=== PATIENT | male | born 1975 | race Caucasian/White ===

== ENCOUNTER 2024-11-11 13:54 | Inpatient (IN) | payer OTHER, SELFPAY ==
[2024-11-10 19:43] VITALS: BP 108/79
--- NOTE | 2024-11-10 19:43 | ED.GENMED ---
ED Provider Triage
<Kesha Carrion PA-C - Last Filed: 11/10/24 19:52>
-
Patient seen by provider in Triage?: Seen in Triage
Attestation: A medical screening examination has been initiated by a qualified medical provider. Based on the assessment performed at this time, it has been determined that an emergent medical condition may exist and the patient has been informed
that further medical evaluation and possible additional diagnostic testing may be needed.
HPI: 49yoM here with bilateral leg swelling x 1 week. Improved temporarily with prednisone. Also c/o abd pain/bloating x 2 weeks. C/o SOB when leaning over and with stress.
GENERAL: Alert , in no apparent distress
EYE: No visual abnormalities.
NECK: Trachea midline
ENT: No visible abnormalities.
LUNGS: No acute respiratory distress
NEUROLOGICAL: Alert and oriented
SKIN: Skin intact. No visible changes.
MUSCULOSKELETAL: Moving extremities normally
PSYCH: Normal and appropriate interaction.
This is a medical evaluation conducted in person to initiate diagnostic evaluation and provide initial therapeutics. Please see further documentation by the treating clinician.
History of Present Illness
<Kesha Carrion PA-C - Last Filed: 11/10/24 19:52>
General
Chief Complaint: Abnormal Lab Value
Time Seen by Provider: 11/10/24 21:20
<India Denise DO - Last Filed: 11/12/24 08:12>
History of Present Illness
History of Present Illness:
49-year-old male with history of prior [place] spotted fever presenting to the emergency department for multiple complaints. Patient reports that he has been following up with his primary care doctor, who sent him in for evaluation. Patient
reports in the past few weeks he has been having abdominal bloating and discomfort to the lower aspect of the abdomen. In the past 2 weeks he started to develop swelling to his lower abdomen into his testicles, which is since has progressed to his
lower extremities. He also reports shortness of breath upon exertion and when leaning forward. Denies any history of cardiac disease. Denies any associated chest pain. Denies fever or cough. He was given prednisone by his primary care doctor
which temporarily helped his symptoms, however when he stopped the prednisone his symptoms resumed. His primary care doctor checked a BNP which was elevated, but also checked a D-dimer which was elevated. He denies any history of blood clots,
recent surgery, recent travel. Denies additional acute medical complaints
Past History
<Kesha Carrion PA-C - Last Filed: 11/10/24 19:52>
Past History
ED Past Medical History: Asthma (Uses a pro-air inhaler and Singulair as needed. He has not used them recently.)
ED Past Surgical History: Other (wisdom teeth)
Social History
Tobacco: Non-smoker
Personal:
Living: with family
Employment: Employed
Phy Exam
<India Denise DO - Last Filed: 11/12/24 08:12>
Physical Exam
Physical Exam:
General: Well-appearing, no clinical signs of dehydration, nontoxic and in no acute distress
HEENT: protecting airway
Neck: appears supple
CV: Normal heart rate, regular rhythm
Resp: No accessory muscle use, no increased work of breathing, diminished air movement to the right lung field
Abd: Mild distention without any focal tenderness
Extremities: +2 pitting edema to bilateral lower extremities, symmetrical. No erythema or warmth to the extremities. Mild swelling to bilateral upper extremities as well
Neuro: alert, no focal neurologic deficit
: deferred
Rectal: deferred
Psych: Normal affect
Skin: Intact
Course
<Kesha Carrion PA-C - Last Filed: 11/10/24 19:52>
Orders/Labs/Results
Orders:
Orders
11/10/24 19:50
Venous Doppler Lwr Ext Bilat [US Periph Venous LOWER Ext Lester] Urgent
Comment:
Reason For Exam: bilateral leg swelling
11/10/24 19:51
Electrocardiogram (*1) Urgent
Reason for Study: Shortness of Breath
EKG- Treatment ONCE
11/10/24 19:57
Complete Blood Count/With Diff Urgent
Comprehensive Metabolic Panel Urgent
Lipase Urgent
Troponin I Urgent
11/10/24 20:01
CT Pe/abd/pel W Urgent
Comment:
Reason For Exam: SOB, elevated D-dimer, abd pain
11/10/24 21:44
PTT Urgent
Prothrombin Time Urgent
11/10/24 22:42
Acetaminophen [Tylenol] 1,000 mg PO NOW STA
11/10/24 22:59
Add On- LAB Urgent
Tests Added?: BNP
11/10/24 23:00
Flush (0.9% Sodium Chloride) [Flush (Nss)] See Dose Instructions IV PER PROTOCOL
11/10/24 23:15
Furosemide [Lasix] 40 mg IV ONCE ONE
11/11/24 00:37
Admit/Transfer Patient As Directed
Co-Sign Provider:
Level of Care: Observation services
Assign to:: Telemetry
Physician / Group: Juan Manuel
Diagnosis: Ascites / Edema
Reason for Telemetry: Arrhythmia
Date to Stop Telemetry: 11/14/24
Time to Stop Telemetry: 11:00
Reason for Hospitalization: Ascites / Edema
Expected length of stay greater than two midnights?: Yes
ELOS- Estimated Length of Stay in days: 2
I certify the patient meets the requirements for IP care: Yes
11/11/24 00:38
Code Status As Directed
Resuscitation Status: Full Code
PRN Pain Medication Management As Directed
May give lesser potent ordered pain med per pt: Yes
preference::
Protocol:: Medication orders for pain may be administered in a
manner that supports deferring to patient preference
when the pt is:
- Requesting an ordered lesser potent pain medication.
Least to most potent pain medications are defined
as: acetaminophen < NSAID < tramadol < opioids
(morphine, oxycodone, hydromorphone).
- Requesting a lesser dose of the same medication IF
ORDERED.
- Requesting a less intrusive route of administration
if both routes are prescribed by the provider (PO <
IV).
11/11/24 01:44
0.9% Sodium Chloride [Nss (Preservative Free)] See Protocol IV PRN PRN
Acetaminophen [Tylenol] 650 mg PO Q4HPRN PRN
Albuterol Nebs [Ventolin Nebules] 2.5 mg INH R Q4HPRN PRN
FOLic ACID [Folvite] 1 mg 0.9% Sodium Chloride 50 ml [Nss] 50 ml IV DAILYPRN
Lorazepam [Ativan] 1 mg IV Q1HPRN PRN
Lorazepam [Ativan] 1 mg PO Q2HPRN PRN
Lorazepam [Ativan] 2 mg IV Q1HPRN PRN
Ondansetron Injectable [Zofran] 4 mg IV Q6HPRN PRN
Polyethylene Glycol Powder [Miralax] 17 grams PO DAILY PRN
11/11/24 01:44
Echo 2D MMode Doppler [Echo 2D MMode Color/Doppler] Routine
Reason for Study: Edema / Ascites
Case Management Consult Once
Case Management Consult: Other
Comment: Substance abuse counseling
Consult Notification Routine
Specialty to Notify: Hematology
Date consulting provider notified: 11/11/24
Time consulting provider notified: 10:09
Notified:: Provider
Consult Notification Routine
Specialty to Notify: Infectious Disease
Date consulting provider notified: 11/11/24
Time consulting provider notified: 10:08
Notified:: Provider
DIETARY CONSULT Routine
Reason for Consult: Nutrition support, possible refeeding guidelines
HEMATOLOGY CONSULT Routine
Consulting Provider: Rafael Espana
Was physician already notified: No
Reason for consult: Adenopathy / Ascites
INFECTIOUS DISEASE CONSULT Routine
Consulting Provider: Samy Higgins
Was physician already notified: No
Reason for consult: Edema / Adenopathy
Activity As Directed
Activity Level: Ambulate
Bladder Scan As Directed
Follow Bladder Retention/Intermittent Cath Algorithm?: Yes
PRN if no void in __ hours: 6
Frequency: Per Retention Algorithm
If Bladder Scan Result >: 400
then:: Straight cath
EKG with chest pain [ECG as needed] As Directed
ECG as needed for:: Chest Pain
I/O [Intake/ Output] As Directed
Frequency: Per unit guidelines
MSAS SCORE As Directed
MSAS Score 0-4: Repeat MSAS every 2 hours until 0-4 for three consecutive assessments, then every 4 hours x 48
hours.
MSAS Score 5-7: For MILD withdrawl symptoms. Repeat MSAS and RASS every 2 hours
MSAS Score 8-11: For MODERATE withdrawal symptoms. Repeat MSAS and RASS every 1 hour. Consider ICU or IMU
level of care.
MSAS Score > 11: For SEVERE withdrawal symptoms. Repeat MSAS and RASS every 1 hour. Notify provider, consider
ICU level of care.
MSAS Additional Instructions: If no improvement or no decrease in score from severe to moderate within 12
hours, consult psychiatry
MSAS Notify Provider: Notify provider if patient requires more than 10 mg of Lorazepam in eight hour period.
Straight Cath As Directed
Frequency: Per Retention Algorithm
Additional Instructions: straight cath as needed per acute urinary retention algorithm for 24 hrs
Additional Instructions: for bladder scan greater than 400 mL
Vital Signs As Directed
Frequency: Per unit guidelines
Weight As Directed
Frequency: Daily
Oxygen Therapy [O2 Therapy] [RESP] Routine
Titrate/Wean O2 to maintain O2 sat greater than (%): 94
DX Deep Vein Thrombosis Video Routine
11/11/24 02:27
CRP [C-Reactive Protein] Routine
Hepatitis C Antibody Routine
TSH Reflex To Free T4 Routine
11/11/24 02:28
ESR [Erythrocyte Sed Rate] Routine
Glycohemoglobin (HgbA1c) Routine
HIV 4th Generation [HIV Combo] Routine
Troponin I Q6H
11/11/24 Breakfast
Regular
At Your Request: Full Participation
11/11/24 08:00
FOLic ACID [Folvite] 1 mg PO DAILY
Pantoprazole [Protonix] 40 mg PO DAILY
Thiamine Injection 200 mg IV Q12
11/11/24 08:02
Basic Metabolic Panel IN AM
Complete Blood Count/No Diff IN AM
Troponin I Q6H
11/11/24 10:00
Furosemide [Lasix] 40 mg IV DAILY
11/11/24 13:46
Change in Level of Care [Level of Care Change] As Directed
Level of Care: Inpatient admission
Reason for Hospitalization: edema
Expected length of stay greater than two midnights?: Yes
ELOS- Estimated Length of Stay in days: 3
I certify the patient meets the requirements for IP care: Yes
11/11/24 18:00
Enoxaparin Sodium [Lovenox] 40 mg SC QPM
11/11/24 20:00
Fluticasone/Salmeterol 115/21 [Advair Hfa 115/21 Mcg Inhaler] 2 puff INH R QPM
11/12/24 07:04
CBC/No Diff [Complete Blood Count/No Diff] IN AM
CMP [Comprehensive Metabolic Panel] IN AM
11/14/24 08:00
Thiamine HCl [Vitamin B1] 100 mg PO BID
12/22/24 11:00
DC Protocol for Telemetry ONCE
Abnormal Lab Results
11/10/24 11/10/24 11/11/24
19:57 21:44 02:27
RBC
MCV 95.0 H fL
(80.0-94.0)
MCH
MCHC 32.5 L g/dL
(33.0-37.0)
PT 14.8 H Sec
(11.4-14.6)
Potassium 5.3 H mmol/L
(3.5-5.1)
BUN 25 H mg/dl
(9-20)
Glucose 116 H mg/dl
(70-99)
Hemoglobin A1c
C-Reactive Protein 10.90 H mg/L
(0.0-10.00)
Total Protein 6.0 L g/dl
(6.3-8.2)
11/11/24 11/11/24
02:28 08:02
RBC 4.62 L 10^6/uL
(4.70-6.10)
MCV 95.5 H fL
(80.0-94.0)
MCH 31.6 H pg
(27.0-31.0)
MCHC
PT
Potassium
BUN 21 H mg/dl
(9-20)
Glucose
Hemoglobin A1c 5.8 H %
(4.0-5.6)
C-Reactive Protein
Total Protein
11/11/24 08:02
11/11/24 08:02
Vital Signs
Initial and Last Documented VS:
Initial Vital Signs
Temp Pulse Resp BP Pulse Ox
98.2 F 113 22 108/79 100
11/10/24 19:43 11/10/24 19:43 11/10/24 19:43 11/10/24 19:43 11/10/24 19:43
Last Documented Vital Signs
Temp Pulse Resp BP Pulse Ox
98.3 F 102 18 99/72 98
11/12/24 08:01 11/12/24 08:01 11/12/24 08:01 11/12/24 08:01 11/12/24 08:01
<India Denise, - Last Filed: 11/12/24 08:12>
Orders/Labs/Results
Orders:
Orders
11/10/24 19:50
Venous Doppler Lwr Ext Bilat [US Periph Venous LOWER Ext Lester] Urgent
Comment:
Reason For Exam: bilateral leg swelling
11/10/24 19:51
Electrocardiogram (*1) Urgent
Reason for Study: Shortness of Breath
EKG- Treatment ONCE
11/10/24 19:57
Complete Blood Count/With Diff Urgent
Comprehensive Metabolic Panel Urgent
Lipase Urgent
Troponin I Urgent
11/10/24 20:01
CT Pe/abd/pel W Urgent
Comment:
Reason For Exam: SOB, elevated D-dimer, abd pain
11/10/24 21:44
PTT Urgent
Prothrombin Time Urgent
11/10/24 22:42
Acetaminophen [Tylenol] 1,000 mg PO NOW STA
11/10/24 22:59
Add On- LAB Urgent
Tests Added?: BNP
11/10/24 23:00
Flush (0.9% Sodium Chloride) [Flush (Nss)] See Dose Instructions IV PER PROTOCOL
11/10/24 23:15
Furosemide [Lasix] 40 mg IV ONCE ONE
11/11/24 00:37
Admit/Transfer Patient As Directed
Co-Sign Provider:
Level of Care: Observation services
Assign to:: Telemetry
Physician / Group: Juan Manuel
Diagnosis: Ascites / Edema
Reason for Telemetry: Arrhythmia
Date to Stop Telemetry: 11/14/24
Time to Stop Telemetry: 11:00
Reason for Hospitalization: Ascites / Edema
Expected length of stay greater than two midnights?: Yes
ELOS- Estimated Length of Stay in days: 2
I certify the patient meets the requirements for IP care: Yes
11/11/24 00:38
Code Status As Directed
Resuscitation Status: Full Code
PRN Pain Medication Management As Directed
May give lesser potent ordered pain med per pt: Yes
preference::
Protocol:: Medication orders for pain may be administered in a
manner that supports deferring to patient preference
when the pt is:
- Requesting an ordered lesser potent pain medication.
Least to most potent pain medications are defined
as: acetaminophen < NSAID < tramadol < opioids
(morphine, oxycodone, hydromorphone).
- Requesting a lesser dose of the same medication IF
ORDERED.
- Requesting a less intrusive route of administration
if both routes are prescribed by the provider (PO <
IV).
11/11/24 01:44
0.9% Sodium Chloride [Nss (Preservative Free)] See Protocol IV PRN PRN
Acetaminophen [Tylenol] 650 mg PO Q4HPRN PRN
Albuterol Nebs [Ventolin Nebules] 2.5 mg INH R Q4HPRN PRN
FOLic ACID [Folvite] 1 mg 0.9% Sodium Chloride 50 ml [Nss] 50 ml IV DAILYPRN
Lorazepam [Ativan] 1 mg IV Q1HPRN PRN
Lorazepam [Ativan] 1 mg PO Q2HPRN PRN
Lorazepam [Ativan] 2 mg IV Q1HPRN PRN
Ondansetron Injectable [Zofran] 4 mg IV Q6HPRN PRN
Polyethylene Glycol Powder [Miralax] 17 grams PO DAILY PRN
11/11/24 01:44
Echo 2D MMode Doppler [Echo 2D MMode Color/Doppler] Routine
Reason for Study: Edema / Ascites
Case Management Consult Once
Case Management Consult: Other
Comment: Substance abuse counseling
Consult Notification Routine
Specialty to Notify: Hematology
Date consulting provider notified: 11/11/24
Time consulting provider notified: 10:09
Notified:: Provider
Consult Notification Routine
Specialty to Notify: Infectious Disease
Date consulting provider notified: 11/11/24
Time consulting provider notified: 10:08
Notified:: Provider
DIETARY CONSULT Routine
Reason for Consult: Nutrition support, possible refeeding guidelines
HEMATOLOGY CONSULT Routine
Consulting Provider: Rafael Espana
Was physician already notified: No
Reason for consult: Adenopathy / Ascites
INFECTIOUS DISEASE CONSULT Routine
Consulting Provider: Samy Higgins
Was physician already notified: No
Reason for consult: Edema / Adenopathy
Activity As Directed
Activity Level: Ambulate
Bladder Scan As Directed
Follow Bladder Retention/Intermittent Cath Algorithm?: Yes
PRN if no void in __ hours: 6
Frequency: Per Retention Algorithm
If Bladder Scan Result >: 400
then:: Straight cath
EKG with chest pain [ECG as needed] As Directed
ECG as needed for:: Chest Pain
I/O [Intake/ Output] As Directed
Frequency: Per unit guidelines
MSAS SCORE As Directed
MSAS Score 0-4: Repeat MSAS every 2 hours until 0-4 for three consecutive assessments, then every 4 hours x 48
hours.
MSAS Score 5-7: For MILD withdrawl symptoms. Repeat MSAS and RASS every 2 hours
MSAS Score 8-11: For MODERATE withdrawal symptoms. Repeat MSAS and RASS every 1 hour. Consider ICU or IMU
level of care.
MSAS Score > 11: For SEVERE withdrawal symptoms. Repeat MSAS and RASS every 1 hour. Notify provider, consider
ICU level of care.
MSAS Additional Instructions: If no improvement or no decrease in score from severe to moderate within 12
hours, consult psychiatry
MSAS Notify Provider: Notify provider if patient requires more than 10 mg of Lorazepam in eight hour period.
Straight Cath As Directed
Frequency: Per Retention Algorithm
Additional Instructions: straight cath as needed per acute urinary retention algorithm for 24 hrs
Additional Instructions: for bladder scan greater than 400 mL
Vital Signs As Directed
Frequency: Per unit guidelines
Weight As Directed
Frequency: Daily
Oxygen Therapy [O2 Therapy] [RESP] Routine
Titrate/Wean O2 to maintain O2 sat greater than (%): 94
DX Deep Vein Thrombosis Video Routine
11/11/24 02:27
CRP [C-Reactive Protein] Routine
Hepatitis C Antibody Routine
TSH Reflex To Free T4 Routine
11/11/24 02:28
ESR [Erythrocyte Sed Rate] Routine
Glycohemoglobin (HgbA1c) Routine
HIV 4th Generation [HIV Combo] Routine
Troponin I Q6H
11/11/24 Breakfast
Regular
At Your Request: Full Participation
11/11/24 08:00
FOLic ACID [Folvite] 1 mg PO DAILY
Pantoprazole [Protonix] 40 mg PO DAILY
Thiamine Injection 200 mg IV Q12
11/11/24 08:02
Basic Metabolic Panel IN AM
Complete Blood Count/No Diff IN AM
Troponin I Q6H
11/11/24 10:00
Furosemide [Lasix] 40 mg IV DAILY
11/11/24 13:46
Change in Level of Care [Level of Care Change] As Directed
Level of Care: Inpatient admission
Reason for Hospitalization: edema
Expected length of stay greater than two midnights?: Yes
ELOS- Estimated Length of Stay in days: 3
I certify the patient meets the requirements for IP care: Yes
11/11/24 18:00
Enoxaparin Sodium [Lovenox] 40 mg SC QPM
11/11/24 20:00
Fluticasone/Salmeterol 115/21 [Advair Hfa 115/21 Mcg Inhaler] 2 puff INH R QPM
11/12/24 07:04
CBC/No Diff [Complete Blood Count/No Diff] IN AM
CMP [Comprehensive Metabolic Panel] IN AM
11/14/24 08:00
Thiamine HCl [Vitamin B1] 100 mg PO BID
11/14/24 11:00
DC Protocol for Telemetry ONCE
Abnormal Lab Results
11/10/24 11/10/24 11/11/24
19:57 21:44 02:27
RBC
MCV 95.0 H fL
(80.0-94.0)
MCH
MCHC 32.5 L g/dL
(33.0-37.0)
PT 14.8 H Sec
(11.4-14.6)
Potassium 5.3 H mmol/L
(3.5-5.1)
BUN 25 H mg/dl
(9-20)
Glucose 116 H mg/dl
(70-99)
Hemoglobin A1c
C-Reactive Protein 10.90 H mg/L
(0.0-10.00)
Total Protein 6.0 L g/dl
(6.3-8.2)
11/11/24 11/11/24
02:28 08:02
RBC 4.62 L 10^6/uL
(4.70-6.10)
MCV 95.5 H fL
(80.0-94.0)
MCH 31.6 H pg
(27.0-31.0)
MCHC
PT
Potassium
BUN 21 H mg/dl
(9-20)
Glucose
Hemoglobin A1c 5.8 H %
(4.0-5.6)
C-Reactive Protein
Total Protein
11/11/24 08:02
11/11/24 08:02
Vital Signs
Initial and Last Documented VS:
Initial Vital Signs
Temp Pulse Resp BP Pulse Ox
98.2 F 113 22 108/79 100
11/10/24 19:43 11/10/24 19:43 11/10/24 19:43 11/10/24 19:43 11/10/24 19:43
Last Documented Vital Signs
Temp Pulse Resp BP Pulse Ox
98.3 F 102 18 99/72 98
11/12/24 08:01 11/12/24 08:01 11/12/24 08:01 11/12/24 08:01 11/12/24 08:01
<India Denise, DO - Last Filed: 11/12/24 08:12>
MDM/Problems Addressed
MDM/Problems Addressed:
49-year-old male with prior history of [place] spotted fever presenting for abdominal bloating, lower extremity swelling, dyspnea. Vital signs on arrival significant for tachycardia.
On exam patient is resting comfortably, however is tachycardic at rest. Patient in no acute discomfort, however does have abdominal bloating, pitting edema to bilateral upper and lower extremities. Diminished air movement to the right lung field.
Differential considerations include acute onset of CHF versus PE. Lower suspicion for pneumonia or infection, no fever, no cough. Patient had medical screening exam completed prior to my assessment. Given known outpatient elevated D-dimer, plan
for CT of the chest imaging as well as CT of the abdomen imaging due to abdominal bloating and discomfort. Plan also for lower extremity ultrasound imaging to rule out DVT. EKG obtained, nonischemic, however is tachycardic. Plan for troponin, BNP.
23:00- Ultrasound is negative for DVT. CT is consistent with moderate right pleural effusion. Patient also has abdominal ascites and hepatomegaly, and cardiac enlargement. At this time suspecting diagnosis of CHF. CT also shows multiple areas of
adenopathy. Underlying malignancy is also consideration. Given persistent tachycardia and degree of swelling, feel warrants admission for IV diuresis and cardiac consultation, possible heme/onc.
<India Denise DO - Last Filed: 11/12/24 08:12>
*EKG
Interpreted by ED Provider?: Yes
EKG Intrepretation Date: 11/10/24
EKG Intrepretation Time: 23:06
Interpretation: abnormal
Comparison EKG: changes noted
Heart Rate: 111
Rate: tachycardiac
Rhythm: sinus
[place]: normal axis
Interval: normal interval
QRS Pattern: normal QRS
Ischemia: no ischemia
*Critical Care Note
Total Time (30-74mins, 75-104mins- exclusive of procedures): Not Applicable
ED Attending Note
<Kesha Carrion PA-C - Last Filed: 11/10/24 19:52>
-
Portions of this chart may have been created with voice recognition software.� Occasional wrong word or��sound alike� substitutions may have occurred due to the inherent limitations of voice recognition software.
Discharge Plan
Departure
Patient Disposition: Admit
Date of Disposition: 11/10/24
Time of Disposition: 23:22
Presentation/result/management discussed w/ accepting MD/DO: Hospitalist
Patient with high blood pressure during this ER visit?: No
Condition: Good
Discharge Problem:
Pleural effusion, Dyspnea on exertion
Interventions
Interventions:
*Risk Screen - Suicide Last Done: 11/11/24 01:54
*General Assessment Last Done: 11/10/24 22:10
*Neglect/Abuse Screening Last Done: 11/10/24 19:43
ED- Fall Risk Assessment Last Done: 11/10/24 22:10
*ED COVID-19 Vaccine History Last Done: 11/11/24 01:54
*Nursing Disposition Last Done: 11/11/24 01:35
Discharge Date and Time
Discharge Date/Time: 11/11/24 01:36
[2024-11-10 20:03] LABS: % Basophils 0.5 % (0-2); % Eosinophils 3.8 % (0-6); % Immature Granulocytes 0.4 % (0-0.5); % Lymphocytes 22.4 % (20.5-51.1); % Monocytes 6.5 % (1.7-9.3); % Neutrophils 66.4 % (42.2-75.2); Absolute Eosinophils 0.3 10^3/uL (0-0.7); Absolute Lymphocytes 1.8 10^3/uL (1.2-3.4); Absolute Monocytes 0.5 10^3/uL (0.1-0.6); Absolute Neutrophils 5.5 10^3/uL (1.4-6.5); Hematocrit 45.5 % (39.0-52.0); Hemoglobin 14.8 g/dL (13.0-18.0); Mean Corp Hgb Conc. 32.5 g/dL (33.0-37.0); Mean Corpuscular Hgb 30.9 pg (27.0-31.0); Mean Platelet Volume 10.1 fL (7.4-10.4); Nucleated Red Blood Cells % 0 % (-); Platelet Count 205 10^3/uL (130-400); Red Blood Cell Count 4.79 10^6/uL (4.70-6.10); Red Cell Dist. Width 14.4 % (11.5-14.5); White Blood Cell Count 8.2 10^3/uL (4.8-10.8)
[2024-11-10 20:22] LABS: ALT (SGPT) 39 U/L (0-50); AST (SGOT) 35 U/L (17-59); Albumin 3.5 g/dl (3.5-5.0); Alkaline Phosphatase 103 U/L (38-126); Blood Urea Nitrogen 25 mg/dl (9-20); Calcium 8.9 mg/dl (8.4-10.2); Carbon Dioxide 26 mmol/L (22-30); Chloride 106 mmol/L (98-107); Glucose 116 mg/dl (70-99); Lipase 162 U/L (23-300); Potassium 5.3 mmol/L (3.5-5.1); Sodium 137 mmol/L (135-145); Total Bilirubin 0.4 mg/dl (0.2-1.3); eGFR > 60.00
[2024-11-10 20:37] LABS: Troponin I 0.021 ng/ml
[2024-11-10 21:42] VITALS: BP 105/73
[2024-11-10 21:58] LABS: INR 1.11; PT 14.8 Sec (11.4-14.6)
[2024-11-10 21:59] LABS: APTT 27.5 Sec (23.4-35.0)
[2024-11-10 23:00] VITALS: BP 119/79
[2024-11-10 23:25] VITALS: BP 111/81
[2024-11-11] VITALS (7 sets, daily range): BP systolic 93–118; BP diastolic 62–82; BMI 31.1
[2024-11-11] MEDS: LASIX 40 MG IV ×2 (00:22→14:02)
--- NOTE | 2024-11-11 00:43 | HPS.HSE ---
Family Physician
-
Family Physician: Jessica Sanders
Chief Complaint
-
Abdominal Distention, LE Edema
History of Present Illness
Patient is a 49y M with PMH significant for asthma who presents to ED complaining of abdominal distention, LE swelling rashes and palpable adenopathy. Patient states that his symptoms initially started about 5 years ago when he was bitten by a
tick. he began to have increased skin symptoms, intermittent swelling and joint pains at that time. He reports that he was intermittently treated with prednisone with transient improvement in these symptoms. He was eventually diagnosed with RMSF
- but this was 2-3 years after his initial symptoms. He was treated with a 10 day course of doxycycline. He did not feel this was sufficient and admits that he has taken additional doxycycline 'whenever I can get it' since then.
He has continued to have intermittent symptoms and has continued to take occasional courses of prednisone.
Patient relates that he developed new abdominal distention about 2 1/2 weeks ago. He reports increased nausea and heartburn. No emesis or diarrhea. No fevers / chills.
He was seen by his PCP and again placed on prednisone. He states that his abdominal distention improved; however, he then developed swelling in the LEs up to and including his genitals.
He had lab tests done today which included elevated D-Dimer, BNP (735.5), negative Babesia screen. He had Alpha-gal testing which was positive for moderate sensitivity to beef and ramos.
Patient was prescribed Lasix by his PCP - which he only started today.
He presented to the ED for further evaluation given his worsening / ongoing symptoms.
He was also started on azithromycin about 3 days ago for complaints of sore throat.
Medical History
Past Medical History
Past Medical History: Reports Other
Additional Past Medical History:
[place] Spotted Fever
Asthma
Past Surgical History: Reports Other
Additional Past Surgical History:
Bilateral Shoulder Surgeries
R Hand Surgery
ORIF Right Ankle / Foot
Social History
Tobacco: Smoker (Current every day smoker. 11/25 ppd.)
Alcohol: Daily (3-4 glasses of wine daily.)
Drug: None
Family History
Family History: Other (Mother: Lymph Node Cancer Sister: Eczema / Alopecia)
Allergies / Home Medications
Allergies reflects when Allergies were last updated in [employer].
Home Medications with original date entered in [employer]
Allergy/Medication List:
Allergies
Allergy/AdvReac Type Severity Reaction Status Date / Time
coconut oil Allergy Rash Verified 11/10/24 19:43
grass Allergy Rash Uncoded 11/10/24 19:43
pollen Allergy Rash Uncoded 11/10/24 19:43
Home Medications
albuterol sulfate 90 mcg/actuation aerosol inhaler 2 puff inhalation R Q6HPRN PRN sob 11/10/24
azithromycin 500 mg tablet 500 mg PO QPM 11/10/24
fluticasone 250 mcg-salmeterol 50 mcg/dose blistr powdr for inhalation 1 inh inhalation R QPM 11/10/24
furosemide 20 mg tablet 20 mg PO BID 11/10/24
Review of Systems
-
History Source: Patient
A 12 point ROS was completed and negative except as noted: Yes
Constitutional: Reports Fatigue; Denies Fever or Chills
EENT: Reports Sore Throat; Denies Runny Nose
Respiratory: Reports Cough; Denies Trouble Breathing
Cardiac: Denies Chest Pain, Diaphoresis, Palpitations or Syncope
Abdomen/GI: Reports Nausea; Denies Abdominal Pain, Vomiting, Diarrhea, Bloody Stools or Black Stools
: Denies Dysuria, Frequency or Flank Pain
Musculoskeletal: Reports Joint Pain, Joint Swelling and Edema
Skin: Reports Itching and Rash
Neurological: Denies Dizzy or Headache
Hematologic/Lymphatic: Reports Swollen Glands
Psych: Denies Depression or Anxiety
Physical Exam
Vital Signs
Vital Signs
Temp Pulse Resp BP Pulse Ox
98.2 F 103 19 119/79 100
11/10/24 19:43 11/11/24 00:22 11/10/24 23:00 11/11/24 00:22 11/10/24 23:00
Physical Exam
General: Other (49y M in no acute distress.)
HEENT: Other (Dry MM. Neck supple without JVD. Mild cervical adenopathy.)
Respiratory: Clear; No Wheezes, Rales or Rhonchi
Cardiac: S1/S2 and Tachycardia; No Murmur
GI: Soft, Non Tender, Non Distended and Normal Bowel Sounds
Musculoskeletal: No Clubbing, No Cyanosis and Other (LE edema - mostly non-pitting - extending to the groin.)
Skin: Other (Generalized erythema diffusely with eczema skin changes / superficial excoriations.)
Neuro: AO x 3 and Nonfocal/grossly intact
Hematologic/Lymphatic: Other (Scattered areas of mild adenopathy (most evident in the groin).)
Laboratory Results
-
11/10/24 19:57
11/10/24 19:57
Laboratory Results
PT 14.8 Sec (11.4-14.6) H 11/10/24 21:44
INR 1.11 11/10/24 21:44
APTT 27.5 Sec (23.4-35.0) 11/10/24 21:44
Total Bilirubin 0.4 mg/dl (0.2-1.3) 11/10/24 19:57
AST 35 U/L (17-59) 11/10/24 19:57
ALT 39 U/L (0-50) 11/10/24 19:57
Alkaline Phosphatase 103 U/L (38-126) 11/10/24 19:57
Troponin I 0.021 ng/ml 11/10/24 19:57
Lipase 162 U/L (23-300) 11/10/24 19:57
Impression/Plan
-
A/P: Patient is a 49y M with PMH significant for asthma and prior RMSF infection who presents to ED complaining of abdominal distention, increased edema, etc.
Ascites / Edema
Mild, Diffuse Adenopathy
- Observe overnight for further evaluation and treatment.
- Symptoms seem to be progressive or intermittent x several years - though worse more recently.
- Labs in the ED essentially unremarkable without evidence for renal or hepatic failure.
- Check Echo.
- Would hold further Lasix for now pending these results.
- ID evaluation as symptoms reportedly started at the same time of prior tick-borne illness.
- Hematology evaluation given diffuse adenopathy and family history.
- If further hospital-based evaluation proves unremarkable - patient would likely benefit from further outpatient evaluation, Rheum consult, etc.
Alpha-gal
- Recent lab assay indicated intermediate sensitivity macy beef / ramos in particular.
- Would recommend patient avoid these proteins and follow for improvement in his skin / joint changes, edema, etc.
DVT Prophylaxis: Lovenox
Code Status: Full
[2024-11-11 03:00] LABS: Erythrocyte Sed Rate 4 mm/hour (0-20)
[2024-11-11 03:06] LABS: Troponin I 0.022 ng/ml
[2024-11-11 03:36] LABS: TSH Reflex To Free T4 2.27 uIU/ml (0.47-4.68)
[2024-11-11 08:19] LABS: Hematocrit 44.1 % (39.0-52.0); Hemoglobin 14.6 g/dL (13.0-18.0); Mean Corp Hgb Conc. 33.1 g/dL (33.0-37.0); Mean Corpuscular Hgb 31.6 pg (27.0-31.0); Mean Corpuscular Volume 95.5 fL (80.0-94.0); Platelet Count 173 10^3/uL (130-400); Red Blood Cell Count 4.62 10^6/uL (4.70-6.10); Red Cell Dist. Width 14.5 % (11.5-14.5); White Blood Cell Count 6.7 10^3/uL (4.8-10.8)
[2024-11-11 08:36] LABS: Troponin I 0.023 ng/ml
[2024-11-11 09:00] LABS: Blood Urea Nitrogen 21 mg/dl (9-20); Calcium 8.6 mg/dl (8.4-10.2); Carbon Dioxide 25 mmol/L (22-30); Chloride 106 mmol/L (98-107); Estimated Creatinine Clearance 92 ml/min; Glucose 89 mg/dl (70-99); Sodium 138 mmol/L (135-145); eGFR > 60.00
[2024-11-11] MEDS: PROTONIX 40 MG PO (09:29)
[2024-11-11] MEDS: THIAMINE INJECTION 200 MG IV ×2 (09:29→21:07)
[2024-11-11] MEDS: FOLVITE 1 MG PO (09:29)
[2024-11-11 09:39] LABS: Glycohemoglobin (HgbA1c) 5.8 % (4.0-5.6)
--- NOTE | 2024-11-11 11:23 | CON.ONC ---
Impression
Impression
Diffuse adenopathy may be reactive secondary to eczema
Waxing and waning anasarca responsive to steroids
Hepatomegaly
Plan
Plan
Clinical picture is somewhat confounding chronic inflammatory changes, waxing and waning anasarca, adenopathy
Concern for multicentric Castleman's disease as well as low-grade lymphoma
Sometimes associated with HHV8
Could attempt an IR biopsy of the left inguinal lymph node first if negative and symptoms persist then excisional biopsy would be warranted
Diagnosed removal require excisional biopsy left inguinal lymph node
Obtain C-reactive protein and serum protein electrophoresis
Outpatient PET CT scan
Will follow
Patient History
History of Present Illness
Patient is a 49y M with PMH significant for asthma who presents to ED complaining of abdominal distention, LE swelling rashes and palpable adenopathy. Patient states that his symptoms initially started about 5 years ago when he was bitten by a
tick. He has intermittently been treated with antibiotics and prednisone without complete resolution. He was seen by his PCP and again placed on prednisone. He states that his abdominal distention improved; however, he then developed swelling in
the LEs up to and including his genitals which is now resolved.
Past-Medical/Surgical History
Past Medical History
[place] Spotted Fever
Asthma
Diffuse eczema
Past Surgical History
Bilateral Shoulder Surgeries
R Hand Surgery
ORIF Right Ankle / Foot
Social History
Tobacco: Smoker (Current every day smoker. 1/2 ppd.)
Alcohol: Daily (3-4 glasses of wine daily.)
Drug: None
Family History
Family History: Other (Mother: Lymph Node Cancer Sister: Eczema / Alopecia)
Patient Medication
�Medication �Instructions �Recorded �Confirmed �Last Taken �Type
albuterol sulfate 90 mcg/actuation 2 puff inhalation R Q6HPRN PRN sob 11/10/24 11/10/24 Unknown History
aerosol inhaler
azithromycin 500 mg tablet 500 mg PO QPM 11/10/24 11/10/24 11/10/24 History
fluticasone 250 mcg-salmeterol 50 1 inh inhalation R QPM 11/10/24 11/10/24 11/10/24 History
mcg/dose blistr powdr for
inhalation
furosemide 20 mg tablet 20 mg PO BID 11/10/24 11/10/24 11/10/24 History
Active Medications
Generic Name Dose Route Start Last Admin
Trade Name Freq PRN Reason Stop Dose Admin
Acetaminophen 650 mg 11/11/24 01:44
Acetaminophen 325 Mg Tablet PO 12/09/24 01:43
Q4HPRN PRN
Mild Pain / Temp > 101
Albuterol Sulfate 2.5 mg 11/11/24 01:44
Albuterol Nebs 2.5 Mg/3 Ml Ampul INH
R Q4HPRN PRN
SOB
Protocol
Enoxaparin Sodium 40 mg 11/11/24 18:00
Enoxaparin Sodium 40 Mg/0.4 Ml Syringe SC 12/09/24 17:59
QPM ARMANI
Folic Acid 1 mg 11/11/24 08:00 11/11/24 09:29
Folic Acid 1 Mg Tablet PO 12/09/24 07:59 1 mg
DAILY ARMANI Administration
Furosemide 40 mg 11/11/24 10:00
Furosemide 40 Mg (10 Mg/Ml) 4 Ml Vial IV 12/09/24 09:59
DAILY ARMANI
Folic Acid 1 mg/ Sodium 50.2 mls @ 200.8 mls/hr 11/11/24 01:44
Chloride IV 12/09/24 01:43
DAILYPRN PRN
if NPO
Lorazepam 1 mg 11/11/24 01:44
Lorazepam 1 Mg Tablet PO 12/09/24 01:43
Q2HPRN PRN
MSAS 5-7
Lorazepam 1 mg 11/11/24 01:44
Lorazepam 2 Mg/Ml Vial IV 12/09/24 01:43
Q1HPRN PRN
MSAS 8-11
Lorazepam 2 mg 11/11/24 01:44
Lorazepam 2 Mg/Ml Vial IV 12/09/24 01:43
Q1HPRN PRN
MSAS > 11
Ondansetron HCl 4 mg 11/11/24 01:44
Ondansetron 4 Mg/2 Ml Vial IV 12/09/24 01:43
Q6HPRN PRN
nausea and vomiting
Pantoprazole Sodium 40 mg 11/11/24 08:00 11/11/24 09:29
Pantoprazole 40 Mg Delayed Release Tablet PO 12/09/24 07:59 40 mg
DAILY ARMANI Administration
Polyethylene Glycol 17 grams 11/11/24 01:44
Polyethylene Glycol Powder 17 Grams Packet PO 12/09/24 01:43
DAILY PRN
Constipation
Fluticasone/Salmeterol 2 puff 11/11/24 20:00
Advair Hfa 115/21 Inhaler INH 12/09/24 19:59
R QPM ARMANI
Sodium Chloride 0 flush 11/10/24 23:00
Sodium Chloride 0.9% (Flush) Syringe IV 12/08/24 22:59
PER PROTOCOL ARMANI
Sodium Chloride 0 ml 11/11/24 01:44
Sodium Chloride 0.9% (Preservative Free) 10 Ml Vial IV 12/09/24 01:43
PRN PRN
To dilute IV Ativan
Protocol
Thiamine HCl 200 mg 11/11/24 08:00 11/11/24 09:29
Thiamine (100 Mg/Ml) 2 Ml Vial IV 11/13/24 20:01 200 mg
Q12 ARMANI Administration
Thiamine HCl 100 mg 11/14/24 08:00
Thiamine 100 Mg Tablet PO 01/19/25 07:59
BID ARMANI
Review of Systems
-
12 point review of systems fails to elicit additional complaints other than those reviewed in the HPI.
Physical Exam
-
Physical Exam
General: Resting comfortably without new complaints
HEENT: Neck supple without JVD. Mild cervical adenopathy. No scleral icterus.
Respiratory: Clear; No Wheezes, Rales or Rhonchi
Cardiac: S1/S2 and Tachycardia; No Murmur
GI: Soft, Non Tender, Non Distended and Normal Bowel Sounds
Musculoskeletal: No Clubbing, No Cyanosis and Other (LE edema - mostly non-pitting - extending to the groin.)
Skin: Generalized erythema diffusely with eczema skin changes / superficial excoriations patient relates this is typical of his eczema
Neuro: AO x 3 and Nonfocal/grossly intact
Hematologic/Lymphatic: Prominent axillary and inguinal adenopathy
Labs
Lab Results
WBC 6.7 10^3/uL (4.8-10.8) 11/11/24 08:02
RBC 4.62 10^6/uL (4.70-6.10) L 11/11/24 08:02
Hgb 14.6 g/dL (13.0-18.0) 11/11/24 08:02
Hct 44.1 % (39.0-52.0) 11/11/24 08:02
MCV 95.5 fL (80.0-94.0) H 11/11/24 08:02
MCH 31.6 pg (27.0-31.0) H 11/11/24 08:02
MCHC 33.1 g/dL (33.0-37.0) 11/11/24 08:02
RDW 14.5 % (11.5-14.5) 11/11/24 08:02
Plt Count 173 10^3/uL (130-400) 11/11/24 08:02
MPV 10.0 fL (7.4-10.4) 11/11/24 08:02
Abs Immat Gran (auto) 0.0 10^3/uL (0-0.05) 11/10/24 19:57
Absolute Neuts (auto) 5.5 10^3/uL (1.4-6.5) 11/10/24 19:57
Absolute Lymphs (auto) 1.8 10^3/uL (1.2-3.4) 11/10/24 19:57
Absolute Monos (auto) 0.5 10^3/uL (0.1-0.6) 11/10/24 19:57
Absolute Eos (auto) 0.3 10^3/uL (0-0.7) 11/10/24 19:57
Absolute Basos (auto) 0.0 10^3/uL (0-0.2) 11/10/24 19:57
Immature Gran % 0.4 % (0-0.5) 11/10/24 19:57
Neutrophils % 66.4 % (42.2-75.2) 11/10/24 19:57
Lymphocytes % 22.4 % (20.5-51.1) 11/10/24 19:57
Monocytes % 6.5 % (1.7-9.3) 11/10/24 19:57
Eosinophils % 3.8 % (0-6) 11/10/24 19:57
Basophils % 0.5 % (0-2) 11/10/24 19:57
Creatinine 1.2 mg/dL (0.7-1.3) 11/11/24 08:02
Vital Signs
Vital Signs
Temp Pulse Resp BP Pulse Ox
97.9 F 101 18 93/64 97
11/11/24 07:54 11/11/24 07:54 11/11/24 07:54 11/11/24 07:54 11/11/24 07:54
[2024-11-11 13:06] LABS: HIV Combo Negative (Negative)
--- NOTE | 2024-11-11 13:44 | W.PN.UPDATE ---
Update Note
Progress Note Update
Concern for multicentric Castleman's disease as well as low-grade lymphoma
ECHO
Given dose of iv lasix again today, hold further doses until ECHO
--- NOTE | 2024-11-11 14:36 | CON.ID ---
Consultation
-
Date/Time Consultation Requested: 11/11/2024 0144
Date/Time Consultation Performed: 11/11/2024 1317
Requesting Provider: Dr. Zambrano
Performing Provider: Dr. Higgins
Reason for Consultation: Edema; Hx RMSF
Chief Complaint / Past History
History of Present Illness
Andrew Hawthorne is a 49-year-old man being evaluated at the request of Dr. Hogan in regards to generalized edema, and a history of RMSF. History is obtained from chart review, along with patient interview.
The patient reports that he is diagnosed with [place] spotted fever approximately 4 years ago following the development of edema and swelling. He reports that his dog also had the disease at the same time. At present, it is not clear how the
diagnosis was made (i.e. PCR or serology). Either way, the patient reports that he was treated with a 10-day course of doxycycline. He reports that he has had travel only to [place], and has never traveled to the [facility].
He presents to the hospital yesterday following worsening lower extremity edema, along with shortness of breath. He has been worked up by his PCP and recently was diagnosed with alpha gal syndrome.
He notes no recent fevers or chills, but notes intermittent generalized pruritus over his body. He does have a underlying history of eczema, and is not followed by a employee relations director for that.
He denies any specific macular or papular rashes on his body. He has noted lymphadenopathy.
Past History
Additional Past Medical History:
Asthma
Eczema
Alpha-gal syndrome
Additional Past Surgical History:
[place] teeth
Allergy History:
coconut oil Allergy (Verified 11/10/24 19:43)
Rash
grass Allergy (Uncoded 11/10/24 19:43)
Rash
pollen Allergy (Uncoded 11/10/24 19:43)
Rash
Medications Reviewed: Yes
Current Antibiotics:
None
Social History
Tobacco: Smoker (1/2 PPD)
Alcohol: Daily (2-3 glasses wine)
Drug: None
Personal:
Living: With Family
Employment: Employed
Family History
Family History: Not Pertinent
Review of Systems
Vital Signs
Temp Pulse Resp BP Pulse Ox
97.7 F 100 18 105/69 97
11/11/24 13:57 11/11/24 14:02 11/11/24 13:57 11/11/24 14:02 11/11/24 07:54
Physical Exam
Physical Exam
Constitutional: No Acute Distress, Comfortable and Non-toxic
Head: Normocephalic
Eyes: Pupils Equal, Pupils Round, No Conjunctival Hemorrhage and Sclera Anicteric
Oral: No Thrush and No Ulcers
Cardiovascular: Regular Rate and S1/S2; Negative S3/S4 or Murmur
Pulmonary: Clear; Negative Wheezes, Rales or Rhonchi
Gastrointestinal: Soft, Non Tender, Non Distended and Normal Bowel Sounds
Extremities: Edema and Other ('Leathery' skin texture); Negative Cyanosis or Erythema
Skin: Warm and Dry; Negative Jaundice
Neurological: Awake and Alert
Psychological: Calm
.
Lab / Diagnostic Study Results
11/11/24 08:02
11/11/24 08:02
Abs Immat Gran (auto) 0.0 10^3/uL (0-0.05) 11/10/24 19:57
Absolute Neuts (auto) 5.5 10^3/uL (1.4-6.5) 11/10/24 19:57
Absolute Lymphs (auto) 1.8 10^3/uL (1.2-3.4) 11/10/24 19:57
Absolute Monos (auto) 0.5 10^3/uL (0.1-0.6) 11/10/24 19:57
Absolute Basos (auto) 0.0 10^3/uL (0-0.2) 11/10/24 19:57
Immature Gran % 0.4 % (0-0.5) 11/10/24 19:57
Neutrophils % 66.4 % (42.2-75.2) 11/10/24 19:57
Lymphocytes % 22.4 % (20.5-51.1) 11/10/24 19:57
Monocytes % 6.5 % (1.7-9.3) 11/10/24 19:57
Eosinophils % 3.8 % (0-6) 11/10/24 19:57
Basophils % 0.5 % (0-2) 11/10/24 19:57
ESR 4 mm/hour (0-20) 11/11/24 02:28
PT 14.8 Sec (11.4-14.6) H 11/10/24 21:44
INR 1.11 11/10/24 21:44
C-Reactive Protein 10.90 mg/L (0.0-10.00) H 11/11/24 02:27
Microbiology Results
Imaging:
11/10/2024 CT chest/abdomen/pelvis: Mild to moderate cardiac enlargement. No pulmonary embolism noted. Moderate and mild left pleural effusion. Adjacent pulmonary parenchymal consolidation (right greater than left) which may be atelectasis versus
pneumonia. Mild hepatomegaly noted. Mild ascites. Mild hilar axillary external iliac and inguinal adenopathy.
Assessment / Plan
Generalized edema
Skin rash
Hx eczema
Lymphadenopathy
Suspected alpha gal syndrome
Hx RMSF
Recommendations:
At present, no immediately identifiable infectious process.
Would continue to monitor off antibiotics.
No role for additional serology at present.
Follow white count temperature curve.
Would agree that patient would benefit from diagnostic lymph node biopsy.
Avoid beef, pork, ramos, or venison for now.
--- NOTE | 2024-11-11 16:45 | CM ---
Alert awake oriented patient who lives with his Stephanie who lives in a 1 story home with 2 step to enter and bed and bathroom on first floor. He is independent in driving and in all activities of daily living.He has no insurance . [facility]
notified and saw pt.Observation letter given but no insurance .
No VN hx / No SNF history
Pharmacy [facility]
PCP DR Sanders
PLAN Home Declined VN
[2024-11-11 17:02] LABS: Hepatitis C Antibody Negative (Negative)
[2024-11-11] MEDS: LOVENOX 40 MG SC (17:26)
[2024-11-11] MEDS: ADVAIR HFA 115/21 MCG INHALER 2 PUFF INH (19:20)
[2024-11-12 03:45] VITALS: BP 108/63
[2024-11-12 08:01] VITALS: BP 99/72
[2024-11-12 08:42] LABS: Hematocrit 46.3 % (39.0-52.0); Mean Corp Hgb Conc. 32.4 g/dL (33.0-37.0); Mean Corpuscular Hgb 30.7 pg (27.0-31.0); Mean Corpuscular Volume 94.9 fL (80.0-94.0); Mean Platelet Volume 11.1 fL (7.4-10.4); Platelet Count 209 10^3/uL (130-400); Red Blood Cell Count 4.88 10^6/uL (4.70-6.10); Red Cell Dist. Width 14.4 % (11.5-14.5); White Blood Cell Count 6.2 10^3/uL (4.8-10.8)
[2024-11-12] MEDS: PROTONIX 40 MG PO (08:51)
[2024-11-12] MEDS: THIAMINE INJECTION 200 MG IV ×2 (08:51→20:30)
[2024-11-12] MEDS: FOLVITE 1 MG PO (08:51)
[2024-11-12 09:00] LABS: ALT (SGPT) 35 U/L (0-50); AST (SGOT) 32 U/L (17-59); Albumin 3.3 g/dl (3.5-5.0); Alkaline Phosphatase 66 U/L (38-126); Blood Urea Nitrogen 18 mg/dl (9-20); Calcium 8.4 mg/dl (8.4-10.2); Carbon Dioxide 27 mmol/L (22-30); Chloride 104 mmol/L (98-107); Estimated Creatinine Clearance 100 ml/min; Glucose 85 mg/dl (70-99); Potassium 3.9 mmol/L (3.5-5.1); Sodium 138 mmol/L (135-145); Total Bilirubin 0.8 mg/dl (0.2-1.3); Total Protein 5.7 g/dl (6.3-8.2); eGFR > 60.00
--- NOTE | 2024-11-12 11:23 | W.PN.ONC ---
Today's Communication / Plan
-
recommend IR guided node biopsy
Impression
Impression
Diffuse adenopathy may be reactive secondary to eczema
Waxing and waning anasarca responsive to steroids
Hepatomegaly
cardiomyopathy - LVWF - 10%
Plan
Plan
recommend IR biopsy of the left inguinal lymph node - discussed w/ hospitalist
Subjective/Objective
Subjective/Objective
Some SOB
Vital Signs:
Vital Signs
Temp Pulse Resp BP Pulse Ox
98.3 F 102 18 99/72 98
11/12/24 08:01 11/12/24 08:01 11/12/24 08:01 11/12/24 08:01 11/12/24 08:01
Lab Results:
Laboratory Data
WBC 6.2 10^3/uL (4.8-10.8) 11/12/24 07:04
Hgb 15.0 g/dL (13.0-18.0) 11/12/24 07:04
Plt Count 209 10^3/uL (130-400) D 11/12/24 07:04
PT 14.8 Sec (11.4-14.6) H 11/10/24 21:44
INR 1.11 11/10/24 21:44
APTT 27.5 Sec (23.4-35.0) 11/10/24 21:44
eGFR > 60.00 11/12/24 07:04
Exam: unchanged
[2024-11-12 11:32] VITALS: BP 111/70
--- NOTE | 2024-11-12 11:44 | CON.CAR ---
Addendum entered and electronically signed by Himanshu Erickson MD 11/12/24 17:10:
I saw and examined the patient.
The Chocolate Molder's note was reviewed and I agree with the note.
Comment:
GEN: No distress, awake, Ox3
HEENT: supple, anicteric, mmm
LUNGS: scatt rhonchi
CV: Reg, S1/S2, 1/6 syst LSB, no gallop
ABD: soft, BS+, NT/ND
EXT: +1 edema
NEURO: Gross non-focal
SKIN: No rash
Plan:
49-year-old male presents with complicated past medical history including asthma, [place] spotted fever, and lymphadenopathy presents with shortness of breath, edema, pleural effusions, and abdominal distention. He was found to have
hepatomegaly and ascites. Troponin was negative. Echocardiogram revealed a new cardiomyopathy with EF of 10%. He was placed on diuretics and cardiology was consulted.
Echocardiogram with LVEF 10% with severe global hypokinesis, RV hypokinesis, moderate MR, mild to moderate TR PA pressure 35.
The etiology of his new cardiomyopathy and acute heart failure with reduced ejection fraction is unclear. He does drink alcohol 4 drinks per night. He remains in sinus rhythm.
Continue Lasix 40 mg IV twice daily. Continue Toprol 25 mg daily. He has no significant health insurance. Would push beta-shelly first but then likely add lisinopril/spironolactone for cost reasons. Could consider Entresto as well. Will need
to review cost of Farxiga.
Tentative plan would be for right and left heart catheterization on Friday to look for coronary artery disease.
Other etiologies would include alcohol abuse, viral cardiomyopathy as well. Would consider cardiac MRI after cardiac cath.
Continue telemetry and follow creatinine on diuretics.
Continue treatments for lymphadenopathy. Will discuss with primary team whether there are any plans for biopsies. We would prefer to do his catheterization after any biopsies.
Original Note:
Consultation
Consultation Request
Date/Time Consultation Requested: 11/12/2024
Date/Time Consultation Performed: 11/12/2024
Requesting Provider: Dr. Ochoa
Performing Provider: Rachel Stephenson PA-C for Dr. Erickson
Reason for Consultation: Cardiomyopathy
Medical History
-
History of Present Illness:
Patient is a 49-year-old male with past medical history significant for asthma and Tomball spotted fever who presents to emergency department with complaints of abdominal distention x 2 to 3 weeks associated with nausea and heartburn as well
as new lower extremity edema into scrotum and dyspnea on exertion. Patient was seen by family doctor and recently placed on steroids with temporary improvement of symptoms. He was placed on antibiotics for sore throat 3 days prior to admission and
was given Lasix but he only took 1 dose. Patient's family doctor checked BNP and D-dimer which were both elevated prompting him to come to emergency department. Lower extremity venous Doppler showed no evidence of DVT bilaterally. There was
prominent bilateral inguinal lymph nodes noted. CT of chest abdomen pelvis was performed which was negative for PE, aortic dissection or aneurysm. There was evidence of cardiomegaly. No pericardial effusion. There was moderate right and small
left pleural effusion. There was mild hepatomegaly and ascites. There was mild hilar, axillary, external iliac inguinal adenopathy. Troponins were negative. EKG showed sinus tachycardia with nonspecific T wave abnormality in lateral leads.
Patient underwent echocardiogram which showed reduced ejection fraction of 10% prompting cardiology consult. Patient was started on IV Lasix first dose given 11/11/2024.
PMH:
Tomball Spotted Fever
Asthma
Past Medical History
Past Medical History: Other (See HPI)
Past Surgical History: Orthopedic (Bilateral shoulder surgeries, right hand surgery, ORIF Right Ankle / Foot) and Other ([place] teeth extraction)
Social History
Tobacco: Smoker (1/2-1 pack daily)
Alcohol: Daily (3-4 glasses of wine)
Drug: None
Personal:
Living: With Family
Employment: Employed (starting own business)
Family History
Family History: Other (Mother: Lymph Node Cancer; Aunt had heart transplant, father has PPM)
Allergies / Home Medications
Allergy/AdvReac Type Severity Reaction Status Date / Time
coconut oil Allergy Rash Verified 11/10/24 19:43
grass Allergy Rash Uncoded 11/10/24 19:43
pollen Allergy Rash Uncoded 11/10/24 19:43
�Medication �Instructions �Recorded �Confirmed �Type
albuterol sulfate 90 mcg/actuation 2 puff inhalation R Q6HPRN PRN sob 11/10/24 11/10/24 History
aerosol inhaler
azithromycin 500 mg tablet 500 mg PO QPM 11/10/24 11/10/24 History
fluticasone 250 mcg-salmeterol 50 1 inh inhalation R QPM 11/10/24 11/10/24 History
mcg/dose blistr powdr for
inhalation
furosemide 20 mg tablet 20 mg PO BID 11/10/24 11/10/24 History
Review of Systems
-
History Source: Patient
All other systems: Negative unless noted
Physical Exam
Vital Signs
Temp Pulse Resp BP Pulse Ox
97.7 F 108 18 111/70 100
11/12/24 11:32 11/12/24 11:32 11/12/24 11:32 11/12/24 11:32 11/12/24 11:32
GEN: No distress, awake, Ox3, sitting up in bed
HEENT: supple, anicteric, mmm
LUNGS: Mildly diminished at bases Rt>Lt, no wheezes/rales
CV: Reg, S1/S2, 1/6 syst LSB murmur
ABD: mildly distended and firm, BS+
EXT: +2 LE edema delfin LE, trace to +1 edema of UE
NEURO: Gross non-focal
SKIN: Generalized erythema diffusely with eczema skin changes, superficial excoriations
Lab Results
11/12/24 07:04
11/12/24 07:04
Troponin I 0.023 ng/ml 11/11/24 08:02
Impression / Plan
-
Family Physician: Jessica Sanders
Sample Distributor: None prior to admission, initial consultation Dr. Erickson
Impression:
Presented 11/10/2024 with bilateral lower extremity edema, abdominal distention and nausea/heartburn x 2 to 3 weeks
Acute heart failure with reduced ejection fraction, proBNP
Cardiomyopathy, unclear etiology
Moderate mitral regurgitation
Pulmonary hypertension
Hepatomegaly
Pleural effusion
Hyperkalemia, resolved
Elevated CRP
Concern for Castleman's disease
Tobacco abuse
Daily alcohol use
History of Tomball Spotted Fever
Asthma
Echo 11/11/2024: EF 10% with severe global hypokinesis. Moderately dilated left ventricle. Mild concentric LVH. Stage III DD. Moderate MR, mild to moderate TR, PAP 35 to 40 mmHg
Plan:
-Presented 11/10/2024 with bilateral lower extremity edema, SOB, abdominal distention and nausea/heartburn x 2 to 3 weeks
-New diagnosis of Cardiomyopathy with cardiomegaly of unclear etiology on echo 11/11/2024
-Acute heart failure with reduced ejection fraction, proBNP pending but was told elevated as outpatient
-Ongoing diuresis with IV Lasix 40 mg twice daily.
-Monitor weights and electrolytes with diuresis
-Will need GDMT: Started on Toprol 25 mg 11/12/2024. Blood pressure on lower side. Will continue to monitor with diuresis and if able add SHERIDAN/ARB.
-Will need eventual ischemic evaluation
-Echo showed moderate mitral regurgitation and pulmonary hypertension. Continue to follow with diuresis and medical therapy
-Pleural effusion on CT of chest noted. Hopefully will improve with IV diuresis
-Diffuse adenopathy may be reactive secondary to eczema however, patient being evaluated by heme-onc for concern of Castleman's disease with low-grade lymphoma. Patient for IR guided biopsy of left inguinal lymph node and eventual outpatient PET
scan
-Daily alcohol use: [facility] protocol. Discussed importance of abstinence from alcohol given newly diagnosed cardiomyopathy
-Tobacco abuse: Discussed importance of smoking cessation
-Discussed with nursing
[facility] 11/12/2024:
Patient is a 49-year-old male with past medical history significant for asthma and Tomball spotted fever who presents to emergency department with complaints of abdominal distention x 2 to 3 weeks associated with nausea and heartburn as well
as new lower extremity edema into scrotum and dyspnea on exertion. Patient was seen by family doctor and recently placed on steroids with temporary improvement of symptoms. He was placed on antibiotics for sore throat 3 days prior to admission. P
patient's family doctor checked BNP and D-dimer which were both elevated prompting him to come to emergency department. Lower extremity venous Doppler showed no evidence of DVT bilaterally. There was prominent bilateral inguinal lymph nodes noted.
CT of chest abdomen pelvis was performed which was negative for PE, aortic dissection or aneurysm. There was evidence of cardiomegaly. No pericardial effusion. There was moderate right and small left pleural effusion. There was mild
hepatomegaly and ascites. There was mild hilar, axillary, external iliac inguinal adenopathy. Troponins were negative. EKG showed sinus tachycardia with nonspecific T wave abnormality in lateral leads. Patient underwent echocardiogram which
showed reduced ejection fraction of 10% prompting cardiology consult. Patient was started on IV Lasix first dose given 11/11/2024.
Data Reviewed
-
EKG: Report Reviewed by me, Discussed with Physician and Discussed with Patient
CT Scan: Report Reviewed by me, Discussed with Physician and Discussed with Patient
Ultrasound: Report Reviewed by me, Discussed with Physician and Discussed with Patient
Medical Tests (Nuc Med, Echo etc): Report Reviewed by me, Discussed with Physician and Discussed with Patient
Labs: Labs Reviewed by me and Discussed with Patient
Old Records: Reviewed
[2024-11-12] MEDS: TOPROL XL 25 MG PO (12:08)
[2024-11-12] MEDS: LASIX 40 MG IV ×2 (12:09→16:42)
--- NOTE | 2024-11-12 13:53 | W.PN.HOSP.TC ---
Today's Communication/Plan
-
Continue IV diuresis
Initiate beta-shelly
Monitor blood pressures for initiation of SHERIDAN/ARB
Ischemic and ICD evaluation as per cardiology
IR consulted for inguinal lymph node biopsy
Assessment / Plan
Assessment / Plan
Physical Exam
General: Other (49y M in no acute distress.)
HEENT: Other (Dry MM. Neck supple without JVD. Mild cervical adenopathy.)
Respiratory: Clear; No Wheezes, Rales or Rhonchi
Cardiac: S1/S2 and Tachycardia; No Murmur
GI: Soft, Non Tender, Non Distended and Normal Bowel Sounds
Musculoskeletal: No Clubbing, No Cyanosis and Other (LE edema - mostly non-pitting - extending to the groin.)
Skin: Other (Generalized erythema diffusely with eczema skin changes / superficial excoriations.)
Neuro: AO x 3 and Nonfocal/grossly intact
Hematologic/Lymphatic: Other (Scattered areas of mild adenopathy (most evident in the groin).)
A/P: Patient is a 49y M with PMH significant for asthma and prior RMSF infection who presents to ED complaining of abdominal distention, increased edema, etc.
#Acute HFrEF
�Unclear etiology
�EF 10%, appears to have non ischemic pattern
�Cont furosemide 40 mg IV twice daily
� Started on beta-shelly, monitor blood pressures
� Does not have insurance, Entresto and Ecometrica costs are high
� Monitor blood pressure for initiation of SHERIDAN/ARB
� Will need eventual ischemic evaluation
�ICD placement as per cardiology
� Cardiac MRI as per cardiology
� Follow-up biopsy results
�Educated on alcohol and tobacco cessation
Ascites / Edema
Pleural effusion
-2/2 to CHF
-see plan above
Mild, Diffuse Adenopathy
� May be reactive secondary to eczema, hematology wants to rule out multicentric Castleman's disease as well as low-grade lymphoma
� IR consulted for biopsy of the left inguinal lymph node
� Hematology following
Alcohol use
� Drinks daily
� MSAS protocol
� Monitor for withdrawal symptoms
Tobacco abuse
� Smoking cessation advised
Alpha-gal
- Recent lab assay indicated intermediate sensitivity macy beef / ramos in particular.
- Would recommend patient avoid these proteins and follow for improvement in his skin / joint changes, edema, etc.
DVT Prophylaxis: Lovenox
Code Status: Full
Total time spent on today's encounter was 52 minutes which included time spent in counseling the patient/family regarding diagnosis and treatment plan as listed above, goals of care, and symptom management. Case was discussed with nursing staff,
specialists, and care coordinators/case management. All labs and imaging personally reviewed by me. Remainder the time spent in detailed review of previous records, lab data, imaging, and other medical provider documentation.
Anticipated Discharge: > 48 hours
Subjective/Interval History
-
Date of Service: November 12, 2024
slight improvement in sob, le edema; ef 10%
Objective Data
-
Labs:
Laboratory Results
11/12/24
07:04
WBC 6.2
Hgb 15.0
Hct 46.3
Plt Count 209 D
Sodium 138
Potassium 3.9
Chloride 104
Carbon Dioxide 27
BUN 18
Creatinine 1.1
Glucose 85
Calcium 8.4
Total Bilirubin 0.8
AST 32
ALT 35
Alkaline Phosphatase 66
Vital Signs:
Vital Signs
Temp Pulse Resp BP Pulse Ox
97.7 F 108 18 111/70 100
11/12/24 11:32 11/12/24 12:08 11/12/24 11:32 11/12/24 12:08 11/12/24 11:32
I&O
11/11/24 11/12/24 11/13/24
06:59 06:59 06:59
Intake Total 1920 / 1920
Output Total 2299
Balance -2299 / -2299
Review of Systems
-
History Source: Patient
All other systems: Not reviewed unless documented
Data Reviewed
-
CT Scan: Report Reviewed by me
Ultrasound: Report Reviewed by me
Labs: Labs Reviewed by me
--- NOTE | 2024-11-12 14:41 | W.PN.UPDATE ---
Update Note
Progress Note Update
IR consulted for left inguinal lymph node biopsy. Due to constraints of the schedule will attempt to perform this on Friday. If patient is stable for discharge this can be scheduled as an outpatient
[2024-11-12 15:15] LABS: NT-proBNP 5180 pg/ml
[2024-11-12 15:26] VITALS: BP 99/69
--- NOTE | 2024-11-12 16:12 | W.PN.ID1 ---
Date of Service
Date of Service: November 12, 2024
Today's Communication
Observe off antibiotics.
Assessment / Plan
Generalized edema
Skin rash
Hx eczema
Lymphadenopathy
Suspected alpha gal syndrome
Hx RMSF
Recommendations:
At present, no immediately identifiable infectious process.
Would continue to monitor off antibiotics.
No role for additional serology at present.
Follow white count temperature curve.
Would agree that patient would benefit from diagnostic lymph node biopsy.
Avoid beef, pork, ramos, or venison for now given positive alpha-gal serology
����������������������������������������������������������
Chief Complaint
-: Other (Edema)
Subjective / Review of Systems
Review of Systems: No Fever and No Chills
Vital Signs / Physical Exam
Vital Signs
Vital Signs
Temp Pulse Resp BP Pulse Ox
98.1 F 103 18 99/69 100
11/12/24 15:26 11/12/24 15:26 11/12/24 15:26 11/12/24 15:26 11/12/24 15:26
Physical Exam
Constitutional: No Acute Distress, Comfortable and Non-toxic
Eyes: Sclera Anicteric
Cardiovascular: S1/S2; Negative S3/S4
Pulmonary: Non Labored
Gastrointestinal: Soft, Non Tender and Non Distended
Extremities: Edema
Neurological: Awake and Alert
Psychological: Calm
Objective Data
Lab Data
Lab Results
11/12/24 07:04
11/12/24 07:04
ESR 4 mm/hour (0-20) 11/11/24 02:28
PT 14.8 Sec (11.4-14.6) H 11/10/24 21:44
INR 1.11 11/10/24 21:44
APTT 27.5 Sec (23.4-35.0) 11/10/24 21:44
Estimated Creat Clear 100 ml/min 11/12/24 07:04
Total Bilirubin 0.8 mg/dl (0.2-1.3) 11/12/24 07:04
AST 32 U/L (17-59) 11/12/24 07:04
ALT 35 U/L (0-50) 11/12/24 07:04
Alkaline Phosphatase 66 U/L (38-126) 11/12/24 07:04
C-Reactive Protein 10.90 mg/L (0.0-10.00) H 11/11/24 02:27
Most recent labs reviewed.
Imaging:
11/11/2024 ECHO (TTE): Moderately dilated LV. Severely reduced LV systolic function, with EF approximately 10%. Severe global left ventricular hypokinesis. Moderate mitral regurgitation. Dilated pulmonary artery. IVC is dilated and does not
collapse. No intracardiac mass or thrombus formation seen. Please see full dictation for additional detail.
11/10/2024 CT chest/abdomen/pelvis: Mild to moderate cardiac enlargement. No pulmonary embolism noted. Moderate and mild left pleural effusion. Adjacent pulmonary parenchymal consolidation (right greater than left) which may be atelectasis versus
pneumonia. Mild hepatomegaly noted. Mild ascites. Mild hilar axillary external iliac and inguinal adenopathy.
Care Review
Plan reviewed with: Physician (Cardiology)
[2024-11-12] MEDS: LOVENOX 40 MG SC (16:41)
[2024-11-12] MEDS: BENADRYL 25 MG PO (16:41)
--- NOTE | 2024-11-12 17:40 | CM ---
Farxiga $698.and Entresto $825were above $600 as per [facility] pharmacist Good RX over $300. Pt and MD informed .
Pt said he has a PCP he [place] with [place].
Pt said he will drive himself home.
[facility] said pt will need to submit papers to assist with hospital bill.
Pt for heart cath Friday.
PLAN Home no needs
[2024-11-12] MEDS: ADVAIR HFA 115/21 MCG INHALER 2 PUFF INH (19:14)
[2024-11-12 19:59] VITALS: BP 93/63
[2024-11-12] MEDS: MELATONIN 5 MG PO (23:26)
[2024-11-12 23:55] VITALS: BP 103/68
[2024-11-13 03:17] VITALS: BP 96/61
[2024-11-13 06:00] VITALS: BMI 29.9
[2024-11-13 06:48] LABS: Hematocrit 45.2 % (39.0-52.0); Hemoglobin 14.5 g/dL (13.0-18.0); Mean Corp Hgb Conc. 32.1 g/dL (33.0-37.0); Mean Corpuscular Hgb 30.8 pg (27.0-31.0); Mean Platelet Volume 10.5 fL (7.4-10.4); Platelet Count 199 10^3/uL (130-400); Red Blood Cell Count 4.71 10^6/uL (4.70-6.10); Red Cell Dist. Width 14.3 % (11.5-14.5); White Blood Cell Count 7.3 10^3/uL (4.8-10.8)
[2024-11-13 07:08] LABS: ALT (SGPT) 35 U/L (0-50); AST (SGOT) 29 U/L (17-59); Albumin 3.4 g/dl (3.5-5.0); Alkaline Phosphatase 65 U/L (38-126); Blood Urea Nitrogen 17 mg/dl (9-20); Calcium 8.3 mg/dl (8.4-10.2); Carbon Dioxide 27 mmol/L (22-30); Chloride 103 mmol/L (98-107); Estimated Creatinine Clearance 81 ml/min; Glucose 95 mg/dl (70-99); Potassium 3.6 mmol/L (3.5-5.1); Sodium 137 mmol/L (135-145); Total Bilirubin 0.7 mg/dl (0.2-1.3); Total Protein 5.8 g/dl (6.3-8.2); eGFR > 60.00
[2024-11-13 07:55] VITALS: BP 99/61
[2024-11-13] MEDS: FOLVITE 1 MG PO (09:24)
[2024-11-13] MEDS: LASIX 40 MG IV ×2 (09:25→16:43)
[2024-11-13] MEDS: TOPROL XL 25 MG PO ×2 (09:25→19:36)
[2024-11-13] MEDS: PROTONIX 40 MG PO (09:25)
[2024-11-13] MEDS: THIAMINE INJECTION 200 MG IV ×2 (09:26→19:35)
[2024-11-13 11:36] VITALS: BP 88/66
--- NOTE | 2024-11-13 11:54 | W.PN.CARDCBS ---
Today's Communication / Plan
-
Still somewhat tachycardic. Will increase Toprol to 25 mg p.o. twice daily.
Continue IV Lasix 40 mg IV twice daily. Likely switch to p.o. in a.m.
Hopefully add afterload reduction over next 24 to 48 hours if blood pressure tolerates.
Plan is for lymph node biopsy on Friday. We will proceed with right left heart catheterization on Friday. Creatinine stable at 1.2.
Add Farxiga.
Impression / Plan
-
Family Physician: Jessica Sanders
Dupligraph Operator: None prior to admission, initial consultation Dr. Erickson
Impression:
Presented 11/10/2024 with bilateral lower extremity edema, abdominal distention and nausea/heartburn x 2 to 3 weeks
Acute heart failure with reduced ejection fraction, proBNP
Cardiomyopathy, unclear etiology
Moderate mitral regurgitation
Pulmonary hypertension
Hepatomegaly
Pleural effusion
Hyperkalemia, resolved
Elevated CRP
Concern for Castleman's disease
Tobacco abuse
Daily alcohol use
History of [place] Spotted Fever
Asthma
Echo 11/11/2024: EF 10% with severe global hypokinesis. Moderately dilated left ventricle. Mild concentric LVH. Stage III DD. Moderate MR, mild to moderate TR, PAP 35 to 40 mmHg
Plan:
-Presented 11/10/2024 with bilateral lower extremity edema, SOB, abdominal distention and nausea/heartburn x 2 to 3 weeks
-New diagnosis of Cardiomyopathy with cardiomegaly of unclear etiology on echo 11/11/2024
-Acute heart failure with reduced ejection fraction, proBNP 5180
-Ongoing diuresis with IV Lasix 40 mg twice daily.
-Monitor weights and electrolytes with diuresis. Weight overall down 20 pounds.
-Will need GDMT: Started on Toprol 25 mg 11/12/2024. Blood pressure on lower side. Will continue to monitor with diuresis and if able add SHREIDAN/ARB. Increase Toprol to 25 mg p.o. twice daily.
-Plan will be for cardiac catheterization after lymph node biopsy early next week. Add Farxiga.
-Echo showed moderate mitral regurgitation and pulmonary hypertension. Continue to follow with diuresis and medical therapy
-Pleural effusion on CT of chest noted. Hopefully will improve with IV diuresis
-Diffuse adenopathy may be reactive secondary to eczema however, patient being evaluated by heme-onc for concern of Castleman's disease with low-grade lymphoma. Patient for IR guided biopsy of left inguinal lymph node and eventual outpatient PET
scan
-Daily alcohol use: MSAS protocol. Discussed importance of abstinence from alcohol given newly diagnosed cardiomyopathy
-Tobacco abuse: Discussed importance of smoking cessation
-Discussed with nursing
HPI 11/12/2024:
Patient is a 49-year-old male with past medical history significant for asthma and Mil[place] spotted fever who presents to emergency department with complaints of abdominal distention x 2 to 3 weeks associated with nausea and heartburn as well
as new lower extremity edema into scrotum and dyspnea on exertion. Patient was seen by family doctor and recently placed on steroids with temporary improvement of symptoms. He was placed on antibiotics for sore throat 3 days prior to admission. P
patient's family doctor checked BNP and D-dimer which were both elevated prompting him to come to emergency department. Lower extremity venous Doppler showed no evidence of DVT bilaterally. There was prominent bilateral inguinal lymph nodes noted.
CT of chest abdomen pelvis was performed which was negative for PE, aortic dissection or aneurysm. There was evidence of cardiomegaly. No pericardial effusion. There was moderate right and small left pleural effusion. There was mild
hepatomegaly and ascites. There was mild hilar, axillary, external iliac inguinal adenopathy. Troponins were negative. EKG showed sinus tachycardia with nonspecific T wave abnormality in lateral leads. Patient underwent echocardiogram which
showed reduced ejection fraction of 10% prompting cardiology consult. Patient was started on IV Lasix first dose given 11/11/2024.
Progress Note - Dupligraph Operator
Subjective
Date of Service: November 13, 2024
Overall improving. Breathing is improved. Tentative plan is for lymph node biopsy on Friday.
Objective
Labs:
11/13/24 06:04
11/13/24 06:04
Labs
Hgb 14.5 g/dL (13.0-18.0) 11/13/24 06:04
Hct 45.2 % (39.0-52.0) 11/13/24 06:04
Plt Count 199 10^3/uL (130-400) 11/13/24 06:04
PT 14.8 Sec (11.4-14.6) H 11/10/24 21:44
INR 1.11 11/10/24 21:44
APTT 27.5 Sec (23.4-35.0) 11/10/24 21:44
Sodium 137 mmol/L (135-145) 11/13/24 06:04
Potassium 3.6 mmol/L (3.5-5.1) 11/13/24 06:04
BUN 17 mg/dl (9-20) 11/13/24 06:04
Creatinine 1.2 mg/dL (0.7-1.3) 11/13/24 06:04
Glucose 95 mg/dl (70-99) 11/13/24 06:04
Troponins
11/10/24 11/11/24 11/11/24
19:57 02:28 08:02
Troponin I 0.021 0.022 0.023
Vital Signs and I&O:
Vital Signs
Temp Pulse Resp BP Pulse Ox
97.8 F 103 16 88/66 95
11/13/24 11:36 11/13/24 11:36 11/13/24 11:36 11/13/24 11:36 11/13/24 11:36
Vital Signs
Temp Pulse Resp BP Pulse Ox
97.8 F 103 16 88/66 95
11/13/24 11:36 11/13/24 11:36 11/13/24 11:36 11/13/24 11:36 11/13/24 11:36
Intake & Output
11/11/24 11/12/24 11/13/24 11/14/24
06:59 06:59 06:59 06:59
Intake Total 1919 / 1919 480 / 480
Output Total 2299 / 2299
Balance -2299 / -2299 1919 / 1919 480 / 480
Physical Exam
Physical Exam
GEN: No distress, awake, Ox3
HEENT: supple, anicteric, mmm
LUNGS: CTA, no wheezes/rales
CV: Reg, S1/S2, 1/6 syst LSB, S3+
ABD: soft, BS+, NT/ND
EXT: No edema
NEURO: Gross non-focal
SKIN: No rash
--- NOTE | 2024-11-13 14:45 | W.PN.HOSP.TC ---
Today's Communication/Plan
-
iv lasix
increase BB
bx on friday
rhc/lhc on friday
Assessment / Plan
Assessment / Plan
Physical Exam
General: Other (49y M in no acute distress.)
HEENT: Other (Dry MM. Neck supple without JVD. Mild cervical adenopathy.)
Respiratory: Clear; No Wheezes, Rales or Rhonchi
Cardiac: S1/S2 and Tachycardia; No Murmur
GI: Soft, Non Tender, Non Distended and Normal Bowel Sounds
Musculoskeletal: No Clubbing, No Cyanosis and Other (LE edema - mostly non-pitting - extending to the groin.)
Skin: Other (Generalized erythema diffusely with eczema skin changes / superficial excoriations.)
Neuro: AO x 3 and Nonfocal/grossly intact
Hematologic/Lymphatic: Other (Scattered areas of mild adenopathy (most evident in the groin).)
A/P: Patient is a 49y M with PMH significant for asthma and prior RMSF infection who presents to ED complaining of abdominal distention, increased edema, etc.
#Acute HFrEF
�Unclear etiology
�EF 10%, appears to have non ischemic pattern
�Cont furosemide 40 mg IV twice daily
� Started on beta-shelly, increase to 25 mg twice daily, monitor blood pressures
� Does not have insurance, Entrest[employer] and [email or web address] costs are high
� Monitor blood pressure for initiation of SHERIDAN/ARB
� Will need eventual ischemic evaluation
�ICD placement as per cardiology
� Right and left heart cath tentatively on Friday
�Educated on alcohol and tobacco cessation
Ascites / Edema
Pleural effusion
-2/2 to CHF
-see plan above
Mild, Diffuse Adenopathy
� May be reactive secondary to eczema, hematology wants to rule out multicentric Castleman's disease as well as low-grade lymphoma
� IR consulted for biopsy of the left inguinal lymph node�tentatively Friday
� Hematology following
Alcohol use
� Drinks daily
� MSAS protocol
� Monitor for withdrawal symptoms
�Cessation advised
Tobacco abuse
� Smoking cessation advised
Alpha-gal
- Recent lab assay indicated intermediate sensitivity macy beef / ramos in particular.
- Would recommend patient avoid these proteins and follow for improvement in his skin / joint changes, edema, etc.
DVT Prophylaxis: Lovenox
Code Status: Full
Total time spent on today's encounter was 51 minutes which included time spent in counseling the patient/family regarding diagnosis and treatment plan as listed above, goals of care, and symptom management. Case was discussed with nursing staff,
specialists, and care coordinators/case management. All labs and imaging personally reviewed by me. Remainder the time spent in detailed review of previous records, lab data, imaging, and other medical provider documentation.
Anticipated Discharge: Within 24 hours
Subjective/Interval History
-
Date of Service: November 13, 2024
No acute events overnight
Objective Data
-
Labs:
Laboratory Results
11/13/24
06:04
WBC 7.3
Hgb 14.5
Hct 45.2
Plt Count 199
Sodium 137
Potassium 3.6
Chloride 103
Carbon Dioxide 27
BUN 17
Creatinine 1.2
Glucose 95
Calcium 8.3 L
Total Bilirubin 0.7
AST 29
ALT 35
Alkaline Phosphatase 65
Vital Signs:
Vital Signs
Temp Pulse Resp BP Pulse Ox
97.8 F 103 16 88/66 95
11/13/24 11:36 11/13/24 11:36 11/13/24 11:36 11/13/24 11:36 11/13/24 11:36
I&O
11/12/24 11/13/24 11/14/24
06:59 06:59 06:59
Intake Total 1920 / 1920 480 / 480
Balance 1919 480 / 480
Review of Systems
-
History Source: Patient
All other systems: Not reviewed unless documented
Data Reviewed
-
CT Scan: Report Reviewed by me
Ultrasound: Report Reviewed by me
Labs: Labs Reviewed by me
[2024-11-13 15:30] VITALS: BP 100/69
[2024-11-13] MEDS: LOVENOX 40 MG SC (16:43)
[2024-11-13] MEDS: ZOFRAN 4 MG IV (18:39)
[2024-11-13] MEDS: ADVAIR HFA 115/21 MCG INHALER 2 PUFF INH (19:19)
[2024-11-13 19:27] VITALS: BP 99/59
[2024-11-13] MEDS: ATIVAN 1 MG IV (19:51)
[2024-11-13] MEDS: NSS (PRESERVATIVE FREE) 10 ML IV (19:52)
[2024-11-13 23:56] VITALS: BP 98/69
[2024-11-14] MEDS: MELATONIN 5 MG PO ×2 (02:54→20:15)
[2024-11-14 03:45] VITALS: BP 92/59
[2024-11-14] MEDS: ZOFRAN 4 MG IV ×2 (05:20→15:20)
[2024-11-14 07:31] LABS: ALT (SGPT) 35 U/L (0-50); AST (SGOT) 30 U/L (17-59); Albumin 3.7 g/dl (3.5-5.0); Alkaline Phosphatase 77 U/L (38-126); Blood Urea Nitrogen 22 mg/dl (9-20); Calcium 8.2 mg/dl (8.4-10.2); Carbon Dioxide 25 mmol/L (22-30); Chloride 100 mmol/L (98-107); Estimated Creatinine Clearance 61 ml/min; Glucose 98 mg/dl (70-99); Potassium 4.1 mmol/L (3.5-5.1); Sodium 135 mmol/L (135-145); Total Bilirubin 0.7 mg/dl (0.2-1.3); Total Protein 6.1 g/dl (6.3-8.2); eGFR 52.17
[2024-11-14] MEDS: FOLVITE 1 MG PO (07:37)
[2024-11-14] MEDS: LASIX 40 MG IV (07:37)
[2024-11-14] MEDS: TOPROL XL 25 MG PO ×2 (07:37→19:15)
[2024-11-14] MEDS: VITAMIN B1 100 MG PO ×2 (07:37→19:14)
[2024-11-14] MEDS: PROTONIX 40 MG PO (07:37)
[2024-11-14 07:43] LABS: Hematocrit 46.7 % (39.0-52.0); Hemoglobin 15.5 g/dL (13.0-18.0); Mean Corp Hgb Conc. 33.2 g/dL (33.0-37.0); Mean Corpuscular Hgb 30.9 pg (27.0-31.0); Mean Corpuscular Volume 93.2 fL (80.0-94.0); Mean Platelet Volume 11.9 fL (7.4-10.4); Platelet Count 175 10^3/uL (130-400); Red Blood Cell Count 5.01 10^6/uL (4.70-6.10); Red Cell Dist. Width 14.1 % (11.5-14.5); White Blood Cell Count 7.1 10^3/uL (4.8-10.8)
[2024-11-14 07:55] VITALS: BP 92/64
--- NOTE | 2024-11-14 09:38 | W.PN.CARDCBS ---
Today's Communication / Plan
-
-New diagnosis of Cardiomyopathy with cardiomegaly of unclear etiology on echo 11/11/2024
-Acute heart failure with reduced ejection fraction, proBNP 5180
-Hold lasix with worsening cr
-Cont to monitor wts and lytes. Wt down 20 lbs
-Cont GDMT: Toprol 25 mg started 11/12/2024 and increased.
-Acute renal failure currently precludes ACEI/ARB.
-Pt can not likely afford Farxiga
-Plan for right and left cardiac cath likely fridayNov [address] biopsy Nov 15.
-Echo showed moderate mitral regurgitation and pulmonary hypertension. Continue to follow with diuresis and medical therapy
-Pleural effusion on CT of chest noted. Hopefully will improves with IV diuresis
-Check Chest xray
-Diffuse adenopathy may be reactive secondary to eczema however, patient being evaluated by heme-onc for concern of Castleman's disease with low-grade lymphoma.
-Patient for IR guided biopsy of left inguinal lymph node and eventual outpatient PET scan
-Daily alcohol use: [facility] protocol.
-Discussed importance of abstinence from alcohol given newly diagnosed cardiomyopathy
-Tobacco abuse
-Discussed importance of smoking cessation
Impression / Plan
-
.
Family Physician: Jessica Sanders
Elevator Repairer Helper: None prior to admission, initial consultation Dr. Erickson
Impression:
Presented 11/10/2024 with bilateral lower extremity edema, abdominal distention and nausea/heartburn x 2 to 3 weeks
Acute heart failure with reduced ejection fraction, proBNP
Cardiomyopathy, EF 10%, unclear etiology
Moderate mitral regurgitation
Pulmonary hypertension
Acute renal insufficiency
Hepatomegaly
Pleural effusion
Hyperkalemia, resolved
Elevated CRP
Concern for Castleman's disease
Tobacco abuse
Daily alcohol use
History of [place] Spotted Fever
Asthma
Echo 11/11/2024: EF 10% with severe global hypokinesis. Moderately dilated left ventricle. Mild concentric LVH. Stage III DD. Moderate MR, mild to moderate TR, PAP 35 to 40 mmHg
Plan:
-Presented 11/10/2024 with bilateral lower extremity edema, SOB, abdominal distention and nausea/heartburn x 2 to 3 weeks
-New diagnosis of Cardiomyopathy with cardiomegaly of unclear etiology on echo 11/11/2024
-Acute heart failure with reduced ejection fraction, proBNP 5180
-Hold lasix with worsening cr
-Cont to monitor wts and lytes. Wt down 20 lbs
-Cont GDMT: Toprol 25 mg started 11/12/2024 and increased.
-Acute renal failure currently precludes ACEI/ARB.
-Pt can not likely afford Farxiga
-Plan for right and left cardiac cath likely fridayNov [address] biopsy Nov 15.
-Echo showed moderate mitral regurgitation and pulmonary hypertension. Continue to follow with diuresis and medical therapy
-Pleural effusion on CT of chest noted. Hopefully will improves with IV diuresis
-Check Chest xray
-Diffuse adenopathy may be reactive secondary to eczema however, patient being evaluated by heme-onc for concern of Castleman's disease with low-grade lymphoma.
-Patient for IR guided biopsy of left inguinal lymph node and eventual outpatient PET scan
-Daily alcohol use: MSAS protocol.
-Discussed importance of abstinence from alcohol given newly diagnosed cardiomyopathy
-Tobacco abuse
-Discussed importance of smoking cessation
HPI 11/12/2024:
Patient is a 49-year-old male with past medical history significant for asthma and [place] spotted fever who presents to emergency department with complaints of abdominal distention x 2 to 3 weeks associated with nausea and heartburn as well
as new lower extremity edema into scrotum and dyspnea on exertion. Patient was seen by family doctor and recently placed on steroids with temporary improvement of symptoms. He was placed on antibiotics for sore throat 3 days prior to admission. P
patient's family doctor checked BNP and D-dimer which were both elevated prompting him to come to emergency department. Lower extremity venous Doppler showed no evidence of DVT bilaterally. There was prominent bilateral inguinal lymph nodes noted.
CT of chest abdomen pelvis was performed which was negative for PE, aortic dissection or aneurysm. There was evidence of cardiomegaly. No pericardial effusion. There was moderate right and small left pleural effusion. There was mild
hepatomegaly and ascites. There was mild hilar, axillary, external iliac inguinal adenopathy. Troponins were negative. EKG showed sinus tachycardia with nonspecific T wave abnormality in lateral leads. Patient underwent echocardiogram which
showed reduced ejection fraction of 10% prompting cardiology consult. Patient was started on IV Lasix first dose given 11/11/2024.
Progress Note - Elevator Repairer Helper
Subjective
Date of Service: November 14, 2024
Pt seen and examined. Complaints of persistent dry cough. No chest pain or shortness of breath.
Objective
Labs:
11/14/24 05:31
11/14/24 05:31
Labs
Hgb 15.5 g/dL (13.0-18.0) 11/14/24 05:31
Hct 46.7 % (39.0-52.0) 11/14/24 05:31
Plt Count 175 10^3/uL (130-400) 11/14/24 05:31
PT 14.8 Sec (11.4-14.6) H 11/10/24 21:44
INR 1.11 11/10/24 21:44
APTT 27.5 Sec (23.4-35.0) 11/10/24 21:44
Sodium 135 mmol/L (135-145) 11/14/24 05:31
Potassium 4.1 mmol/L (3.5-5.1) 11/14/24 05:31
BUN 22 mg/dl (9-20) H 11/14/24 05:31
Creatinine 1.6 mg/dL (0.7-1.3) H 11/14/24 05:31
Glucose 98 mg/dl (70-99) 11/14/24 05:31
Vital Signs and I&O:
Vital Signs
Temp Pulse Resp BP Pulse Ox
97.4 F 83 14 92/64 96
11/14/24 07:55 11/14/24 07:55 11/14/24 07:55 11/14/24 07:55 11/14/24 07:55
Vital Signs
Temp Pulse Resp BP Pulse Ox
97.4 F 83 14 92/64 96
11/14/24 07:55 11/14/24 07:55 11/14/24 07:55 11/14/24 07:55 11/14/24 07:55
Intake & Output
11/12/24 11/13/24 11/14/24 11/15/24
06:59 06:59 06:59 06:59
Intake Total 1919 480 / 480
Balance 1919 480 / 480
Physical Exam
Physical Exam
General: No acute distress, AAOX3
Neck: Negative JVD
Heart: Regular, Negative S3 positive S1/S2, Negative S4, No murmur
Lungs: CTA b/l, negative wheezes/rales/rhonchi
Abd: Positive BS, NT/ND, neg rebound/rigidity/guarding
Ext: Negative cyanosis/clubbing/edema
Neuro: nonfocal
[2024-11-14 11:30] VITALS: BP 91/63
[2024-11-14] MEDS: BENADRYL 25 MG PO (12:10)
--- NOTE | 2024-11-14 13:27 | W.PN.HOSP.TC ---
Today's Communication/Plan
-
Hold diuretics due to rising creatinine, continue to monitor
Left lung biopsy tentatively tomorrow 11/15
Right and left heart cath tentatively on Friday 11/16
Assessment / Plan
Assessment / Plan
Physical Exam
General: Other (49y M in no acute distress.)
HEENT: Other (Dry MM. Neck supple without JVD. Mild cervical adenopathy.)
Respiratory: Clear; No Wheezes, Rales or Rhonchi
Cardiac: S1/S2 and Tachycardia; No Murmur
GI: Soft, Non Tender, Non Distended and Normal Bowel Sounds
Musculoskeletal: No Clubbing, No Cyanosis and Other (LE edema - mostly non-pitting - extending to the groin.)
Skin: Other (Generalized erythema diffusely with eczema skin changes / superficial excoriations.)
Neuro: AO x 3 and Nonfocal/grossly intact
Hematologic/Lymphatic: Other (Scattered areas of mild adenopathy (most evident in the groin).)
A/P: Patient is a 49y M with PMH significant for asthma and prior RMSF infection who presents to ED complaining of abdominal distention, increased edema, etc.
#Acute HFrEF
�Unclear etiology
�EF 10%, appears to have non ischemic pattern
�Hold furosemide 40 mg IV twice daily due to rising Scr
� Started on beta-shelly, increase to 25 mg twice daily, monitor blood pressures
� Does not have insurance, Entresto and Farxiga costs are high
� Monitor blood pressure for initiation of SHERIDAN/ARB - hold now for SHANELL
�ICD placement as per cardiology
� Right and left heart cath tentatively on Friday
�Educated on alcohol and tobacco cessation
Ascites / Edema
Pleural effusion
-2/2 to CHF
-see plan above
-improved
#SHANELL
-holding diuretics today
-avoid nephrotoxic agents
Mild, Diffuse Adenopathy
� May be reactive secondary to eczema, hematology wants to rule out multicentric Castleman's disease as well as low-grade lymphoma
� IR consulted for biopsy of the left inguinal lymph node�tentatively Friday
� Hematology following
Alcohol use
� Drinks daily
� MSAS protocol
� Monitor for withdrawal symptoms
�Cessation advised
Tobacco abuse
� Smoking cessation advised
Alpha-gal
- Recent lab assay indicated intermediate sensitivity macy beef / ramos in particular.
- Would recommend patient avoid these proteins and follow for improvement in his skin / joint changes, edema, etc.
DVT Prophylaxis: HSQ
Code Status: Full
Anticipated Discharge: > 48 hours
Subjective/Interval History
-
Date of Service: November 14, 2024
No acute events overnight, rising creatinine, stop Lasix
Objective Data
-
Labs:
Laboratory Results
11/14/24
05:31
WBC 7.1
Hgb 15.5
Hct 46.7
Plt Count 175
Sodium 135
Potassium 4.1
Chloride 100
Carbon Dioxide 25
BUN 22 H
Creatinine 1.6 H
Glucose 98
Calcium 8.2 L
Total Bilirubin 0.7
AST 30
ALT 35
Alkaline Phosphatase 77
Vital Signs:
Vital Signs
Temp Pulse Resp BP Pulse Ox
97.4 F 84 16 91/63 96
11/14/24 11:30 11/14/24 11:30 11/14/24 11:30 11/14/24 11:30 11/14/24 11:30
I&O
11/13/24 11/14/24 11/15/24
06:59 06:59 06:59
Intake Total 480 / 480
Balance 480 / 480
Review of Systems
-
History Source: Patient
All other systems: Not reviewed unless documented
Data Reviewed
-
CT Scan: Report Reviewed by me
Ultrasound: Report Reviewed by me
Labs: Labs Reviewed by me
[2024-11-14] MEDS: HEPARIN 5000 UNITS SC ×2 (15:20→23:09)
[2024-11-14] MEDS: TYLENOL 650 MG PO (15:21)
[2024-11-14 15:30] VITALS: BP 91/64
[2024-11-14] MEDS: ADVAIR HFA 115/21 MCG INHALER 2 PUFF INH (19:11)
[2024-11-14 19:50] VITALS: BP 91/73
[2024-11-14 23:50] VITALS: BP 102/68
[2024-11-15] VITALS (9 sets, daily range): BP systolic 86–104; BP diastolic 67–76; BMI 29.9
[2024-11-15 07:48] LABS: Hematocrit 46.4 % (39.0-52.0); Hemoglobin 15.4 g/dL (13.0-18.0); Mean Corp Hgb Conc. 33.2 g/dL (33.0-37.0); Mean Corpuscular Hgb 31.2 pg (27.0-31.0); Mean Corpuscular Volume 94.1 fL (80.0-94.0); Mean Platelet Volume 11.3 fL (7.4-10.4); Platelet Count 199 10^3/uL (130-400); Red Blood Cell Count 4.93 10^6/uL (4.70-6.10); Red Cell Dist. Width 14.2 % (11.5-14.5); White Blood Cell Count 9.3 10^3/uL (4.8-10.8)
[2024-11-15 08:13] LABS: ALT (SGPT) 32 U/L (0-50); AST (SGOT) 27 U/L (17-59); Albumin 3.7 g/dl (3.5-5.0); Alkaline Phosphatase 66 U/L (38-126); Blood Urea Nitrogen 26 mg/dl (9-20); Calcium 8.3 mg/dl (8.4-10.2); Carbon Dioxide 31 mmol/L (22-30); Chloride 98 mmol/L (98-107); Estimated Creatinine Clearance 57 ml/min; Glucose 90 mg/dl (70-99); Potassium 4.8 mmol/L (3.5-5.1); Sodium 136 mmol/L (135-145); Total Bilirubin 1.2 mg/dl (0.2-1.3); Total Protein 6.1 g/dl (6.3-8.2); eGFR 48.51
[2024-11-15] MEDS: PROTONIX 40 MG PO (09:04)
[2024-11-15] MEDS: VITAMIN B1 100 MG PO ×2 (09:04→21:49)
[2024-11-15] MEDS: FOLVITE 1 MG PO (09:04)
[2024-11-15] MEDS: HEPARIN 5000 UNITS SC ×3 (09:09→23:15)
[2024-11-15] MEDS: TOPROL XL PO (09:28)
--- NOTE | 2024-11-15 10:03 | W.PN.ONC ---
Today's Communication / Plan
-
IR biopsy of the left inguinal lymph node - to be done in IR today
For LHC/RHC 11/16
Heme/onc will f/u once path has been finalized. Please call w/ questions in the interim.
Impression
Impression
Diffuse adenopathy may be reactive secondary to eczema
Waxing and waning anasarca responsive to steroids
Hepatomegaly
cardiomyopathy - LVWF - 10%
Plan
Plan
IR biopsy of the left inguinal lymph node - to be done in IR today
For LHC/RHC 11/16
Heme/onc will f/u once path has been finalized. Please call w/ questions in the interim.
Subjective/Objective
Subjective/Objective
Notes some right arm swelling, just proximal to antecubital fossa, s/p removal of peripheral IV this am
Vital Signs:
Vital Signs
Temp Pulse Resp BP Pulse Ox
98.1 F 88 18 91/69 100
11/15/24 07:20 11/15/24 07:20 11/15/24 07:20 11/15/24 07:20 11/15/24 07:20
appears comfortable, no conversational dyspnea
right upper arm swelling, tenderness
diffuse skin erythema/dryness
Lab Results:
Laboratory Data
WBC 9.3 10^3/uL (4.8-10.8) 11/15/24 06:46
Hgb 15.4 g/dL (13.0-18.0) 11/15/24 06:46
Plt Count 199 10^3/uL (130-400) 11/15/24 06:46
PT 14.8 Sec (11.4-14.6) H 11/10/24 21:44
INR 1.11 11/10/24 21:44
APTT 27.5 Sec (23.4-35.0) 11/10/24 21:44
eGFR 48.51 11/15/24 06:46
--- NOTE | 2024-11-15 11:08 | CM ---
Addendum entered by Paulina Oquendo RN 11/15/24 12:57:
Admission changed [place] number in computer Correct number is [phone] .
Per she would like to speak with [facility] . Bj text number.
Original Note:
Pt for biopsy in IR today.
Pt for r and L heart cath tomorrow.
Spoke with [facility]
Pt said he has a PCP he will follow up with at nd.
Pt said he will drive himself home.
Spoke with [facility] she will see him to request paper to assist in hospital bill and follow up coverage.
PLAN Home no needs
--- NOTE | 2024-11-15 11:24 | W.PN.HOSP.TC ---
Today's Communication/Plan
-
Will do SHANELL work up including urine electrolytes, consult nephrology
Change to Toprol XL 12.5 so he can receive it
Assessment / Plan
Assessment / Plan
Physical Exam
General: Other (49y M in no acute distress.)
HEENT: Other (moist MM.
Respiratory: Clear; No Wheezes, Rales or Rhonchi
Cardiac: S1/S2
GI: Soft, Non Tender, Non Distended and Normal Bowel Sounds
Musculoskeletal: No Clubbing, No Cyanosis
Skin: Other (dry skin, Generalized erythema diffusely with eczema skin changes / superficial excoriations.)
Neuro: AO x 3 and Nonfocal/grossly intact
Psych: calm, pleasant
A/P: Patient is a 49y M with PMH significant for asthma and prior RMSF infection who presents to ED complaining of abdominal distention, increased edema, etc.
#Acute HFrEF
�Unclear etiology, recent viral infection RMSF, could be related
�EF 10%, appears to have non ischemic pattern
�Held furosemide 40 mg IV twice daily due to rising Scr
� Started on beta-shelly, reduce to 12.5 mg XL dose in favor of using SHERIDAN when renal function stabilizes.
� Does not have insurance, [employer] and [employer] costs are high
� Monitor blood pressure
�ICD placement as per cardiology
� Right and left heart cath tentatively on Friday
�Educated on alcohol and tobacco cessation
Ascites / Edema
Pleural effusion
-2/2 to CHF
-see plan above
-improved
#SHANELL
Will do SHANELL work up including urine electrolytes, consult nephrology
Recent contrast study done on 11/10
- avoid nephrotoxic including diuretics
-. Avoid hypotension
Mild, Diffuse Adenopathy
� May be reactive secondary to eczema, hematology wants to rule out multicentric Castleman's disease as well as low-grade lymphoma.
� IR consulted for biopsy of the left inguinal lymph node�tentatively Friday
� Hematology following
Alcohol use
� Drinks daily
� MSAS protocol
� Monitor for withdrawal symptoms
�Cessation advised
Tobacco abuse
� Smoking cessation advised
Alpha-gal
- Recent lab assay indicated intermediate sensitivity macy beef / ramos in particular.
- Would recommend patient avoid these proteins and follow for improvement in his skin / joint changes, edema, etc.
DVT Prophylaxis: HSQ
Code Status: Full
Total time spent to see the patient, examine the patient, review data and lab results, discuss the treatment plan with patient, nursing staff around 55 minutes
Anticipated Discharge: > 48 hours
Subjective/Interval History
-
Date of Service: November 15, 2024
No chest pain
No sob
Nurse, low BP this AM, pt is NPO
Objective Data
-
Labs:
Laboratory Results
11/15/24
06:46
WBC 9.3
Hgb 15.4
Hct 46.4
Plt Count 199
Sodium 136
Potassium 4.8
Chloride 98
Carbon Dioxide 31 H
BUN 26 H
Creatinine 1.7 H
Glucose 90
Calcium 8.3 L
Total Bilirubin 1.2
AST 27
ALT 32
Alkaline Phosphatase 66
Vital Signs:
Vital Signs
Temp Pulse Resp BP Pulse Ox
98.1 F 88 18 91/69 100
11/15/24 07:20 11/15/24 07:20 11/15/24 07:20 11/15/24 07:20 11/15/24 07:20
I&O
11/14/24 11/15/24 11/16/24
06:59 06:59 06:59
Intake Total 1200 / 1200
Balance 1200 / 1200
--- NOTE | 2024-11-15 15:32 | W.CON.NEPH ---
Consultation
-
Date/Time Consultation Requested: 11/15/24 1132
Date/Time Consultation Performed: 11/15/24 1615
Requesting Provider: Dhaval Ty
Performing Provider: Alis Salmon
Reason for Consultation: SHANELL
Medical History
-
Chief Complaint: Abd distension, edema
History of Present Illness:
49y M with PMH significant for asthma on inhalers, who presents to ED on 11/11 with complaining of abdominal distention, LE swelling rashes and palpable adenopathy. Patient had symptoms for last about 5 years ago when he was bitten by a tick, he
would have flare up of these symp and improve with prednisone. He was eventually diagnosed with RMSF - but this was 2-3 years after his initial symptoms. He eventually completed 10 day course of doxycycline,but he takes additional abx when he
thinks needed.
Patient relates that he developed new abdominal distention about 2 1/2 weeks ago. He was seen by his PCP and again placed on prednisone. He states that his abdominal distention improved; however, he then developed swelling in the LEs up to and
including his genitals. Was given lasix by PCP. He reports increased nausea and heartburn, No emesis or diarrhea. No fevers / chills. He had Alpha-gal testing which was positive for moderate sensitivity to beef and ramos. CT shows diffuse
adenopathy.
he diagnosed with new CHF , ef low 10%. He started on IV lasix and wt decreasing. His cr on admit was at 1.3, juan f 1.1. Today it is up at 1.7 hence nephrology consulted, lasix held since 11/14. He is planned to have [facility] tomorrow. He had LN biopsy
today. he reports no fever, chills, no cp. no abd pain or diarrhea. He has eczema for longtime and uses topical creams. Denies NSAIDs use.
Past Medical History
[place] Spotted Fever
Asthma
Past Surgical History: Other (Bilateral Shoulder Surgeries R Hand Surgery ORIF Right Ankle / Foot)
Social History
Tobacco: Smoker (1/PPD)
Alcohol: Daily (3-4 glasses wine)
Drug: None
Personal:
Living: With Family
Employment: Employed (medical professionals )
Family History
Mother: Lymph Node Cancer Sister: Eczema / Alopecia
no CKD
Allergies / Home Medications
Allergy/AdvReac Type Severity Reaction Status Date / Time
coconut oil Allergy Rash Verified 11/10/24 19:43
grass Allergy Rash Uncoded 11/10/24 19:43
pollen Allergy Rash Uncoded 11/10/24 19:43
�Medication �Instructions �Recorded �Confirmed �Type
albuterol sulfate 90 mcg/actuation 2 puff inhalation R [id number] PRN sob 11/10/24 11/10/24 History
aerosol inhaler
azithromycin 500 mg tablet 500 mg PO QPM Infection 11/10/24 11/10/24 History
fluticasone 250 mcg-salmeterol 50 1 inh inhalation R QPM 11/10/24 11/10/24 History
mcg/dose blistr powdr for Lung/Breathing Issues
inhalation
furosemide 20 mg tablet 20 mg PO BID Fluid 11/10/24 11/10/24 History
Retention/Swelling
Review of Systems
-
all complete 12 point ROS have been inquired and found negative other than stated in HPI
Physical Exam
Vital Signs
Vital Signs
Temp Pulse Resp BP Pulse Ox
97.8 F 86 16 97/73 95
11/15/24 14:05 11/15/24 15:20 11/15/24 15:20 11/15/24 15:20 11/15/24 15:12
Lab Results
WBC 9.3 10^3/uL (4.8-10.8) 11/15/24 06:46
RBC 4.93 10^6/uL (4.70-6.10) 11/15/24 06:46
Hgb 15.4 g/dL (13.0-18.0) 11/15/24 06:46
Hct 46.4 % (39.0-52.0) 11/15/24 06:46
Plt Count 199 10^3/uL (130-400) 11/15/24 06:46
Sodium 136 mmol/L (135-145) 11/15/24 06:46
Potassium 4.8 mmol/L (3.5-5.1) 11/15/24 06:46
Chloride 98 mmol/L (98-107) 11/15/24 06:46
Carbon Dioxide 31 mmol/L (22-30) H 11/15/24 06:46
BUN 26 mg/dl (9-20) H 11/15/24 06:46
Creatinine 1.7 mg/dL (0.7-1.3) H 11/15/24 06:46
eGFR 48.51 11/15/24 06:46
Glucose 90 mg/dl (70-99) 11/15/24 06:46
Calcium 8.3 mg/dl (8.4-10.2) L 11/15/24 06:46
Jlf-W-Wujxviaengx Pept 5180 pg/ml 11/12/24 07:04
Albumin 3.7 g/dl (3.5-5.0) 11/15/24 06:46
CT abd:with contrast
IMPRESSION:
No pulmonary embolism.
Mild to moderate cardiac enlargement.
Moderate and mild left pleural effusion. Adjacent pulmonary parenchymal consolidation, right greater than left, atelectasis versus pneumonia.
Mild hepatomegaly.
Mild ascites.
No obstructive uropathy.
No bowel obstruction. Minor colonic fecal burden.
Mild hilar, axillary, external iliac, and inguinal adenopathy.
No mass or extrinsic compression of the inferior vena cava or iliac vessels.
echo:
CONCLUSIONS
Left ventricle is moderately dilated.
Severely reduced left ventricular systolic function.
Left ventricular ejection fraction is 10% by visual assessment.
Severe global left ventricular hypokinesis.
Mild concentric left ventricular hypertrophy.
Reduced right ventricular systolic function.
Moderate mitral regurgitation.
Mild to moderate tricuspid regurgitation.
Estimated pulmonary artery pressure of 35-40 mmHg assuming a right atrial
pressure of 15 mmHg.
Trace pulmonic regurgitation.
Dilated pulmonary artery.
Normal pericardium without effusion.
Pleural effusion present.
The IVC is dilated and does not collapse.
Physical Exam
General: Awake, Alert, Oriented, AOx3, No Distress and Nontoxic
HEENT: EOMI and Anicteric
Respiratory: Clear
Cardiac: S1/S2 and Regular Rate/Rhythm
Breast: Deferred by me
Abdomen: Soft, Nontender and Nondistended
Musculoskeletal: No Cyanosis and Edema (trace)
Skin: No Rash
Neuro: Nonfocal/Grossly Intact
Psych: Mood/afflect pleasant, Insight/judgement good and Appropriate
Data Reviewed
-
Radiology: Report Reviewed by me and Discussed with Patient
Labs: Labs Reviewed by me and Discussed with Patient
Assessment/Plan
-
IMP:
SHANELL
Acute HFrEF- 10%,moderate mitral regurgitation and pulmonary hypertension
Ascites / Edema
Pleural effusion
Mild, Diffuse Adenopathy
Alcohol use
Tobacco abuse
Alpha-gal syndrome
eczema
Hepatomegaly
Plan:
A/w edema, new CHF EF 10%
SHANELL likely from contrast on 11/10+diuresis- cr on admit 1.3 now 1.7
lasix on Hold, check UA and Fena , U PCR
also follow bladder scan , CT on admit neg for hydro
s/p LN biopsy today
would wait for cr to improve prior having LHC
BP soft on low dose BB
monitor withdrawals
avoid nephrotoxins
labs in am
d/w pt and nursing
[2024-11-15 16:14] LABS: Urine Sodium 29 mmol/L (30-90)
--- NOTE | 2024-11-15 16:18 | W.PN.CARDCBS ---
Addendum entered and electronically signed by Johanna Stovall DO 11/15/24 17:33:
I saw and examined the patient.
The Supervisor Pumping's note was reviewed and I agree with the note.
Comment: Patient seen and examined with multiple family members at bedside prior to anticipated left inguinal lymph node biopsy today. Denies chest pain or pressure. Continues to have lower extremity swelling and abdominal distention. Shortness
of breath improved
GEN: No distress, awake, Ox3, sitting up in bed
HEENT:mmm
LUNGS: Coarse breath sounds improved with cough, absent breath sounds at right base, few scattered wheezes
CV: Reg, S1/S2, 1/6 syst murmur
ABD: soft, BS+, NT/ND
EXT: Trace bilateral lower extremity edema, no clubbing or cyanosis
NEURO: Gross non-focal
SKIN: Generalized erythema diffusely with eczema skin changes, superficial excoriations
Plan:
-Presented 11/10/2024 with bilateral lower extremity edema, SOB, abdominal distention and nausea/heartburn x 2 to 3 weeks
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
-proBNP 5180
-Continues to examine with volume overload however fattening is worsening. Will hold Lasix today and plan for a right/left heart cath tomorrow, Pending renal function
-Hold lasix with worsening cr 1.3 on admission, bumped to 1.7 (11/15)
-Cont to monitor wts and lytes. Wt down 20 lbs
-Cont GDMT: Toprol 25 mg started 11/12/2024. BP does not allow for further up titration
-Acute renal failure currently precludes ACEI/ARB/entresto or aldactone at this time.
-Additionally patient has no insurance which will likely limit his medical therapy.Will not be able to afford SGLT2 inhibitors
-Tobacco and alcohol cessation strongly advised
-Patient's mother reports a family history of cardiomyopathy with a cousin who required a heart transplant . They deny known familial cardiomyopathy syndrome however I have asked them to get further information.
SHANELL with creatinine bumped to 1.7; diuretics on hold
-Nephrology has been consulted and feels SHANELL likely secondary to contrast 11/10/2024 and diuresis.
-Continue to hold Lasix
-Checking Fena , U PCR UA
-Continue to avoid nephrotoxins
-Echo showed moderate mitral regurgitation and pulmonary hypertension. Continue to follow with diuresis and medical therapy
-Pleural effusion on CT of chest noted. Hopefully will improves with IV diuresis
-Diffuse adenopathy may be reactive secondary to eczema however, patient being evaluated by heme-onc for concern of Castleman's disease with low-grade lymphoma.
-Patient for IR guided biopsy of left inguinal lymph node 11/15 with results pending and eventual outpatient PET scan
-Oncology following
-Daily alcohol use: [facility] protocol.
-Discussed importance of abstinence from alcohol given newly diagnosed cardiomyopathy
-Tobacco abuse
-Discussed importance of smoking cessation
Plan discussed with patient, nursing, nephrology and hospitalist
Original Note:
Today's Communication / Plan
-
Left inguinal lymph node biopsy today
Diuretics on hold
Continue to avoid nephrotoxic agents
Needs cardiac catheterization once creatinine improved
Nephrology now following
Impression / Plan
-
.
Family Physician: Jessica Sanders
Refining Machine Operator: None prior to admission, initial consultation Dr. Erickson
Impression:
Presented 11/10/2024 with bilateral lower extremity edema, abdominal distention and nausea/heartburn x 2 to 3 weeks
Acute heart failure with reduced ejection fraction, proBNP
Diffuse adenopathy
status post IR biopsy of left inguinal lymph node
Cardiomyopathy, EF 10%, unclear etiology
Moderate mitral regurgitation
Pulmonary hypertension
Acute renal insufficiency
Hepatomegaly
Pleural effusion
Hyperkalemia, resolved
Elevated CRP
Concern for Castleman's disease
Tobacco abuse
Daily alcohol use
History of [place] Spotted Fever
Asthma
Echo 11/11/2024: EF 10% with severe global hypokinesis. Moderately dilated left ventricle. Mild concentric LVH. Stage III DD. Moderate MR, mild to moderate TR, PAP 35 to 40 mmHg
Plan:
-Presented 11/10/2024 with bilateral lower extremity edema, SOB, abdominal distention and nausea/heartburn x 2 to 3 weeks
-New diagnosis of Cardiomyopathy with cardiomegaly of unclear etiology on echo 11/11/2024
-Acute heart failure with reduced ejection fraction, proBNP 5180
-Hold lasix with worsening cr 1.3 on admission, bumped to 1.7 (11/15)
-Cont to monitor wts and lytes. Wt down 20 lbs
-Cont GDMT: Toprol 25 mg started 11/12/2024. BP does not allow for further up titration
-Acute renal failure currently precludes ACEI/ARB at this time
-Pt can not likely afford Farxiga as he has no insurance
-Plan for right and left cardiac cath likely FridayNov 16 if creatinine allows however if creatinine remains elevated will need to push catheterization off. Can give gentle fluid bolus 500 cc post catheterization to help with kidneys per
nephrology
SHANELL with creatinine bumped to 1.7; diuretics on hold
Nephrology has been consulted and feels SHANELL likely secondary to contrast 11/10/2024 and diuresis.
Continue to hold Lasix
Checking Fena , U PCR UA
Continue to avoid nephrotoxins
-Echo showed moderate mitral regurgitation and pulmonary hypertension. Continue to follow with diuresis and medical therapy
-Pleural effusion on CT of chest noted. Hopefully will improves with IV diuresis
-Diffuse adenopathy may be reactive secondary to eczema however, patient being evaluated by heme-onc for concern of Castleman's disease with low-grade lymphoma.
-Patient for IR guided biopsy of left inguinal lymph node 11/15 with results pending and eventual outpatient PET scan
-Oncology following
-Daily alcohol use: MSAS protocol.
-Discussed importance of abstinence from alcohol given newly diagnosed cardiomyopathy
-Tobacco abuse
-Discussed importance of smoking cessation
Plan discussed with patient, nursing, nephrology and hospitalist
[facility] 11/12/2024:
Patient is a 49-year-old male with past medical history significant for asthma and Shabbona spotted fever who presents to emergency department with complaints of abdominal distention x 2 to 3 weeks associated with nausea and heartburn as well
as new lower extremity edema into scrotum and dyspnea on exertion. Patient was seen by family doctor and recently placed on steroids with temporary improvement of symptoms. He was placed on antibiotics for sore throat 3 days prior to admission. P
patient's family doctor checked BNP and D-dimer which were both elevated prompting him to come to emergency department. Lower extremity venous Doppler showed no evidence of DVT bilaterally. There was prominent bilateral inguinal lymph nodes noted.
CT of chest abdomen pelvis was performed which was negative for PE, aortic dissection or aneurysm. There was evidence of cardiomegaly. No pericardial effusion. There was moderate right and small left pleural effusion. There was mild
hepatomegaly and ascites. There was mild hilar, axillary, external iliac inguinal adenopathy. Troponins were negative. EKG showed sinus tachycardia with nonspecific T wave abnormality in lateral leads. Patient underwent echocardiogram which
showed reduced ejection fraction of 10% prompting cardiology consult. Patient was started on IV Lasix first dose given 11/11/2024.
Progress Note - Refining Machine Operator
Subjective
Date of Service: November 15, 2024
Patient seen and examined. Patient resting comfortably in bed. Notes improved edema but still has cough that is somewhat dry but feels like he needs to bring stuff up.
Objective
Labs:
11/15/24 06:46
11/15/24 06:46
Labs
Hgb 15.4 g/dL (13.0-18.0) 11/15/24 06:46
Hct 46.4 % (39.0-52.0) 11/15/24 06:46
Plt Count 199 10^3/uL (130-400) 11/15/24 06:46
PT 14.8 Sec (11.4-14.6) H 11/10/24 21:44
INR 1.11 11/10/24 21:44
APTT 27.5 Sec (23.4-35.0) 11/10/24 21:44
Sodium 136 mmol/L (135-145) 11/15/24 06:46
Potassium 4.8 mmol/L (3.5-5.1) 11/15/24 06:46
BUN 26 mg/dl (9-20) H 11/15/24 06:46
Creatinine 1.7 mg/dL (0.7-1.3) H 11/15/24 06:46
Glucose 90 mg/dl (70-99) 11/15/24 06:46
Vital Signs and I&O:
Vital Signs
Temp Pulse Resp BP Pulse Ox
98.5 F 86 16 97/73 95
11/15/24 15:08 11/15/24 15:20 11/15/24 15:20 11/15/24 15:20 11/15/24 15:12
Vital Signs
Temp Pulse Resp BP Pulse Ox
98.5 F 86 16 97/73 95
11/15/24 15:08 11/15/24 15:20 11/15/24 15:20 11/15/24 15:20 11/15/24 15:12
Intake & Output
11/13/24 11/14/24 11/15/24 11/16/24
06:59 06:59 06:59 06:59
Intake Total 480 / 480 1200 / 1200
Balance 480 / 480 1200 / 1200
Physical Exam
Physical Exam
GEN: No distress, awake, Ox3, sitting up in bed
HEENT: supple, anicteric, mmm
LUNGS: Coarse breath sounds improved with cough, absent breath sounds at right base, few scattered wheezes
CV: Reg, S1/S2, 1/6 syst murmur, no rub or gallop
ABD: soft, BS+, NT/ND
EXT: Trace bilateral lower extremity edema, no clubbing or cyanosis
NEURO: Gross non-focal
SKIN: Generalized erythema diffusely with eczema skin changes, superficial excoriations
[2024-11-15 16:33] LABS: Urine Albumin Trace (Neg - Trace); Urine Bilirubin Negative (Negative); Urine Character Clear (Clear); Urine Color Amber; Urine Glucose Negative (Negative); Urine Ketone 1+ (Negative); Urine Leukocyte Trace (Negative); Urine Nitrite Negative (Negative); Urine Occult Blood Negative (Negative); Urine Specific Gravity 1.025 (<1.030); Urine Urobilinogen Negative (Neg - 1+)
[2024-11-15 16:59] LABS: Urine Bacteria Few (Negative); Urine Red Blood Cell 0-2 /HPF (0-2); Urine Squamous Cell 0-2 /LPF (Few)
[2024-11-15] MEDS: TOPROL XL 12.5 MG PO (17:22)
[2024-11-15] MEDS: ADVAIR HFA 115/21 MCG INHALER 2 PUFF INH (19:15)
[2024-11-15] MEDS: MELATONIN 5 MG PO (21:52)
[2024-11-16] VITALS (14 sets, daily range): BP systolic 91–106; BP diastolic 63–77; BMI 29.7
[2024-11-16] MEDS: TYLENOL 650 MG PO ×2 (00:44→17:23)
--- NOTE | 2024-11-16 08:13 | W.PN.ID1 ---
Date of Service
Date of Service: November 16, 2024
Today's Communication
Sign off
Assessment / Plan
Generalized edema
Skin rash
Hx eczema
Lymphadenopathy
Suspected alpha gal syndrome
Hx RMSF
Recommendations:
At present, no immediately identifiable infectious process.
Would continue to monitor off antibiotics.
Workup for profound cardiomyopathy ongoing.
Little more to offer from a Infectious Disease standpoint.
Will see again at your request.
����������������������������������������������������������
Chief Complaint
-: Other (Edema)
Subjective / Review of Systems
Review of Systems: No Fever and No Chills
Vital Signs / Physical Exam
Vital Signs
Vital Signs
Temp Pulse Resp BP Pulse Ox
99.1 F 85 20 95/68 98
11/16/24 07:09 11/16/24 07:09 11/16/24 07:09 11/16/24 07:09 11/16/24 07:09
Physical Exam
Constitutional: Comfortable and Non-toxic
Head: Normocephalic
Eyes: No Conjunctival Hemorrhage and Sclera Anicteric
Cardiovascular: Peripheral Edema
Pulmonary: Non Labored
Gastrointestinal: Non Distended
Neurological: Awake and Alert
Psychological: Calm
Objective Data
Lab Data
ESR 4 mm/hour (0-20) 11/11/24 02:28
PT 14.8 Sec (11.4-14.6) H 11/10/24 21:44
INR 1.11 11/10/24 21:44
APTT 27.5 Sec (23.4-35.0) 11/10/24 21:44
Estimated Creat Clear 57 ml/min 11/15/24 06:46
Total Bilirubin 1.2 mg/dl (0.2-1.3) 11/15/24 06:46
AST 27 U/L (17-59) 11/15/24 06:46
ALT 32 U/L (0-50) 11/15/24 06:46
Alkaline Phosphatase 66 U/L (38-126) 11/15/24 06:46
C-Reactive Protein 10.90 mg/L (0.0-10.00) H 11/11/24 02:27
Most recent labs reviewed.
Imaging:
11/11/2024 ECHO (TTE): Moderately dilated LV. Severely reduced LV systolic function, with EF approximately 10%. Severe global left ventricular hypokinesis. Moderate mitral regurgitation. Dilated pulmonary artery. IVC is dilated and does not
collapse. No intracardiac mass or thrombus formation seen. Please see full dictation for additional detail.
11/10/2024 CT chest/abdomen/pelvis: Mild to moderate cardiac enlargement. No pulmonary embolism noted. Moderate and mild left pleural effusion. Adjacent pulmonary parenchymal consolidation (right greater than left) which may be atelectasis versus
pneumonia. Mild hepatomegaly noted. Mild ascites. Mild hilar axillary external iliac and inguinal adenopathy.
[2024-11-16 08:28] LABS: Hematocrit 42.7 % (39.0-52.0); Hemoglobin 14.5 g/dL (13.0-18.0); Mean Corpuscular Hgb 31.5 pg (27.0-31.0); Mean Corpuscular Volume 92.6 fL (80.0-94.0); Mean Platelet Volume 11.5 fL (7.4-10.4); Platelet Count 159 10^3/uL (130-400); Red Blood Cell Count 4.61 10^6/uL (4.70-6.10); White Blood Cell Count 7.9 10^3/uL (4.8-10.8)
[2024-11-16 08:36] LABS: ALT (SGPT) 28 U/L (0-50); AST (SGOT) 22 U/L (17-59); Albumin 3.2 g/dl (3.5-5.0); Alkaline Phosphatase 85 U/L (38-126); Blood Urea Nitrogen 23 mg/dl (9-20); Calcium 8.2 mg/dl (8.4-10.2); Carbon Dioxide 30 mmol/L (22-30); Chloride 99 mmol/L (98-107); Estimated Creatinine Clearance 75 ml/min; Glucose 89 mg/dl (70-99); Potassium 3.9 mmol/L (3.5-5.1); Sodium 134 mmol/L (135-145); Total Bilirubin 1.1 mg/dl (0.2-1.3); Total Protein 5.5 g/dl (6.3-8.2); eGFR > 60.00
[2024-11-16] MEDS: HEPARIN SC ×2 (08:45→16:22)
--- NOTE | 2024-11-16 09:31 | W.PN.HOSP.TC ---
Today's Communication/Plan
-
Check Mg level
for Right & Left HC , he is NPO
Low Bp, received BB last night
NSVT, will d/w cardiology
dc ETOH protocol
Assessment / Plan
Assessment / Plan
Physical Exam
General: Other (49y M in no acute distress.)
HEENT: Other (moist MM.
Respiratory: Clear; No Wheezes, Rales or Rhonchi
Cardiac: S1/S2
GI: Soft, Non Tender, Non Distended and Normal Bowel Sounds
Musculoskeletal: No Clubbing, No Cyanosis
Skin: Other (dry skin, Generalized erythema diffusely with eczema skin changes / superficial excoriations.)
Neuro: AO x 3 and Nonfocal/grossly intact
Psych: calm, pleasant
A/P: Patient is a 49y M with PMH significant for asthma and prior RMSF infection who presents to ED complaining of abdominal distention, increased edema, etc.
#Acute HFrEF
�Unclear etiology, recent viral infection RMSF, could be related. Hx of ETOH intake
�EF 10%, appears to have non ischemic pattern
�Held furosemide 40 mg IV twice daily due to rising Scr and low BP
� Started on beta-shelly, reduced to 12.5 mg XL dose
� Does not have insurance, [employer]sto and [employer] costs are high
� Monitor blood pressure
�ICD placement as per cardiology
� Right and left heart cath tentatively on Friday
�Educated on alcohol and tobacco cessation
# NSVT
c/w BB
Check Mg level
will d/w cardiology
Ascites / Edema
Pleural effusion
-2/2 to CHF
-improved
#SHANELL
Improved, creatinine is lower to 1.3
Seems c/w contrast induced AIN with ongoing heart failure, pre-renal. Low urine sodium.
Recent contrast study done on 11/10
- avoid nephrotoxic including diuretics
-. Avoid hypotension
Appreciate nephrology help
Mild, Diffuse Adenopathy
� May be reactive secondary to eczema, hematology wants to rule out multicentric Castleman's disease as well as low-grade lymphoma.
� IR consulted for biopsy of the left inguinal lymph node�done on 11/15
� Hematology following
Alcohol use
No signs of alcohol withdrawal, dc MSAS protocol
�Cessation advised, he verbalized understanding.
Tobacco abuse
� Smoking cessation advised
Alpha-gal
- Recent lab assay indicated intermediate sensitivity macy beef / ramos in particular.
- Would recommend patient avoid these proteins and follow for improvement in his skin / joint changes, edema, etc.
DVT Prophylaxis: HSQ
Code Status: Full
Total time spent to see the patient, examine the patient, review data and lab results, discuss the treatment plan with patient, nursing staff around 55 minutes
Anticipated Discharge: 24 - 48 hours
Subjective/Interval History
-
Date of Service: November 16, 2024
No chest pain or sob, denies exertional sob but states he was not walking long distances
Low BP but not dizzy
Objective Data
-
Labs:
Laboratory Results
11/16/24
07:21
WBC 7.9
Hgb 14.5
Hct 42.7
Plt Count 159 D
Sodium 134 L
Potassium 3.9
Chloride 99
Carbon Dioxide 30
BUN 23 H
Creatinine 1.3
Glucose 89
Calcium 8.2 L
Total Bilirubin 1.1
AST 22
ALT 28
Alkaline Phosphatase 85
Vital Signs:
Vital Signs
Temp Pulse Resp BP Pulse Ox
99.1 F 85 20 95/68 98
11/16/24 07:09 11/16/24 07:09 11/16/24 07:09 11/16/24 07:09 11/16/24 07:09
I&O
11/15/24 11/16/24 11/17/24
06:59 06:59 06:59
Intake Total 1200 / 1200 600 / 600
Balance 1200 / 1200 600 / 600
--- NOTE | 2024-11-16 10:03 | ITS.CL.CATH ---
Flag Signalman - Catheterization
Cardiac Catheterization
Procedure Report:
RIGHT AND LEFT HEART STUDY
Date of Procedure: November 16, 2024
Referring: Dr. Dedrick Erickson
PROCEDURES:
1. Right heart catheterization
2. Left heart catheterization with coronary angiography
INDICATION: Dilated cardiomyopathy
ACCESS: Right radial artery, 6 Sammarinese sheath in right common femoral vein, 6 Sammarinese sheath
HEMODYNAMICS : mmHg
RA (m) : 18
RV (s/d) : 38/12, 21
PA (s/d, m) : 43/27, 32
PCWP (m) : 30
AO (s/d, m) : 87/71, 76
LV (s/d) : 82/18
LVEDP : 31
Estimated Cinthya Cardiac Output: 4.99 L / min and Cardiac Index: 2.25 L/ min / m-2
Systemic vascular resistance: 11.6 Wood units or 929 [id number](-5)
Pulmonary vascular resistance: 2.80 Wood units or 224 [id number](-5)
CORONARY FINDINGS :
Dominance: Right
LEFT MAIN: Normal
LEFT ANTERIOR DESCENDING: Normal
CIRCUMFLEX: Normal
RIGHT CORONARY ARTERY: Normal
VENTRICULOGRAPHY: Not done
RADIATION SUMMARY: Fluoro Time (min): 4.4, Dose (mGy): 371.6, DAP (Gy.cm2) : 31.7
CONCLUSIONS
1. Elevated right and left ventricular filling pressures
2. Normal coronary arteries
RECOMMENDATIONS
1. Cessation of all alcohol has been recommended
2. Continue IV diuresis with persistently elevated right and left ventricular filling pressures. Hemodynamics will be reviewed with nephrology
Copy to: Dr. Dedrick Erickson
--- NOTE | 2024-11-16 10:30 | PTCARENOTE ---
received from lab specialist post cardiac cath in bed. vitals noted, right wrist with R band intact- see post angiography flowsheet. Continuos POX placed on right hand, with POX 98%- right groin with gaze and tegaderm dressing dry and intact. patient
aware of post cath restrictions and voiced understanding. call tim in reach. plan of care on going.
[2024-11-16] MEDS: VITAMIN B1 100 MG PO ×2 (12:43→21:00)
[2024-11-16] MEDS: PROTONIX 40 MG PO (12:43)
[2024-11-16] MEDS: FOLVITE 1 MG PO (12:43)
--- NOTE | 2024-11-16 15:07 | W.PN.NEPH.PH ---
Today's Communication / Plan
-
lasix IV
Assessment/Plan
-
IMP:
SHANELL
Acute HFrEF- 10%,moderate mitral regurgitation and pulmonary hypertension
Ascites / Edema
Pleural effusion
Mild, Diffuse Adenopathy
Alcohol use
Tobacco abuse
Alpha-gal syndrome
eczema
Hepatomegaly
Plan:
A/w edema, new CHF EF 10%
SHANELL likely from contrast on 11/10+diuresis- cr on admit 1.3 peak 1.7, now down to 1.3
bland UA and low Fena , has underlying cardiorenal physiology
CT on admit neg for hydro
s/p LN biopsy 11/15
s/p LHC today showed no CAD but elevated filling pressures, PCWP 32
BP soft on low dose BB, low dose ACEI started per primary
would start diuretics from tomorrow since cath today
mild hyponatremia-hypervolemic, maintain FR 48 ounces/day
avoid nephrotoxins
labs in am
d/w pt and nursing
-
-
Date of Service: November 16, 2024
CC / HPI / ROS
-
Chief Complaint:
SHANELL
History of Present Illness:
cr is better today at 1.3
BP remain soft
wt decreasing slowly
sodium 134
Review of Systems:
no cp or sob
feels well
Labs
-
Labs:
WBC 7.9 10^3/uL (4.8-10.8) 11/16/24 07:21
RBC 4.61 10^6/uL (4.70-6.10) L 11/16/24 07:21
Hgb 14.5 g/dL (13.0-18.0) 11/16/24 07:21
Hct 42.7 % (39.0-52.0) 11/16/24 07:21
Plt Count 159 10^3/uL (130-400) D 11/16/24 07:21
Sodium 134 mmol/L (135-145) L 11/16/24 07:21
Potassium 3.9 mmol/L (3.5-5.1) 11/16/24 07:21
Chloride 99 mmol/L (98-107) 11/16/24 07:21
Carbon Dioxide 30 mmol/L (22-30) 11/16/24 07:21
BUN 23 mg/dl (9-20) H 11/16/24 07:21
Creatinine 1.3 mg/dL (0.7-1.3) 11/16/24 07:21
eGFR > 60.00 11/16/24 07:21
Glucose 89 mg/dl (70-99) 11/16/24 07:21
Calcium 8.2 mg/dl (8.4-10.2) L 11/16/24 07:21
Roi-N-Soacqotiuur Pept 5180 pg/ml 11/12/24 07:04
Albumin 3.2 g/dl (3.5-5.0) L 11/16/24 07:21
Physical Exam
-
Vital Signs:
Vital Signs
Temp Pulse Resp BP Pulse Ox
98.6 F 105 20 103/72 95
11/16/24 14:00 11/16/24 14:00 11/16/24 14:00 11/16/24 14:00 11/16/24 14:00
Cardiovascular:: Regular rate and rhythm
Respiratory:: Bilateral: CTA
Lung Excursion:: Normal
Abdomen:: Nontender and Soft
Extremity Edema:: +1: Bilateral: (trace)
Stanton Catheter: No
--- NOTE | 2024-11-16 16:39 | CM ---
Pt for R and L heart cath today.
As per he may need disability.
[facility] him to request paper to assist in hospital bill and follow up coverage.
Pt said he has a PCP he will follow up with at hi.
PLAN Home no needs
[2024-11-16] MEDS: ZOFRAN 4 MG IV (17:28)
[2024-11-16] MEDS: FLUSH (NSS) 2 FLUSH IV (17:28)
[2024-11-16] MEDS: TOPROL XL 12.5 MG PO (18:06)
[2024-11-16] MEDS: ADVAIR HFA 115/21 MCG INHALER 2 PUFF INH (19:16)
[2024-11-16] MEDS: MELATONIN 5 MG PO (21:06)
[2024-11-16] MEDS: ZESTRIL 2.5 MG PO (23:40)
[2024-11-16] MEDS: HEPARIN 5000 UNITS SC (23:40)
[2024-11-17] VITALS (7 sets, daily range): BP systolic 83–114; BP diastolic 51–69; BMI 29.9
[2024-11-17 06:46] LABS: Hematocrit 43.8 % (39.0-52.0); Hemoglobin 14.4 g/dL (13.0-18.0); Mean Corp Hgb Conc. 32.9 g/dL (33.0-37.0); Mean Corpuscular Volume 94.4 fL (80.0-94.0); Mean Platelet Volume 10.9 fL (7.4-10.4); Platelet Count 151 10^3/uL (130-400); Red Blood Cell Count 4.64 10^6/uL (4.70-6.10); Red Cell Dist. Width 14.1 % (11.5-14.5); White Blood Cell Count 7.2 10^3/uL (4.8-10.8)
[2024-11-17 06:59] LABS: ALT (SGPT) 27 U/L (0-50); AST (SGOT) 22 U/L (17-59); Albumin 3.2 g/dl (3.5-5.0); Alkaline Phosphatase 88 U/L (38-126); Blood Urea Nitrogen 21 mg/dl (9-20); Calcium 8.1 mg/dl (8.4-10.2); Carbon Dioxide 26 mmol/L (22-30); Chloride 100 mmol/L (98-107); Estimated Creatinine Clearance 97 ml/min; Glucose 108 mg/dl (70-99); Magnesium 2.1 mg/dl (1.6-2.3); Potassium 3.7 mmol/L (3.5-5.1); Sodium 133 mmol/L (135-145); Total Bilirubin 0.4 mg/dl (0.2-1.3); Total Protein 5.6 g/dl (6.3-8.2); eGFR > 60.00
--- NOTE | 2024-11-17 09:42 | W.PN.HOSP.TC ---
Today's Communication/Plan
-
Likely dc in am if no further cardiac procedure.
Assessment / Plan
Assessment / Plan
Physical Exam
General: not in distress.
HEENT: Other (moist MM.
Respiratory: No wheezes.
Cardiac: S1/S2
GI: Soft, Non Tender, Non Distended and Normal Bowel Sounds
Musculoskeletal: No Clubbing, No Cyanosis
Skin: Other (dry skin, Generalized erythema diffusely with eczema skin changes / superficial excoriations.)
Neuro: AO x 3 and Nonfocal/grossly intact
Psych: calm, pleasant
A/P: Patient is a 49y M with PMH significant for asthma and prior RMSF infection who presents to ED complaining of abdominal distention, increased edema, etc.
#Acute HFrEF
�Unclear etiology, recent viral infection RMSF, could be related. Hx of ETOH intake
Echo showed LVEF 10 %, severe global hypokinesia.
Right and left heart catheterization showed normal coronaries, Elevated R&L ventricular filling pressures.
� Started on beta-shelly, reduced to 12.5 mg XL dose, added low dose SHERIDAN as BP. Limitation to push GDMT due to low blood pressure & financial cost.
� Monitored blood pressure
�ICD placement as per cardiology
�Educated on alcohol and tobacco cessation, he verbalized understanding.
- Started on Lasix again
# NSVT
c/w BB
Normal magnesium level.
#SHANELL
Improved, creatinine is lower to 1.0
SHANELL Seems c/w contrast induced AIN with ongoing heart failure, pre-renal. Low urine sodium.
Recent contrast study done on 11/10
- avoid nephrotoxic agents. Ok to do Lasix with improvement.
Appreciate nephrology help
Mild, Diffuse Adenopathy
� May be reactive secondary to eczema, hematology wants to rule out multicentric Castleman's disease as well as low-grade lymphoma.
� IR consulted for biopsy of the left inguinal lymph node�done on 12/23
� Hematology following
Alcohol use
No signs of alcohol withdrawal, dc MSAS protocol
�Cessation advised, he verbalized understanding.
Tobacco abuse
� Smoking cessation advised
Alpha-gal
- Recent lab assay indicated intermediate sensitivity macy beef / ramos in particular.
- Would recommend patient avoid these proteins and follow for improvement in his skin / joint changes, edema, etc.
DVT Prophylaxis: HSQ
Code Status: Full
Total time spent to see the patient, examine the patient, review data and lab results, discuss the treatment plan with patient, his , nursing staff around 55 minutes
Anticipated Discharge: Within 24 hours
Subjective/Interval History
-
Date of Service: November 17, 2024
No chest pain
No sob
Objective Data
-
Labs:
Laboratory Results
11/17/24
06:09
WBC 7.2
Hgb 14.4
Hct 43.8
Plt Count 151
Sodium 133 L
Potassium 3.7
Chloride 100
Carbon Dioxide 26
BUN 21 H
Creatinine 1.0
Glucose 108 H
Calcium 8.1 L
Total Bilirubin 0.4
AST 22
ALT 27
Alkaline Phosphatase 88
Vital Signs:
Vital Signs
Temp Pulse Resp BP Pulse Ox
98.7 F 77 18 105/63 94
11/17/24 07:15 11/17/24 07:50 11/17/24 07:15 11/17/24 07:50 11/17/24 07:15
I&O
11/16/24 11/17/24 11/18/24
06:59 06:59 06:59
Intake Total 600 / 600 840 / 840
Balance 600 / 600 840 / 840
[2024-11-17] MEDS: PROTONIX 40 MG PO (09:53)
[2024-11-17] MEDS: FLUSH (NSS) 2 FLUSH IV (09:54)
[2024-11-17] MEDS: FOLVITE 1 MG PO (09:54)
[2024-11-17] MEDS: HEPARIN 5000 UNITS SC ×2 (09:54→16:36)
[2024-11-17] MEDS: LASIX 40 MG IV (09:54)
[2024-11-17] MEDS: VITAMIN B1 100 MG PO ×2 (09:54→21:10)
--- NOTE | 2024-11-17 15:00 | W.PN.CARDCBS ---
Today's Communication / Plan
-
IV diuresis
Intake output, daily weight, replete electrolytes
Uptitration goal-directed medical therapy as tolerated
Impression / Plan
-
.
Family Physician: Jessica Sanders
Knifeman: None prior to admission, initial consultation Dr. Erickson
Impression:
Presented 11/10/2024 with bilateral lower extremity edema, abdominal distention and nausea/heartburn x 2 to 3 weeks
Acute heart failure with reduced ejection fraction, proBNP
Diffuse adenopathy
status post IR biopsy of left inguinal lymph node
Cardiomyopathy, EF 10%, likely nonischemic; nonobstructive CAD on left heart catheterization 10/2024
Moderate mitral regurgitation
Pulmonary hypertension
Acute renal insufficiency
Hepatomegaly
Pleural effusion
Hyperkalemia, resolved
Elevated CRP
Concern for Castleman's disease
Tobacco abuse
Daily alcohol use
History of [place] Spotted Fever
Asthma
Echo 11/11/2024: EF 10% with severe global hypokinesis. Moderately dilated left ventricle. Mild concentric LVH. Stage III DD. Moderate MR, mild to moderate TR, PAP 35 to 40 mmHg
LHC/RHC 11/16/2024: Elevated right/left ventricular filling pressures, normal coronary arteries; recommendation cease all alcohol, IV diuresis for elevated pressures.
Plan:
- Following closely with nephrology, continue IV diuresis for elevated left/right filling pressures; still noting abdominal distention (improved breathing) may require further IV diuresis
- Strict intake and output, daily weight, monitor renal function
� Currently on beta-shelly, SHERIDAN inhibitor; consider up titration of goal-directed medical therapy as heart rate/blood pressure will allow. May benefit from Aldactone plus or minus SGLT2; would request assistance by case management for evaluation
and cost for these medications
� Replete electrolytes
�Monitor on telemetry
HPI 11/12/2024:
Patient is a 49-year-old male with past medical history significant for asthma and [place] spotted fever who presents to emergency department with complaints of abdominal distention x 2 to 3 weeks associated with nausea and heartburn as well
as new lower extremity edema into scrotum and dyspnea on exertion. Patient was seen by family doctor and recently placed on steroids with temporary improvement of symptoms. He was placed on antibiotics for sore throat 3 days prior to admission. P
patient's family doctor checked BNP and D-dimer which were both elevated prompting him to come to emergency department. Lower extremity venous Doppler showed no evidence of DVT bilaterally. There was prominent bilateral inguinal lymph nodes noted.
CT of chest abdomen pelvis was performed which was negative for PE, aortic dissection or aneurysm. There was evidence of cardiomegaly. No pericardial effusion. There was moderate right and small left pleural effusion. There was mild
hepatomegaly and ascites. There was mild hilar, axillary, external iliac inguinal adenopathy. Troponins were negative. EKG showed sinus tachycardia with nonspecific T wave abnormality in lateral leads. Patient underwent echocardiogram which
showed reduced ejection fraction of 10% prompting cardiology consult. Patient was started on IV Lasix first dose given 11/11/2024.
Progress Note - Knifeman
Subjective
Date of Service: November 17, 2024
Patient seen and examined. No acute events overnight. Patient walking around room without complaint. He notes significant improvement in breathing still no significant abdominal distention and bloating. Patient denies any chest pain,
palpitations, or weakness. Telemetry demonstrates sinus rhythm/sinus tach. Roughly 10 kg weight loss since admission
Objective
Labs:
11/17/24 06:09
11/17/24 06:09
Labs
Hgb 14.4 g/dL (13.0-18.0) 11/17/24 06:09
Hct 43.8 % (39.0-52.0) 11/17/24 06:09
Plt Count 151 10^3/uL (130-400) 11/17/24 06:09
PT 14.8 Sec (11.4-14.6) H 11/10/24 21:44
INR 1.11 11/10/24 21:44
APTT 27.5 Sec (23.4-35.0) 11/10/24 21:44
Sodium 133 mmol/L (135-145) L 11/17/24 06:09
Potassium 3.7 mmol/L (3.5-5.1) 11/17/24 06:09
BUN 21 mg/dl (9-20) H 11/17/24 06:09
Creatinine 1.0 mg/dL (0.7-1.3) 11/17/24 06:09
Glucose 108 mg/dl (70-99) H 11/17/24 06:09
Vital Signs and I&O:
Vital Signs
Temp Pulse Resp BP Pulse Ox
98.3 F 98 18 100/69 98
11/17/24 11:40 11/17/24 11:40 11/17/24 11:40 11/17/24 11:40 11/17/24 11:40
Vital Signs
Temp Pulse Resp BP Pulse Ox
98.3 F 98 18 100/69 98
11/17/24 11:40 11/17/24 11:40 11/17/24 11:40 11/17/24 11:40 11/17/24 11:40
Intake & Output
11/15/24 11/16/24 11/17/24 11/18/24
06:59 06:59 06:59 06:59
Intake Total 1200 / 1200 600 / 600 840 / 840
Balance 1200 / 1200 600 / 600 840 / 840
Physical Exam
Physical Exam
GEN: No distress, awake, Ox3, sitting up in bed
HEENT: supple, anicteric, mmm
LUNGS: Faint bibasilar crackles, no audible wheeze
CV: Reg, S1/S2, 1/6 syst murmur, no rub or gallop
ABD: soft, BS+, NT, mild distention
EXT: Trace bilateral lower extremity edema, no clubbing or cyanosis
NEURO: Gross non-focal
SKIN: Generalized erythema diffusely with eczema skin changes, superficial excoriations
--- NOTE | 2024-11-17 15:17 | W.PN.NEPH.PH ---
Today's Communication / Plan
-
cont lasix
Assessment/Plan
-
IMP:
SHANELL
Acute HFrEF- 10%,moderate mitral regurgitation and pulmonary hypertension
Ascites / Edema
Pleural effusion
Mild, Diffuse Adenopathy
Alcohol use
Tobacco abuse
Alpha-gal syndrome
eczema
Hepatomegaly
Plan:
A/w edema, new CHF EF 10%
SHANELL likely from contrast on 11/10+diuresis
monitor cr post contrast again 11/16, so far stable at 1
bland UA and low Fena , has underlying cardiorenal physiology
CT on admit neg for hydro
s/p LN biopsy 11/15
s/p LHC today showed no CAD but elevated filling pressures, PCWP 32
BP soft on low dose BB, low dose ACEI started 11/16 per primary
would cont diuretics
mild hyponatremia-hypervolemic, maintain FR 48 ounces/day
avoid nephrotoxins
labs in am
d/w pt
d/c plan
-
-
Date of Service: November 17, 2024
CC / HPI / ROS
-
Chief Complaint:
SHANELL
History of Present Illness:
cr is better today at 1
BP remain soft
wt decreasing slowly
sodium 133
Review of Systems:
no cp or sob
feels well
Labs
-
Labs:
WBC 7.2 10^3/uL (4.8-10.8) 11/17/24 06:09
RBC 4.64 10^6/uL (4.70-6.10) L 11/17/24 06:09
Hgb 14.4 g/dL (13.0-18.0) 11/17/24 06:09
Hct 43.8 % (39.0-52.0) 11/17/24 06:09
Plt Count 151 10^3/uL (130-400) 11/17/24 06:09
Sodium 133 mmol/L (135-145) L 11/17/24 06:09
Potassium 3.7 mmol/L (3.5-5.1) 11/17/24 06:09
Chloride 100 mmol/L (98-107) 11/17/24 06:09
Carbon Dioxide 26 mmol/L (22-30) 11/17/24 06:09
BUN 21 mg/dl (9-20) H 11/17/24 06:09
Creatinine 1.0 mg/dL (0.7-1.3) 11/17/24 06:09
eGFR > 60.00 11/17/24 06:09
Glucose 108 mg/dl (70-99) H 11/17/24 06:09
Calcium 8.1 mg/dl (8.4-10.2) L 11/17/24 06:09
Vph-H-Akneqmemrxh Pept 5180 pg/ml 11/12/24 07:04
Albumin 3.2 g/dl (3.5-5.0) L 11/17/24 06:09
Physical Exam
-
Vital Signs:
Vital Signs
Temp Pulse Resp BP Pulse Ox
98.3 F 98 18 100/69 98
11/17/24 11:40 11/17/24 11:40 11/17/24 11:40 11/17/24 11:40 11/17/24 11:40
Cardiovascular:: Regular rate and rhythm
Respiratory:: Bilateral: CTA
Lung Excursion:: Normal
Abdomen:: Nontender and Soft
Extremity Edema:: +1: Bilateral: (trace)
Stanton Catheter: No
[2024-11-17] MEDS: KLOR-CON 20 MEQ PO (16:36)
[2024-11-17] MEDS: ADVAIR HFA 115/21 MCG INHALER 2 PUFF INH (17:35)
[2024-11-17] MEDS: TOPROL XL 12.5 MG PO (18:13)
[2024-11-17] MEDS: ZESTRIL 2.5 MG PO (21:10)
[2024-11-17] MEDS: MELATONIN 5 MG PO (21:10)
[2024-11-17] MEDS: TYLENOL 650 MG PO (21:14)
--- NOTE | 2024-11-17 23:30 | PTCARENOTE ---
Pt ambulating in hallway, HR 100-115 ST on the monitor. Upon return to bed, vital signs obtained, BP 88/59. Pt denies any complaints, denies dizziness/ Lightheadedness. Will continue to monitor.
[2024-11-18] MEDS: HEPARIN 5000 UNITS SC ×4 (00:02→23:44)
[2024-11-18 03:15] VITALS: BP 81/55
[2024-11-18 06:00] VITALS: BMI 29.9
[2024-11-18 07:30] VITALS: BP 110/71
[2024-11-18 09:02] LABS: Blood Urea Nitrogen 23 mg/dl (9-20); Calcium 8.1 mg/dl (8.4-10.2); Carbon Dioxide 26 mmol/L (22-30); Chloride 100 mmol/L (98-107); Estimated Creatinine Clearance 97 ml/min; Glucose 96 mg/dl (70-99); Potassium 3.7 mmol/L (3.5-5.1); Sodium 134 mmol/L (135-145); eGFR > 60.00
--- NOTE | 2024-11-18 09:13 | W.PN.HOSP.TC ---
Today's Communication/Plan
-
possible dc, pending discussion with cardiology/ nephrology
Assessment / Plan
Assessment / Plan
Physical Exam
General: not in distress.
HEENT: Other (moist MM.
Respiratory: No wheezes.
Cardiac: S1/S2
GI: Soft, Non Tender, Non Distended and Normal Bowel Sounds
Musculoskeletal: No Clubbing, No Cyanosis
Skin: Other (dry skin, Generalized erythema diffusely with eczema skin changes / superficial excoriations.)
Neuro: AO x 3 and Nonfocal/grossly intact
Psych: calm, pleasant
A/P: Patient is a 49y M with PMH significant for asthma and prior RMSF infection who presents to ED complaining of abdominal distention, increased edema, etc.
#Acute HFrEF
�Unclear etiology, recent viral infection RMSF, could be related. Hx of ETOH intake
Echo showed LVEF 10 %, severe global hypokinesia.
Right and left heart catheterization showed normal coronaries, Elevated R&L ventricular filling pressures.
� Started on beta-shelly, reduced to 12.5 mg XL dose, added low dose SHERIDAN as BP. Limitation to push GDMT due to low blood pressure & financial cost.
� Monitored blood pressure
�ICD placement as per cardiology
�Educated on alcohol and tobacco cessation, he verbalized understanding.
- Started on Lasix again
# NSVT
c/w BB
Normal magnesium level.
#SHANELL
Improved, creatinine is lower to 1.0
SHANELL Seems c/w contrast induced AIN with ongoing heart failure, pre-renal. Low urine sodium.
Recent contrast study done on 11/10
- avoid nephrotoxic agents. Ok to do Lasix with improvement.
Appreciate nephrology help
Mild, Diffuse Adenopathy
� May be reactive secondary to eczema, hematology wants to rule out multicentric Castleman's disease as well as low-grade lymphoma.
� IR consulted for biopsy of the left inguinal lymph node�done on 11/15
� Hematology following
Alcohol use
No signs of alcohol withdrawal, dc MSAS protocol
�Cessation advised, he verbalized understanding.
Tobacco abuse
� Smoking cessation advised
Alpha-gal
- Recent lab assay indicated intermediate sensitivity macy beef / ramso in particular.
- Would recommend patient avoid these proteins and follow for improvement in his skin / joint changes, edema, etc.
DVT Prophylaxis: HSQ
Code Status: Full
Total time spent to see the patient, examine the patient, review data and lab results, discuss the treatment plan with patient, his , nursing staff around 55 minutes
Anticipated Discharge: Within 24 hours
Subjective/Interval History
-
Date of Service: November 18, 2024
No chest pain
No sob
No fevers
Objective Data
-
Labs:
Laboratory Results
11/18/24
07:31
Sodium 134 L
Potassium 3.7
Chloride 100
Carbon Dioxide 26
BUN 23 H
Creatinine 1.0
Glucose 96
Calcium 8.1 L
Vital Signs:
Vital Signs
Temp Pulse Resp BP Pulse Ox
98.3 F 89 18 110/71 97
11/18/24 07:30 11/18/24 07:30 11/18/24 07:30 11/18/24 07:30 11/18/24 07:30
I&O
11/17/24 11/18/24 11/19/24
06:59 06:59 06:59
Intake Total 840 / 840 960 / 960
Balance 840 / 840 960 / 960
[2024-11-18] MEDS: PROTONIX 40 MG PO (09:18)
[2024-11-18] MEDS: FOLVITE 1 MG PO (09:19)
[2024-11-18] MEDS: VITAMIN B1 100 MG PO ×2 (09:19→21:06)
--- NOTE | 2024-11-18 09:22 | W.PN.CARDCBS ---
Addendum entered and electronically signed by Johanna Stovall DO 11/18/24 17:28:
Per case management note 11/12/2024: Farxiga $698 and Entresto $825 as per [facility] pharmacist Good RX over $300.
Addendum entered and electronically signed by Johanna Stovall DO 11/18/24 11:46:
I saw and examined the patient.
The Wool Shearing Supervisor's note was reviewed and I agree with the note.
Comment: Patient seen and examined ambulating around unit on room air with his . Offers no new complaints. Reports improved shortness of breath/abdominal distention and edema. No chest pain or pressure. Continue complain of diffuse skin itch
GEN: No distress, awake, Ox3; RA
HEENT:mmm
LUNGS: Bronchovesicular breath sounds, clear
CV: Reg, S1/S2, no murmur
ABD: soft, BS+, NT/ND
EXT: Trivial ankle edema bilaterally with varicose veins. Right radial cath site intact
NEURO: Gross non-focal
SKIN: Generalized erythema diffusely with eczema skin changes, superficial excoriations
Plan:
-Presented 11/10/2024 with bilateral lower extremity edema, SOB, abdominal distention and nausea/heartburn x 2 to 3 weeks
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
-proBNP 5180; repeat proBNP following IV diuresis
-Left heart catheterization 11/16/2024 with right dominant, normal coronary anatomy without anomalies.
-Right heart catheterization with right atrial pressure 18, PA 43/27 with a mean of 32. Pulmonary capillary wedge pressure 30. LVEDP 31.
-Worsening renal function with diuresis, creatinine today 1.7
-He has diuresed approximately 20 pounds this admission
-Continue to optimize goal-directed medical therapy which is currently been limited by lower blood pressure and now renal insufficiency in addition to financial issues as patient does not have insurance: Will change Toprol to carvedilol 3.125 mg
twice daily. Continue lisinopril 2.5 mg nightly. Will hold adding Aldactone at this time but likely start at upcoming outpatient follow-up. Unable to afford SGLT2 inhibitors or Entresto
-Transition to oral Lasix 40 mg once daily
-Review of telemetry revealed 10 beats NSVT on 1224 at 8:25 AM and brief NSVT yesterday.
-Pertinent Labs:
-11/18/2024: Creatinine 1, sodium 134. Potassium 3.7. Hemoglobin 14.4. Platelets 151,000
-11/17/2024: LFTs within normal limits. Magnesium 2.1
-11/11/2024: TSH 2.27, cardiac troponin 0.021/0.022/0.023, proBNP 5180, lipase 162, C-reactive protein elevated 10.9, ESR 4, hemoglobin A1c 5.8%, hepatitis C and HIV negative
-Tobacco and alcohol cessation strongly advised. We discussed low-salt cardiac healthy diet and fluid restriction. We reviewed heart failure monitoring
-Patient's mother reports a family history of cardiomyopathy with a cousin who required a heart transplant . They deny known familial cardiomyopathy syndrome however I have asked them to get further information. As an outpatient, consider
further workup of nonischemic cardiomyopathy with cardiac MRI plus or minus genetic testing given family history which is unclear.
-Discussed LifeVest and patient is agreeable. Case management to be notified.
-Tobacco and alcohol cessation strongly advised
SHANELL with creatinine bumped to 1.7 on 11/15/2024 which is improved to 1
-Appreciate nephrology input; SHANELL likely secondary to contrast 11/10/2024 and diuresis.
-Echo showed moderate mitral regurgitation and pulmonary hypertension.
-Continue to follow with diuresis and medical therapy
-Plan for repeat 2D echocardiogram in 3 months on goal-directed medical therapy
-Diffuse adenopathy may be reactive secondary to eczema however, patient being evaluated by heme-onc for concern of Castleman's disease with low-grade lymphoma.
-Lower extremity Doppler 11/10/2024: Prominent bilateral inguinal lymph nodes. No evidence of DVT.
-CT abdomen pelvis 11/10/2024: Minimal ascites. Minor edema in the presacral region. Prominent bilateral obturator lymph nodes and iliac adenopathy. Mild inguinal adenopathy left greater than right. No compression of IVC or iliac vessels. No
pulmonary embolism. Mild to moderate cardiac enlargement. No pericardial effusion. No aortic aneurysm or dissection. Mild hepatomegaly. Adrenal glands without mass. Pancreas unremarkable. Moderate right pleural effusion. Mild axillary and
hilar adenopathy.
-S/P IR guided biopsy of left inguinal lymph node 11/15 with results pending and eventual outpatient PET scan
-Discussed discharge plan with oncology who will arrange outpatient follow-up
-Daily alcohol use: MSAS protocol.
-Discussed importance of abstinence from alcohol given newly diagnosed cardiomyopathy
-Tobacco abuse
-Discussed importance of smoking cessation
Stable for discharge following evaluation for LifeVest
-Discussed with hospitalist
-All patient and family questions answered
Original Note:
Today's Communication / Plan
-
Transitioned to PO lasix 11/18.
Creat stable.
Continue Toprol 12.5mg daily and lisinopril 2.5mg daily
Replete K
Consideration for LifeVest at d/c
Follow up has been arranged
Impression / Plan
-
PCP: Jessica Sanders
Gaming Floor Supervisor: None prior to admission, initial consultation Dr. Erickson
Impression:
Presented w/ LE edema, abdominal distention, and nausea/heartburn x 2 to 3 weeks
Acute HFrEF, proBNP 5180
Diffuse adenopathy
status post IR biopsy of left inguinal lymph node
Nonischemic cardiomyopathy, EF 10%
Nonobstructive CAD on [facility] 11/16/2024
NSVT on [facility] 11/16/2024
Moderate mitral regurgitation
Pulmonary hypertension
SHANELL, improved
Hepatomegaly
Pleural effusion
Hyperkalemia, resolved
Elevated CRP
Concern for Castleman's disease
Tobacco abuse
Daily alcohol use
History of [place] Spotted Fever
Asthma
Echo 11/11/2024: EF 10% with severe global hypokinesis. Moderately dilated left ventricle. Mild concentric LVH. Stage III DD. Moderate MR, mild to moderate TR, PAP 35 to 40 mmHg
LHC/RHC 11/16/2024: Elevated right/left ventricular filling pressures, normal coronary arteries; recommendation cease all alcohol, IV diuresis for elevated pressures.
Plan:
-Presented with LE edema, abdominal distension, and nausea/heartburn for 2-3 weeks prior to arrival.
-Admitted with acute HFrEF. Diuresed with IV lasix. Weight down to 220 lbs 11/18. Transitioned to PO lasix 40mg daily 11/18.
-SHANELL noted earlier in admission. Nephrology following. Creat stable at 1.0 11/18. Check BMP in 1 week.
-Echo 11/11 with EF 10% and moderate MR. Underwent R/LHC 11/16 with normal coronary arteries. Discussed importance of abstaining from all alcohol.
-Continue medical therapy with lisinopril and Toprol. Uptitration of medical therapy limited by hypotension.
-May consider addition of spironolactone as OP. Patient does note have insurance at this time. SGLT2 inhibitor cost prohibitive.
-10 beat run of NSVT noted on telemetry 11/16. Asymptomatic. Continues on Toprol.
-K 3.7 this AM, will replete. Mag 2.1 11/17.
-w/ CM, EF 10% with NSVT, discussed LifeVest with patient and he was agreeable to discuss cost w/ CM. TT sent to CM to discuss more w/ patient. Await final decision.
-Consider cardiac MRI as OP.
-There is reported family history of CM with a cousin who required heart transplant as well as other family members who required ICD implantation. Further details unknown.
-Follow up w/ repeat echo as OP to reassess EF w/ abstaining from alcohol and medical therapy. If EF remains reduced, would discuss ICD implant.
-Cardiology follow up visit arranged.
HPI 11/12/2024: Patient is a 49-year-old male with past medical history significant for asthma and [place] spotted fever who presents to emergency department with complaints of abdominal distention x 2 to 3 weeks associated with nausea and
heartburn as well as new lower extremity edema into scrotum and dyspnea on exertion. Patient was seen by family doctor and recently placed on steroids with temporary improvement of symptoms. He was placed on antibiotics for sore throat 3 days
prior to admission. P patient's family doctor checked BNP and D-dimer which were both elevated prompting him to come to emergency department. Lower extremity venous Doppler showed no evidence of DVT bilaterally. There was prominent bilateral
inguinal lymph nodes noted. CT of chest abdomen pelvis was performed which was negative for PE, aortic dissection or aneurysm. There was evidence of cardiomegaly. No pericardial effusion. There was moderate right and small left pleural effusion.
There was mild hepatomegaly and ascites. There was mild hilar, axillary, external iliac inguinal adenopathy. Troponins were negative. EKG showed sinus tachycardia with nonspecific T wave abnormality in lateral leads. Patient underwent
echocardiogram which showed reduced ejection fraction of 10% prompting cardiology consult. Patient was started on IV Lasix first dose given 11/11/2024.
Progress Note - Gaming Floor Supervisor
Subjective
Date of Service: November 18, 2024
No chest pain or SOB.
Objective
Labs:
11/17/24 06:09
11/18/24 07:31
Labs
Hgb 14.4 g/dL (13.0-18.0) 11/17/24 06:09
Hct 43.8 % (39.0-52.0) 11/17/24 06:09
Plt Count 151 10^3/uL (130-400) 11/17/24 06:09
PT 14.8 Sec (11.4-14.6) H 11/10/24 21:44
INR 1.11 11/10/24 21:44
APTT 27.5 Sec (23.4-35.0) 11/10/24 21:44
Sodium 134 mmol/L (135-145) L 11/18/24 07:31
Potassium 3.7 mmol/L (3.5-5.1) 11/18/24 07:31
BUN 23 mg/dl (9-20) H 11/18/24 07:31
Creatinine 1.0 mg/dL (0.7-1.3) 11/18/24 07:31
Glucose 96 mg/dl (70-99) 11/18/24 07:31
Vital Signs and I&O:
Vital Signs
Temp Pulse Resp BP Pulse Ox
98.3 F 89 18 110/71 97
11/18/24 07:30 11/18/24 07:30 11/18/24 07:30 11/18/24 07:30 11/18/24 07:30
Vital Signs
Temp Pulse Resp BP Pulse Ox
98.3 F 89 18 110/71 97
11/18/24 07:30 11/18/24 07:30 11/18/24 07:30 11/18/24 07:30 11/18/24 07:30
Intake & Output
11/16/24 11/17/24 11/18/24 11/19/24
06:59 06:59 06:59 06:59
Intake Total 600 / 600 840 / 840 960 / 960
Balance 600 / 600 840 / 840 960 / 960
Physical Exam
Physical Exam
GEN: No distress, awake, Ox3, sitting up in bed
HEENT: supple, anicteric, mmm
LUNGS: CTA b/l, no wheezes
CV: Reg, S1/S2, 1/6 syst murmur, no rub or gallop
EXT: no clubbing, edema, or cyanosis
NEURO: Gross non-focal
SKIN: warm, dry
[2024-11-18 11:11] VITALS: BP 103/67
[2024-11-18 12:22] LABS: NT-proBNP 4720 pg/ml
[2024-11-18] MEDS: LASIX 40 MG PO (12:23)
[2024-11-18] MEDS: KCL 40 MEQ PO (12:24)
--- NOTE | 2024-11-18 14:16 | W.PN.NEPH.PH ---
Today's Communication / Plan
-
Renal function stable will sign off please call if needed
Okay with SGLT2 inhibitor from renal standpoint will defer to cardiology
Assessment/Plan
-
IMP:
SHANELL
Acute HFrEF- 10%,moderate mitral regurgitation and pulmonary hypertension
Ascites / Edema
Pleural effusion
Mild, Diffuse Adenopathy
Alcohol use
Tobacco abuse
Alpha-gal syndrome
eczema
Hepatomegaly
Plan:
A/w edema, new CHF EF 10%
SHANELL likely from contrast on 11/10+diuresis
monitor cr post contrast again 11/16, creatinine remained stable
bland UA and low Fena , has underlying cardiorenal physiology
CT on admit neg for hydro
s/p LN biopsy 11/15
s/p LHC showed no CAD but elevated filling pressures, PCWP 32
BP soft on low dose BB, low dose ACEI started 11/16 per primary
would cont diuretics
mild hyponatremia-hypervolemic, maintain FR 48 ounces/day
avoid nephrotoxins
Awaiting LifeVest
Candidate for SGLT2 inhibitor= defer to cardiology
Will sign off please call if needed
-
-
Date of Service: November 18, 2024
CC / HPI / ROS
-
Chief Complaint:
SHANELL
History of Present Illness:
cr is better today at 1
BP remain soft
wt decreasing slowly
sodium 134
Review of Systems:
no cp or sob
feels well
Labs
-
Labs:
WBC 7.2 10^3/uL (4.8-10.8) 11/17/24 06:09
RBC 4.64 10^6/uL (4.70-6.10) L 11/17/24 06:09
Hgb 14.4 g/dL (13.0-18.0) 11/17/24 06:09
Hct 43.8 % (39.0-52.0) 11/17/24 06:09
Plt Count 151 10^3/uL (130-400) 11/17/24 06:09
Sodium 134 mmol/L (135-145) L 11/18/24 07:31
Potassium 3.7 mmol/L (3.5-5.1) 11/18/24 07:31
Chloride 100 mmol/L (98-107) 11/18/24 07:31
Carbon Dioxide 26 mmol/L (22-30) 11/18/24 07:31
BUN 23 mg/dl (9-20) H 11/18/24 07:31
Creatinine 1.0 mg/dL (0.7-1.3) 11/18/24 07:31
eGFR > 60.00 11/18/24 07:31
Glucose 96 mg/dl (70-99) 11/18/24 07:31
Calcium 8.1 mg/dl (8.4-10.2) L 11/18/24 07:31
Uct-A-Scoattzsprc Pept 4720 pg/ml 11/18/24 07:30
Albumin 3.2 g/dl (3.5-5.0) L 11/17/24 06:09
Physical Exam
-
Vital Signs:
Vital Signs
Temp Pulse Resp BP Pulse Ox
97.5 F 99 18 103/67 96
11/18/24 11:11 11/18/24 11:11 11/18/24 11:11 11/18/24 11:11 11/18/24 11:11
Cardiovascular:: Regular rate and rhythm
Respiratory:: Bilateral: CTA
Lung Excursion:: Normal
Abdomen:: Nontender and Soft
Extremity Edema:: +1: Bilateral: (trace)
Stanton Catheter: No
[2024-11-18 15:36] VITALS: BP 116/72
--- NOTE | 2024-11-18 15:45 | CM ---
Addendum entered by Kalie Crump 11/18/24 16:02:
CM updated Lele of script. will fax [phone] script and medical documentation. Lele to call floor and to patient to review costs. CM will continue to follow for discharge planning needs.
Original Note:
Patient with script for Life Vest. Script is on chart. CM left for contact [phone] Lele Choudhary. Awaiting call back to clarify cost. Physician and nursing aware.
Plan; home with no needs; pending Life Vest cost
[2024-11-18] MEDS: TYLENOL 650 MG PO (17:06)
[2024-11-18 19:13] VITALS: BP 98/57
[2024-11-18] MEDS: ADVAIR HFA 115/21 MCG INHALER 2 PUFF INH (20:15)
[2024-11-18] MEDS: MELATONIN 5 MG PO (21:06)
[2024-11-18] MEDS: COREG PO (22:18)
[2024-11-18] MEDS: ZESTRIL PO (22:18)
[2024-11-18 23:28] VITALS: BP 90/64
[2024-11-19] MEDS: FLUSH (NSS) 1 FLUSH IV (00:23)
[2024-11-19] MEDS: ZOFRAN 4 MG IV (00:23)
--- NOTE | 2024-11-19 01:10 | VATNOTE ---
IV IN LFA D/C'D DOCUMENTED. PT WITH 4CM PALPABLE CORD. AREA IS REDDENED AND PT REPORTS MODERATE DISCOMFORT. PCN MADE AWARE AND TO APPLY WARM COMPRESSES THRU THE NIGHT. VAT TO MONITOR.
[2024-11-19] MEDS: TYLENOL 650 MG PO ×3 (03:45→14:12)
[2024-11-19 03:59] VITALS: BP 131/70
[2024-11-19 06:00] VITALS: BMI 30.2
[2024-11-19 07:24] VITALS: BP 92/65
--- NOTE | 2024-11-19 07:34 | PTCARENOTE ---
Pt aaox3 able to make his needs known,anxious at times.Pt left arm IV infiltrated site continued to be monitored,arm elevated on a pillow,warm compress was given to pt as needed.Pt refused for a warm compress again this morning.Pt complained of
right leg pain this morning,prn tylenol given, leg elevated on pillow.Pt thinks he might have slept in a different way. Pt denies of hitting his leg anywhere,pt has old scabs on leg,as per pt they are not new, pt able to moove his toes,good
circulation.Plan of care continued.Report provided to next RN.
[2024-11-19] MEDS: VITAMIN B1 100 MG PO (08:52)
[2024-11-19] MEDS: HEPARIN 5000 UNITS SC ×2 (08:53→15:25)
[2024-11-19] MEDS: FOLVITE 1 MG PO (08:53)
[2024-11-19] MEDS: PROTONIX 40 MG PO (08:53)
[2024-11-19] MEDS: COREG 3.125 MG PO (08:53)
[2024-11-19] MEDS: MIRALAX 17 GRAMS PO (09:09)
--- NOTE | 2024-11-19 09:45 | CM ---
Addendum entered by Paulina Oquendo RN 11/19/24 11:43:
As per [employer] rep [employer] Life vest covered pt to pay a deposit and rep will fit him with vest today.
PLAN; Home with Life vest
Original Note:
Spoke with Mikey contact [phone] Lele Choudhary he said pt may make too much to qualify for pt financial assistance.Lele to call back with determination.
Dr Stovall cardiology and Dr Garcia aware of above.
Spoke with Jada PINTO she said she will submit Medicaid application. Pt and have submitted paper work for disability also.
Pt does nt have insurance.
Pt or will transport home.
PLAN Discharge to home
[2024-11-19 11:55] VITALS: BP 93/63
[2024-11-19] MEDS: LASIX 40 MG PO (12:27)
--- NOTE | 2024-11-19 14:06 | W.PN.UPDATE ---
Update Note
Progress Note Update
Patient stable for discharge from a cardiac standpoint. Continue current cardiac medications. Plan is for discharge with Lifevest given NSVT w/ dilated cardiomyopathy and EF 10%. Follow up arranged.
--- NOTE | 2024-11-19 14:53 | W.PN.HOSP.TC ---
Today's Communication/Plan
-
Discharge planning
Assessment / Plan
Assessment / Plan
Physical Exam
General: not in distress.
HEENT: Other (moist MM.
Respiratory: No wheezes.
Cardiac: S1/S2
GI: Soft, Non Tender, Non Distended and Normal Bowel Sounds
Musculoskeletal: No Clubbing, No Cyanosis
Skin: Other (dry skin, Generalized erythema diffusely with eczema skin changes / superficial excoriations.)
Neuro: AO x 3 and Nonfocal/grossly intact
Psych: calm, pleasant
A/P: Patient is a 49y M with PMH significant for asthma and prior RMSF infection who presents to ED complaining of abdominal distention, increased edema, etc.
#Acute HFrEF
�Unclear etiology, recent viral infection RMSF, could be related. Hx of ETOH intake
Echo showed LVEF 10 %, severe global hypokinesia.
Right and left heart catheterization showed normal coronaries, Elevated R&L ventricular filling pressures.
� Started on beta-shelly, Coreg BID. Added low dose SHERIDAN as BP. Limitation to push GDMT due to low blood pressure & financial cost.
� Monitored blood pressure
�ICD placement as per cardiology. Life vest evaluation pending case management arrangement.
�Educated on alcohol and tobacco cessation, he verbalized understanding.
- Started on Lasix at noon, spreading doses of his medication to avoid hypotension as possible
# NSVT
Infrequent, with no symptoms normal coronaries
c/w BB
Normal magnesium level.
#SHANELL
Improved, creatinine is lower to 1.0
SHANELL Seems c/w contrast induced AIN with ongoing heart failure, pre-renal. Low urine sodium.
Recent contrast study done on 11/10
- avoid nephrotoxic agents. Ok to do Lasix with improvement.
Appreciate nephrology help
Mild, Diffuse Adenopathy
� May be reactive secondary to eczema, hematology wants to rule out multicentric Castleman's disease as well as low-grade lymphoma.
� IR consulted for biopsy of the left inguinal lymph node�done on 11/15
� Hematology following
Alcohol use
No signs of alcohol withdrawal, dc MSAS protocol
�Cessation advised, he verbalized understanding.
Tobacco abuse
� Smoking cessation advised
Alpha-gal
- Recent lab assay indicated intermediate sensitivity macy beef / ramos in particular.
- Would recommend patient avoid these proteins and follow for improvement in his skin / joint changes, edema, etc.
DVT Prophylaxis: HSQ
Code Status: Full
Total discharge time spent to see the patient, examine the patient, review data and lab results, discuss the discharge plan with patient, his , cardiology, srikanth davis, nursing staff around 55 minutes
Anticipated Discharge: Today
Subjective/Interval History
-
Date of Service: November 19, 2024
Doing well
No chest pain
No sob
Objective Data
-
Vital Signs:
Vital Signs
Temp Pulse Resp BP Pulse Ox
97.7 F 98 16 93/63 98
11/19/24 11:55 11/19/24 11:55 11/19/24 11:55 11/19/24 12:27 11/19/24 11:55
I&O
11/18/24 11/19/24 11/20/24
06:59 06:59 06:59
Intake Total 960 / 960 1300 / 1300
Balance 960 / 960 1300 / 1300
[2024-11-19 15:16] VITALS: BP 95/66
--- NOTE | 2024-11-20 14:24 | W.DCSUMMARY ---
Discharge Summary
Discharge Data
Date of Admission: 11/11/24
Date of Discharge: 11/19/24
-
Pending Results: No
Hospital Course
49 years old male presented the emergency room complaining of abdominal distention, lower extremities swelling , eczema and palpable adenopathy. Patient was found to have ascites and peripheral edema. Patient reported he was recently diagnosed with
Alpha-gal syndrome. Also history of treatment for [place] Spotted Fever 5 years ago. Patient was seen by infectious disease consulted and did not recommend further antibiotic therapy. Clinical examination was consistent with congestive
heart failure. Echocardiogram showed left ventricular ejection fraction 10% with severe global hypokinesis, right ventricular hypokinesis, moderate MR, mild to moderate tricuspid regurgitation. Patient was started on Lasix therapy. He underwent
left and right heart catheterization that did not show coronary disease and showed elevated left and right filling pressures. Patient was maintained on diuretic treatment but there was limitation to add goal-directed medical therapy to his regimen
due to low blood pressure. Patient also reported that he did not have health insurance and was unable to afford high cost medications. Medications were introduced slowly. His renal function was monitored and it was followed by enrichment teacher.
Regarding diffuse adenopathy, he had lymph node biopsy of the left inguinal node. He was followed by oncology was advised to follow as outpatient to discuss the result of the lymph node biopsy. Patient was noted to have nonsustained ventricular
tachycardia with dilated cardiomyopathy and reduced ejection fraction around 10%. Blister Pack Operator recommended LifeVest as a temporary measure until further follow-up and monitoring of his cardiac function. manager corporate communications was consulted and arrangements
were made. Patient remained hemodynamically stable and was discharged home in a stable condition.
Discharge Plan
-
Patient Disposition: Home (Routine Discharge)
Discharge Diagnosis/Procedures: Newly diagnosed acute systolic heart failure, you were followed by washing machine striper, you had Cardiac cath
Diet: Low Cholesterol and 2 Gram Sodium
Driving Restrictions: No driving for 24 hours
Stand Alone Forms: DC Instructions- Cath/EP Lab
Referrals:
Jessica Sanders MD [Family Provider] -
Genoveva Cesar CRNP [Specified Professional Personl] - 11/25/24 3:40 pm (You have a follow up visit with cardiology at the [place] office. Please call with questions. )
Prescriptions:
New
furosemide 40 mg Tablet
40 mg PO NOON Qty: 30 0RF
carvedilol 3.125 mg Tablet
3.125 mg PO BID Qty: 60 0RF
lisinopril 2.5 mg Tablet
2.5 mg PO HS Qty: 30 0RF
Continued
fluticasone propion-salmeterol 250-50 mcg/dose Blister With Device
1 inh INHALATION R QPM
albuterol sulfate 90 mcg/actuation Hfa Aerosol Inhaler
2 puff INHALATION R Q6HPRN PRN (Reason: sob)
Discontinued
furosemide 20 mg Tablet
20 mg PO BID
azithromycin 500 mg Tablet
500 mg PO QPM
Patient Comments:
11/10/24: to take for 10 days
Discharge Orders:
Discharge Patient (As Directed); Ordered 11/19/24
Ordered By: Dhaval Garcia
Discharge Date and Time
Discharge Date/Time: 11/19/24 19:05
Print Language: ESTONIAN
== END 2024-11-19 19:05 | disposition home or self-care (01) | DRG 823 ==
LOC: 4 EAST ACU 13:54
PROVIDERS: Internal Medicine; Internal Medicine Cardiovascular Disease; Internal Medicine Interventional Cardiology; Physician Assistant; Radiology Diagnostic Radiology; ADMITTING PHYSICIAN Hospitalist; ATTENDING PHYSICIAN Internal Medicine; CONSULT PHYSICIAN Internal Medicine; CONSULT PHYSICIAN Internal Medicine Cardiovascular Disease; CONSULT PHYSICIAN Internal Medicine Infectious Disease; EMERGENCY PHYSICIAN Student in an Organized Health Care Education/Training Program; FAMILY PHYSICIAN Family Medicine; OTHER PHYSICIAN Internal Medicine Hematology & Oncology
PROC: 07BJ3ZX Excision of Left Inguinal Lymphatic, Percutaneous Approach, Diagnostic (ICD-10-PCS; 2024-11-15)
PROC: 4A023N8 Measurement of Cardiac Sampling and Pressure, Bilateral, Percutaneous Approach (ICD-10-PCS; 2024-11-16)
PROC: B2111ZZ Fluoroscopy of Multiple Coronary Arteries using Low Osmolar Contrast (ICD-10-PCS; 2024-11-16)
DX: D47.Z2 Castleman disease (principal); I50.21 Acute systolic (congestive) heart failure; R18.8 Other ascites; I42.0 Dilated cardiomyopathy; N17.9 Acute kidney failure, unspecified; I47.20 Ventricular tachycardia, unspecified; E87.1 Hypo-osmolality and hyponatremia; M79.89 Other specified soft tissue disorders; R14.0 Abdominal distension (gaseous); J45.909 Unspecified asthma, uncomplicated; I08.1 Rheumatic disorders of both mitral and tricuspid valves; I27.20 Pulmonary hypertension, unspecified; E87.5 Hyperkalemia; R79.82 Elevated C-reactive protein (CRP); L29.9 Pruritus, unspecified; F10.10 Alcohol abuse, uncomplicated; R16.0 Hepatomegaly, not elsewhere classified; L30.9 Dermatitis, unspecified; R59.0 Localized enlarged lymph nodes; F17.210 Nicotine dependence, cigarettes, uncomplicated; Z91.014 Allergy to mammalian meats; Z80.9 Family history of malignant neoplasm, unspecified; Z79.51 Long term (current) use of inhaled steroids; Z86.19 Personal history of other infectious and parasitic diseases; Z59.71 Insufficient health insurance coverage
CPT/HCPCS: 88305; 38505; 71046; 71275; 74177; 76942; 80048; 80053; 81003; 81015; 82570; 83036; 83690; 83735; 83880; 84300; 84443; 84484; 85025; 85027; 85610; 85652; 85730; 86140; 86803; 87389; 88333; 88341; 88342; 93005; 93306; 93460; 93970; 94640; 96374; 99285; 99406; C1894; Q9967

== ENCOUNTER 2024-11-21 14:18 | Emergency (ER) | payer OTHER, SELFPAY ==
[2024-11-21] VITALS (9 sets, daily range): BP systolic 87–101; BP diastolic 61–83
[2024-11-21 18:03] LABS: % Basophils 0.8 % (0-2); % Eosinophils 1.8 % (0-6); % Immature Granulocytes 0.4 % (0-0.5); % Lymphocytes 24.1 % (20.5-51.1); % Neutrophils 62.9 % (42.2-75.2); Absolute Basophils 0.1 10^3/uL (0-0.2); Absolute Eosinophils 0.1 10^3/uL (0-0.7); Absolute Lymphocytes 1.9 10^3/uL (1.2-3.4); Absolute Monocytes 0.8 10^3/uL (0.1-0.6); Hematocrit 43.3 % (39.0-52.0); Hemoglobin 14.2 g/dL (13.0-18.0); Mean Corp Hgb Conc. 32.8 g/dL (33.0-37.0); Mean Corpuscular Hgb 30.5 pg (27.0-31.0); Mean Corpuscular Volume 92.9 fL (80.0-94.0); Mean Platelet Volume 10.8 fL (7.4-10.4); Nucleated Red Blood Cells % 0 % (-); Platelet Count 226 10^3/uL (130-400); Red Blood Cell Count 4.66 10^6/uL (4.70-6.10); Red Cell Dist. Width 13.8 % (11.5-14.5); White Blood Cell Count 7.9 10^3/uL (4.8-10.8)
[2024-11-21 18:18] LABS: ALT (SGPT) 27 U/L (0-50); AST (SGOT) 22 U/L (17-59); Albumin 3.5 g/dl (3.5-5.0); Alkaline Phosphatase 105 U/L (38-126); Blood Urea Nitrogen 18 mg/dl (9-20); Calcium 8.5 mg/dl (8.4-10.2); Carbon Dioxide 27 mmol/L (22-30); Chloride 98 mmol/L (98-107); Glucose 96 mg/dl (70-99); Potassium 4.6 mmol/L (3.5-5.1); Sodium 133 mmol/L (135-145); Total Bilirubin 0.6 mg/dl (0.2-1.3); eGFR > 60.00
[2024-11-21 18:26] LABS: NT-proBNP 5040 pg/ml
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
[2024-11-21] MEDS: KEFLEX 500 MG PO (19:51)
== END 2024-11-21 20:10 | disposition home or self-care (01) ==
LOC: EMR 14:18
PROVIDERS: Emergency Medicine; EMERGENCY PHYSICIAN Emergency Medicine; FAMILY PHYSICIAN Family Medicine
DX: L03.115 Cellulitis of right lower limb (principal); I50.9 Heart failure, unspecified
CPT/HCPCS: 99285; 71046; 73630; 80053; 83880; 85025; 93005; 93970

== ENCOUNTER 2024-12-04 14:52 | Inpatient (IN) | payer OTHER, SELFPAY ==
[2024-12-04] VITALS (11 sets, daily range): BP systolic 90–153; BP diastolic 65–139
[2024-12-04 09:54] LABS: % Basophils 0.4 % (0-2); % Immature Granulocytes 0.1 % (0-0.5); % Lymphocytes 18.9 % (20.5-51.1); % Monocytes 9.1 % (1.7-9.3); % Neutrophils 70.5 % (42.2-75.2); Absolute Eosinophils 0.1 10^3/uL (0-0.7); Absolute Lymphocytes 1.4 10^3/uL (1.2-3.4); Absolute Monocytes 0.7 10^3/uL (0.1-0.6); Absolute Neutrophils 5.1 10^3/uL (1.4-6.5); Hematocrit 41.2 % (39.0-52.0); Hemoglobin 13.8 g/dL (13.0-18.0); Mean Corp Hgb Conc. 33.5 g/dL (33.0-37.0); Mean Corpuscular Hgb 30.5 pg (27.0-31.0); Mean Corpuscular Volume 91.2 fL (80.0-94.0); Nucleated Red Blood Cells % 0 % (-); Platelet Count 191 10^3/uL (130-400); Red Blood Cell Count 4.52 10^6/uL (4.70-6.10); Red Cell Dist. Width 13.9 % (11.5-14.5); White Blood Cell Count 7.3 10^3/uL (4.8-10.8)
[2024-12-04 10:10] LABS: ALT (SGPT) 30 U/L (0-50); AST (SGOT) 23 U/L (17-59); Albumin 3.6 g/dl (3.5-5.0); Alkaline Phosphatase 99 U/L (38-126); Blood Urea Nitrogen 21 mg/dl (9-20); Calcium 8.7 mg/dl (8.4-10.2); Carbon Dioxide 21 mmol/L (22-30); Chloride 104 mmol/L (98-107); Glucose 103 mg/dl (70-99); Potassium 4.4 mmol/L (3.5-5.1); Sodium 137 mmol/L (135-145); Total Bilirubin 1.2 mg/dl (0.2-1.3); Total Protein 6.4 g/dl (6.3-8.2); eGFR > 60.00
[2024-12-04 10:24] LABS: Troponin I < 0.012 ng/ml
--- NOTE | 2024-12-04 10:56 | ED.GENMED ---
History of Present Illness
General
Chief Complaint: Chest Pain
Source: patient and spouse
Exam Limitations: none
Time Seen by Provider: 12/04/24 10:56
History of Present Illness
History of Present Illness:
49-year-old male progressive anterior chest pain x 3 days. Worse with deep breathing. No radiation to the back. Some shortness of breath. Cannot lie flat secondary to pain. No fever. History of recent complicated admission for severe
cardiomyopathy however did not have the symptoms at that time.
Past History
Past History
ED Past Medical History: Asthma (Uses a pro-air inhaler and Singulair as needed. He has not used them recently.) and Other (Severe cardiomyopathy)
ED Past Surgical History: Other (wisdom teeth)
Social History
Tobacco: Non-smoker
Personal:
Living: with family
Employment: Employed
Review of Systems
Review of Systems
All Other Systems: Not applicable
Constitutional: Denies fever or chills
Phy Exam
Physical Exam
Physical Exam:
GENERAL: Alert and oriented. Nontoxic but appears very uncomfortable. Increased pain with attempting to lie flat
EYE: Orbits normal.
NECK: Supple
CARDIAC: Regular rate and rhythm without any obvious murmurs.
LUNGS: Clear breath sounds,normal
ABDOMEN: Soft, without focal tenderness or distention
NEUROLOGICAL: Alert and oriented , grossly non-focal
SKIN: Warm and dry, no rash or lesion, no discoloration, skin intact.
MUSCULOSKELETAL: No edema,no deformity.Good color
PSYCH: Normal and appropriate interaction.
Scores
Heart Score for Chest Pain Patients
STEMI patient?: No
History: Slightly or Non-Suspicious
ECG: Normal
Age: >45 - <65 years
Risk Factors: 1 or 2 Risk Factors
Troponin: </= Normal Limit
Heart Score for Chest Pain Patients: 2
Heart Score Risk: 2.5% MACE over next 6 weeks
Course
Orders/Labs/Results
Orders:
Orders
12/04/24 09:29
EKG [Electrocardiogram (*1)] Urgent
Reason for Study: Chest Pain
EKG- Treatment ONCE
12/04/24 09:48
Complete Blood Count/With Diff Urgent
Comprehensive Metabolic Panel Urgent
NT-proBNP Urgent
Comment: ADD ON
Troponin I Urgent
12/04/24 11:12
Add On- LAB Urgent
Tests Added?: d-dimer
12/04/24 11:18
D-Dimer Urgent
Comment: ADD ON
PTT Urgent
Prothrombin Time Urgent
12/04/24 11:22
HYDROmorphone [Dilaudid] 0.25 mg IV NOW STA
CXR Port [CR Chest Portable - 1 View] Urgent
Comment:
Reason For Exam: Severe chest pain
Reason Study Needs to be Portable: Unable to Transport
12/04/24 11:45
Acetaminophen 1000MG/100Ml [Ofirmev] 1,000 mg in 100 ml IV ONCE
Acetaminophen IV Indication:: ED Narcotic Naive Pt-ONCE
HYDROmorphone [Dilaudid] 0.5 mg IV NOW STA
12/04/24 11:58
Colchicine 0.6 mg PO NOW STA
12/04/24 12:30
CT Chest PE Study Urgent
Comment:
Reason For Exam: Pleuritic chest pain. Positive dimer
12/04/24 12:31
HYDROmorphone [Dilaudid] 0.5 mg IV NOW STA
12/04/24 13:13
Echo Follow up Study W Dop Urgent
Reason for Study: CP, R/O EFFUSION
Cardiology Consult: Ramu Dougherty
12/04/24 13:41
Add On- LAB Urgent
Tests Added?: pro-BNP
12/04/24 14:26
Admit/Transfer Patient As Directed
Co-Sign Provider:
Level of Care: Inpatient admission
Assign to:: IVU
Physician / Group: katherine
Diagnosis: pericarditis
Reason for Hospitalization: pericarditis
Expected length of stay greater than two midnights?: Yes
ELOS- Estimated Length of Stay in days: 2
I certify the patient meets the requirements for IP care: Yes
12/04/24 14:27
Code Status As Directed
Resuscitation Status: Full Code
PRN Pain Medication Management As Directed
May give lesser potent ordered pain med per pt: Yes
preference::
Protocol:: Medication orders for pain may be administered in a
manner that supports deferring to patient preference
when the pt is:
- Requesting an ordered lesser potent pain medication.
Least to most potent pain medications are defined
as: acetaminophen < NSAID < tramadol < opioids
(morphine, oxycodone, hydromorphone).
- Requesting a lesser dose of the same medication IF
ORDERED.
- Requesting a less intrusive route of administration
if both routes are prescribed by the provider (PO <
IV).
12/04/24 Dinner
Cholesterol Lowering
At Your Request: Full Participation
Cholesterol Lowering: Sodium, 2 Gram
12/04/24 15:07
HYDROmorphone [Dilaudid] 0.5 mg IV Q4HPRN PRN
12/04/24 15:25
CARDIOLOGY CONSULT Routine
Consulting Provider: Ramu Dougherty
Was physician already notified: Yes
Activity As Directed
Activity Level: As Tolerated
Vital Signs As Directed
Frequency: Per unit guidelines
DX Deep Vein Thrombosis Video Routine
12/04/24 15:50
Troponin I Q6H
12/04/24 20:00
Carvedilol [Coreg] 1.5625 mg PO BID
Colchicine 0.3 mg PO BID
Heparin 5,000 units SC Q12
12/04/24 21:25
Troponin I Q6H
12/05/24 03:25
Troponin I Q6H
12/05/24 06:00
Complete Blood Count/With Diff IN AM
Comprehensive Metabolic Panel IN AM
12/05/24 09:25
Troponin I Q6H
12/05/24 17:00
Furosemide [Lasix] 30 mg PO BID AT 0800,1600
Abnormal Lab Results
12/04/24 12/04/24
09:48 11:18
RBC 4.52 L 10^6/uL
(4.70-6.10)
Absolute Monos (auto) 0.7 H 10^3/uL
(0.1-0.6)
Lymphocytes % 18.9 L %
(20.5-51.1)
PT 15.4 H Sec
(11.4-14.6)
D-Dimer 1.28 H ug/mlFEU
(0.00-0.50)
Carbon Dioxide 21 L mmol/L
(22-30)
BUN 21 H mg/dl
(9-20)
Glucose 103 H mg/dl
(70-99)
12/04/24 09:48
12/04/24 09:48
Vital Signs
Initial and Last Documented VS:
Initial Vital Signs
Temp Pulse Resp BP
97.8 F 90 22 98/65
12/04/24 09:35 12/04/24 09:35 12/04/24 09:35 12/04/24 09:35
Last Documented Vital Signs
Temp Pulse Resp BP Pulse Ox
97.9 F 103 30 99/71 97
12/04/24 09:37 12/04/24 16:30 12/04/24 15:15 12/04/24 15:41 12/04/24 16:15
MDM/Problems Addressed
Differential Diagnosis Includes:
Patient with progressive continuous anterior chest pain. Pleuritic like in nature. Had clean coronaries. Troponin and EKG within normal limits. Not ischemic in nature. However concern for pericarditis/pericardial effusion and pulmonary emboli.
Patient did have issues with the dye load and there was some speculation that his bump in creatinine was secondary to the dye load. To consider either CT scan with dye or echocardiogram and D-dimer. Will discuss with cards and nephrology
*Pulse Oximetry
Patient hypoxic: no
*EKG
Interpreted by ED Provider?: Yes
Interpretation: abnormal
Comparison EKG: no changes
Heart Rate: 88
Rate: normal
Rhythm: sinus
Call: left axis deviation
Interval: long QT
QRS Pattern: normal QRS
Ischemia: non-specific ST changes
*Critical Care Note
Total Time (30-74mins, 75-104mins- exclusive of procedures): 45
Data Reviewed
Review of Other/Old Records Reveals: Labs, Records, Radiology Studies, Testing, Discharge Summary and Other (Cath report)
Update Note
Update Note:
1145.... 0.25 of Dilaudid did very little. Will double the dose. Also add Ofirmev. Patient symptoms again consistent with pericarditis or pulmonary emboli. Chest x-ray reviewed with radiology. Doubt CHF. Some atelectasis in the bases. May be
a small effusion. No florid heart failure. Updated cardiology. To consider stat echocardiogram.
ED Attending Note
-
Portions of this chart may have been created with voice recognition software.� Occasional wrong word or��sound alike� substitutions may have occurred due to the inherent limitations of voice recognition software.
Discharge Plan
Departure
Patient Disposition: Admit
Date of Disposition: 12/04/24
Time of Disposition: 14:00
Presentation/result/management discussed w/ accepting MD/DO: Cardiology
Discharge Problem:
Severe pleuritic chest pain, pericarditis, History of nonischemic cardiomyopathy
Interventions
Interventions:
*Risk Screen - Suicide Last Done: 12/04/24 11:13
*General Assessment Last Done: 12/04/24 11:13
*Neglect/Abuse Screening Last Done: 12/04/24 11:13
ED- Fall Risk Assessment Last Done: 12/04/24 15:35
*ED COVID-19 Vaccine History Last Done: 12/04/24 11:13
*Nursing Disposition Last Done: 12/04/24 15:35
ED- Cardiac Assessment Last Done: 12/04/24 11:12
Discharge Date and Time
Discharge Date/Time: 12/04/24 15:36
[2024-12-04] MEDS: DILAUDID 0.25 MG IV (11:25)
[2024-12-04 11:34] LABS: INR 1.19; PT 15.4 Sec (11.4-14.6)
[2024-12-04 11:35] LABS: APTT 29.6 Sec (23.4-35.0)
[2024-12-04 11:38] LABS: D-Dimer 1.28 ug/mlFEU (0.00-0.50)
[2024-12-04] MEDS: DILAUDID 0.5 MG IV ×4 (12:00→20:06)
[2024-12-04] MEDS: OFIRMEV 100 IV (12:00)
[2024-12-04] MEDS: COLCHICINE 0.6 MG PO (12:07)
--- NOTE | 2024-12-04 12:31 | CON.CAR ---
Addendum entered and electronically signed by Ramu Dougherty MD 12/04/24 13:40:
49-year-old man with recently diagnosed nonischemic cardiomyopathy of uncertain etiology, EF 10% with moderate MR and acute HFpEF, sent home with a LifeVest for nonsustained VT. Prior history of [place] spotted fever, alpha-gal syndrome,
Castleman disease, now with symptoms of pericardial discomfort and loud pericardial friction rub. Seen in our office yesterday. Scheduled for cardiac MRI as outpatient issues of hypotension had precluded optimization of GDMT.
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
inguinal node, L5-gal syndrome, nonsustained VT currently with LifeVest
Cardiac catheterization 11/16: Pulmonary capillary wedge pressure 30, PA 43/27, normal coronary arteries, LVEDP 31, no V gram
Echo 11/11/2024: Moderately dilated left ventricle, EF 10% by visual assessment, global hypokinesis, mild LVH, RV hypokinesis moderate mitral regurgitation, mild to moderate tricuspid regurgitation, pulmonary artery systolic pressure 35-40 mmHg
96/81, pulse 94, afebrile, no acute distress but sitting up, in pain when laying flat, has received Dilaudid, diminished breath sounds right lung, neck veins modestly elevated relatively tachycardic with loud pericardial friction rub, abdomen
somewhat distended extremities 2+ edema
Hemoglobin 13.8, D-dimer is 1.28, BUN and creatinine are 21 and 1.3, troponin is undetectable
EKG sinus rhythm, nonspecific T wave changes, left atrial enlargement, mildly prolonged QT
Impression: See below for complete list
At present, major issue seems to be pericarditis with classic symptoms and physical exam pericardial friction rub
Plan:
He presents with presumed acute pericarditis of unknown etiology, likely idiopathic. However, he has a nonischemic cardiomyopathy that is unexplained, we need to consider entities such as scarring, myocarditis, etc. At present his troponin is
undetectable.
While in hospital, he can take off his LifeVest. Utility of LifeVest and nonischemic cardiomyopathy is limited.
Await CT scan of chest. To my read there was no significant pericardial effusion or pulmonary embolus.
We will recheck his echocardiogram.
He looks volume overloaded, may be difficult to optimize his medical status and volume.
Will need to consider whether he needs to be referred to an advanced heart failure center.
For now, treat with colchicine. May be best to limit nonsteroidals if possible given renal and cardiac effects.
We will continue to follow.
Original Note:
Consultation
Consultation Request
Date/Time Consultation Requested: 12/04/2024
Date/Time Consultation Performed: 12/04/2024
Requesting Provider: Dr. Anton
Performing Provider: Rachel Stephenson PA-C for Dr. JONI Dougherty
Reason for Consultation: Chest pain
Medical History
-
History of Present Illness:
Patient is a 49-year-old male with past medical history significant for heart failure with reduced ejection fraction, nonischemic cardiomyopathy, nonobstructive coronary artery disease on catheterization October 2024, nonsustained ventricular
tachycardia, moderate MR, pulmonary hypertension, CKD, hepatomegaly with history of ascites, asthma, [place] spotted fever and history of tobacco and alcohol abuse. Patient had recent admission in 11/11/2024 with abdominal distention, lower
extremity edema, palpable adenopathy he was found to have significant ascites and peripheral edema. He was found to have a nonischemic cardiomyopathy with a EF of 10% and nonobstructive coronary artery disease on catheterization. He had moderate
MR and pulmonary hypertension on catheterization. Given his diffuse adenopathy had lymph node biopsy for concerns of cattleman's disease. Per review of records was also diagnosed with Alpha-gal syndrome. Patient was also seen in late October
with complaints of cellulitis of right foot and was placed on Keflex then started on Bactrim by primary doctor.
Presents 12/04/2024 with intermittent epigastric/chest discomfort for several days which has now become more persistent and severe in nature prompting him to seek emergency medical attention. Patient reports he develops a epigastric pain that is
sharp and when he takes a deep breath or tries to move it radiates upwards into his chest into his back and neck. He reports it is worse with taking deep breaths. He notes some mild associated nausea. Initial troponin negative. EKG shows sinus
rhythm with nonspecific T wave abnormality similar to prior tracings. D-dimer 1.28. Chest x-ray with low lung volumes and bibasilar atelectasis with possible small right effusion. Blood pressure low but appears to be his baseline compared to
prior blood pressures during recent admission. Given ongoing pain patient was given 3 doses of IV Dilaudid and IV acetaminophen with some improvement of symptoms. Also was provided colchicine. At time of this evaluation patient still
uncomfortable reporting epigastric discomfort radiating into the chest worse with taking deep breaths.
PMH:
Chronic Heart failure with reduced ejection fraction
Nonischemic cardiomyopathy, EF 10%
Nonobstructive CAD on [facility] 11/16/2024
NSVT on [facility] 11/16/2024
Moderate mitral regurgitation
Pulmonary hypertension
CKD
Hepatomegaly
h/o Pleural effusion
Elevated CRP
Alpha-Gal syndrome
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
status post IR biopsy of left inguinal lymph node
Tobacco abuse
Daily alcohol use
History of [place] Spotted Fever
Asthma
Past Medical History
Past Medical History: Other (See HPI)
Past Surgical History: Orthopedic (Bilateral shoulder surgeries, right hand surgery, ORIF Right Ankle / Foot) and Other ([place] teeth extraction)
Social History
Tobacco: Smoker (1/2-1 pack daily)
Alcohol: Daily (3-4 glasses of wine)
Drug: None
Personal:
Living: With Family
Employment: Employed (starting own business)
Family History
Family History: Other (Mother: Lymph Node Cancer; Aunt had heart transplant, father has PPM)
Allergies / Home Medications
Allergy/AdvReac Type Severity Reaction Status Date / Time
coconut oil Allergy Rash Verified 12/04/24 09:40
grass Allergy Rash Uncoded 12/04/24 09:40
pollen Allergy Rash Uncoded 12/04/24 09:40
�Medication �Instructions �Recorded �Confirmed �Type
albuterol sulfate 90 mcg/actuation 2 puff inhalation R Q6HPRN PRN sob 11/10/24 11/10/24 History
aerosol inhaler
fluticasone 250 mcg-salmeterol 50 1 inh inhalation R QPM 11/10/24 11/10/24 History
mcg/dose blistr powdr for Lung/Breathing Issues
inhalation
carvedilol 3.125 mg tablet 3.125 mg PO BID #60 tabs 11/19/24 Rx
furosemide 40 mg tablet 40 mg PO NOON #30 tabs 11/19/24 Rx
lisinopril 2.5 mg tablet 2.5 mg PO HS #30 tabs 11/19/24 Rx
cephalexin 500 mg tablet 500 mg PO QID 7 days #28 tabs 11/21/24 Rx
Review of Systems
-
History Source: Patient
All other systems: Negative unless noted
Physical Exam
Vital Signs
Temp Pulse Resp BP Pulse Ox
97.9 F 89 16 101/77 99
12/04/24 09:37 12/04/24 11:08 12/04/24 12:00 12/04/24 11:07 12/04/24 11:12
GEN: No distress, awake, Ox3
HEENT: supple, anicteric, mmm
LUNGS: Few scattered crackles at bases otherwise CTA, no wheezes/rales
CV: Reg, S1/S2, 1/6 syst murmur at apex, +pericardial rub
ABD: soft, BS+, NT/ND
EXT: No edema, clubbing or cyanosis
NEURO: Gross non-focal
SKIN: No rash, warm, dry, pink
Lab Results
01/11/25 09:48
12/04/24 09:48
Troponin I < 0.012 ng/ml 12/04/24 09:48
Impression / Plan
-
PCP: Jessica Sanders
Superintendent Distribution: Dr. Erickson
Impression:
Presents 12/04/2024 with complaints of epigastric and chest discomfort radiating upwards worse with inspiration and deep breaths
Elevated D-dimer
Concern for pericarditis
Chronic Heart failure with reduced ejection fraction
Nonischemic cardiomyopathy, EF 10%
Nonobstructive CAD on [facility] 11/16/2024
NSVT on [facility] 11/16/2024
Moderate mitral regurgitation
Pulmonary hypertension
CKD
Hepatomegaly
h/o Pleural effusion
Alpha-Gal syndrome
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
status post IR biopsy of left inguinal lymph node
Tobacco abuse
Daily alcohol use
History of [place] Spotted Fever
Asthma
Echo 11/11/2024: EF 10% with severe global hypokinesis. Moderately dilated left ventricle. Mild concentric LVH. Stage III DD. Moderate MR, mild to moderate TR, PAP 35 to [address]
[facility]/C 11/16/2024: Elevated right/left ventricular filling pressures, normal coronary arteries; recommendation cease all alcohol, IV diuresis for elevated pressures.
Plan:
-Presents 12/04/2024 with complaints of epigastric and chest discomfort radiating upwards worse with inspiration and deep breaths which started several days ago but has increased in frequency and intensity.
-EKG sinus rhythm with nonspecific T wave abnormality unchanged from prior tracings. Troponin negative. Patient had cardiac catheterization 3 weeks ago which failed to show any significant coronary artery disease. Unlikely acute coronary artery
syndrome
-D-dimer elevated at 1.28. Would recommend CT of chest/PE protocol.
-Patient was provided IV Dilaudid and Tylenol with some improvement but not resolution of symptoms.
-Concern for possible pericarditis given symptoms and rub. Agree with trying colchicine 0.6 mg BID. Toradol would be another option however patient had SHANELL previously with IV contrast so would hold on Toradol at this time
-Check echo urgently
-Patient with no nonischemic cardiomyopathy with EF of 10%. Would add proBNP. Although patient does not appear to be acutely volume overloaded on examination
-If chest CT unremarkable and no improvement with colchicine and pain meds could consider abdominal imaging
-Of note patient was diagnosed with alpha gal syndrome during recent hospitalization which is a type of food allergy as a result of a tick bite and people are unable to breakdown certain proteins. GI symptoms as well as shortness of breath and
difficulty breathing could be side effect. Doubt this could be related to that. But would keep on differential
HPI 12/04/2024:
Patient is a 49-year-old male with past medical history significant for heart failure with reduced ejection fraction, nonischemic cardiomyopathy, nonobstructive coronary artery disease on catheterization October 2024, nonsustained ventricular
tachycardia, moderate MR, pulmonary hypertension, CKD, hepatomegaly with history of ascites, asthma, [place] spotted fever and history of tobacco and alcohol abuse. Patient had recent admission in 11/11/2024 with abdominal distention, lower
extremity edema, palpable adenopathy he was found to have significant ascites and peripheral edema. He was found to have a nonischemic cardiomyopathy with a EF of 10% and nonobstructive coronary artery disease on catheterization. He had moderate
MR and pulmonary hypertension on catheterization. Given his diffuse adenopathy had lymph node biopsy for concerns of cattleman's disease. Per review of records was also diagnosed with Alpha-gal syndrome. Patient was also seen in late October
with complaints of cellulitis of right foot and was placed on Keflex then started on Bactrim by primary doctor.
Presents 12/04/2024 with intermittent epigastric/chest discomfort for several days which has now become more persistent and severe in nature prompting him to seek emergency medical attention. Patient reports he develops a epigastric pain that is
sharp and when he takes a deep breath or tries to move it radiates upwards into his chest into his back and neck. He reports it is worse with taking deep breaths. He notes some mild associated nausea. Initial troponin negative. EKG shows sinus
rhythm with nonspecific T wave abnormality similar to prior tracings. D-dimer 1.28. Chest x-ray with low lung volumes and bibasilar atelectasis with possible small right effusion. Blood pressure low but appears to be his baseline compared to
prior blood pressures during recent admission. Given ongoing pain patient was given 3 doses of IV Dilaudid and IV acetaminophen with some improvement of symptoms. Also was provided colchicine. At time of this evaluation patient still
uncomfortable reporting epigastric discomfort radiating into the chest worse with taking deep breaths.
Data Reviewed
-
EKG: Report Reviewed by me, Discussed with Physician, Discussed with Nurse, Discussed with Patient and Discussed with Family
Radiology: Report Reviewed by me, Discussed with Physician, Discussed with Nurse, Discussed with Patient and Discussed with Family
Labs: Labs Reviewed by me, Discussed with Physician, Discussed with Nurse, Discussed with Patient and Discussed with Family
Old Records: Reviewed
--- NOTE | 2024-12-04 14:29 | HPS.HSE ---
Addendum entered and electronically signed by Armando Michel MD 12/04/24 16:54:
Correction, patient has not drunk alcohol since prior to previous admission.
Addendum entered and electronically signed by Armando Michel MD 12/04/24 16:50:
Patient drinks 4 beers per day. Alcohol withdrawal protocol started.
Original Note:
Family Physician
-
Family Physician: Jessica Sanders
Chief Complaint
-
chest pain
History of Present Illness
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
spotted fever, asthma, presenting for anterior chest pain for the past 3 days worse with deep breathing with shortness of breath. He cannot lie flat secondary to pain. He has chronic lower extremity edema which is stable. No weight gain.
He denies any cough or fevers or chills or upper respiratory symptoms.
Patient was recently admitted a few weeks ago for eczema, adenopathy, lower extremity edema and ascites. He was seen by ID with no recommendation for further antibiotics. Examination was consistent with heart failure. He was found to have
ejection fraction of 10%. He underwent left and right heart catheterization which did not show CAD to elevated left and right filling pressures. He was treated with diuretics and there was limitation for goal-directed medical therapy due to low
blood pressure.
He underwent lymph node biopsy of left inguinal node. He was followed by oncology and recommended outpatient follow-up.
Patient has not yet started Jardiance which she is supposed to start today. Lasix was increased by his business planning director from 20 mg twice a day to 30 mg twice a day.
He was apparently scheduled for a cardiac MRI which cannot be done within the next few months.
No longer smokes or drinks alcohol.
Medical History
Past Medical History
Past Medical History: Reports Other (nonischemic cardiomyopathy, HFrEF, CAD, NSVT, moderate mitral regurgitation, pulmonary hypertension, CKD, alpha gal syndrome, diffuse adenopathy with concern for Castleman's disease, history of [place]
spotted fever, asthma)
Past Surgical History: Reports Other (wisdom teeth))
Social History
Tobacco: Former Smoker
Alcohol: Former
Family History
Family History: Not pertinent
Allergies / Home Medications
Allergies reflects when Allergies were last updated in [facility].
Home Medications with original date entered in [facility]
Allergy/Medication List:
Allergies
Allergy/AdvReac Type Severity Reaction Status Date / Time
coconut oil Allergy Rash Verified 12/04/24 09:40
grass Allergy Rash Uncoded 12/04/24 09:40
pollen Allergy Rash Uncoded 12/04/24 09:40
Home Medications
albuterol sulfate 90 mcg/actuation aerosol inhaler 2 puff inhalation R Q6HPRN PRN sob 11/10/24
fluticasone 250 mcg-salmeterol 50 mcg/dose blistr powdr for inhalation 1 inh inhalation R QPM Lung/Breathing Issues 11/10/24
carvedilol 3.125 mg tablet 3.125 mg PO BID #60 tabs 11/19/24
furosemide 40 mg tablet 40 mg PO NOON #30 tabs 11/19/24
lisinopril 2.5 mg tablet 2.5 mg PO HS #30 tabs 11/19/24
cephalexin 500 mg tablet 500 mg PO QID 7 days #28 tabs 11/21/24
Review of Systems
-
History Source: Patient
A 12 point ROS was completed and negative except as noted: Yes
Constitutional: Reports No Symptoms
EENT: Reports No Symptoms
Respiratory: Reports See HPI
Cardiac: Reports See HPI
Abdomen/GI: Reports No Symptoms
: Reports No Symptoms
Musculoskeletal: Reports No Symptoms
Skin: Reports No Symptoms
Neurological: Reports No Symptoms
Endocrine: Reports No Symptoms
Hematologic/Lymphatic: Reports No Symptoms
Psych: Reports No Symptoms
Physical Exam
Vital Signs
Vital Signs
Temp Pulse Resp BP Pulse Ox
97.9 F 96 16 96/66 92
12/04/24 09:37 12/04/24 13:45 12/04/24 14:04 12/04/24 14:00 12/04/24 13:45
Physical Exam
General: Well Developed, Well Nourished and No Apparent Distress
HEENT: NormoCephalic, Moist mucous membranes and Atraumatic
Respiratory: Clear
Cardiac: S1/S2 and Regular Rhythm; No Murmur or Rub
GI: Soft, Non Tender, Non Distended and Normal Bowel Sounds; No Organomegaly
Rectal: Deferred by Provider
Musculoskeletal: No Clubbing, No Cyanosis and No Edema
Skin: No Rash
Neuro: Nonfocal/grossly intact
Laboratory Results
-
12/04/24 09:48
12/04/24 09:48
Laboratory Results
PT 15.4 Sec (11.4-14.6) H 12/04/24 11:18
INR 1.19 12/04/24 11:18
APTT 29.6 Sec (23.4-35.0) 12/04/24 11:18
Total Bilirubin 1.2 mg/dl (0.2-1.3) 12/04/24 09:48
AST 23 U/L (17-59) 12/04/24 09:48
ALT 30 U/L (0-50) 12/04/24 09:48
Alkaline Phosphatase 99 U/L (38-126) 12/04/24 09:48
Troponin I < 0.012 ng/ml 12/04/24 09:48
Data Reviewed
-
Lab Data: Labs Reviewed by me
Old Records: Reviewed
Impression/Plan
-
IMPRESSION:
PLAN:
# Acute pericarditis possibly idiopathic
-EKG shows normal sinus rhythm, prolonged QTc 496, nonspecific T wave changes
-Troponin negative
-Echo pending
-CT PE pending
-Colchicine started
-NSAID being held due to history of SHANELL in the past
-Dilaudid for pain
#Nonischemic dilated cardiomyopathy with LifeVest
#Chronic HFrEF
-Recent echo with EF of 10%, severe global left ventricular hypokinesis
-Systolic BP 90s which is acceptable
-Continue Lasix 30 mg twice daily
-Continue lisinopril
-Continue Coreg
-Jardiance has not been started yet supposed to start today, hold for now
Nonobstructive CAD
History of NSVT
Moderate mitral regurgitation
Pulmonary hypertension
CKD
Alpha gal syndrome
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
Asthma
History of [place] spotted fever
History of alcohol use
History of tobacco use
Full code
DVT prophylaxis�heparin
Cardiac diet
[2024-12-04 14:36] LABS: NT-proBNP 7300 pg/ml
[2024-12-04 16:33] LABS: Troponin I < 0.012 ng/ml
--- NOTE | 2024-12-04 16:41 | PTCARENOTE ---
12/04/24 Pt documented BP of 153/139 was an incorrect reading, it was taken again and was 99/71
--- NOTE | 2024-12-04 16:58 | PTCARENOTE ---
12/04/24 1530 Received patient from ER via stretcher. Pt transferred to bed without injury. Pt placed on registered nurse cardiac NSR-ST, afebrile. Pt denies any headache, dizziness, palpitations. Pt continues to have mid chest pain due to the pericarditis.
Pt received 0.5 mg IV dilaudid as ordered. VSS. On room air 97%.
[2024-12-04] MEDS: TORADOL 15 MG IV ×2 (17:22→23:37)
[2024-12-04] MEDS: HEPARIN 5000 UNITS SC (19:59)
[2024-12-04] MEDS: THIAMINE INJECTION 200 MG IV (19:59)
[2024-12-04] MEDS: COLCHICINE 0.3 MG PO (19:59)
[2024-12-04] MEDS: COREG 1.5625 MG PO (19:59)
--- NOTE | 2024-12-04 21:03 | PTCARENOTE ---
Patient received at change of shift resting in the bed. Patient on 2L NC, oxygen saturation 97%. Patient reports intermittent nausea, no vomiting, does not presently want any medication for nausea. Patient complains of midsternal chest pain, PRN
Dilaudid given, see MAR. Per patient pain fluctuates between a four to six but is improving. Sinus rhythm with sinus tachycardia on surveillance monitor. Patient voided 500mL of carly urine. MSAS being completed as ordered, see worklist. Plan of care
discussed with patient who verbalized understanding. Call tim within reach. Care ongoing.
[2024-12-04 22:08] LABS: Troponin I < 0.012 ng/ml
[2024-12-05] VITALS (13 sets, daily range): BP systolic 81–104; BP diastolic 59–74; BMI 29.7
[2024-12-05 03:46] LABS: % Basophils 0.5 % (0-2); % Eosinophils 0.8 % (0-6); % Immature Granulocytes 0.4 % (0-0.5); % Lymphocytes 21.5 % (20.5-51.1); % Neutrophils 65.8 % (42.2-75.2); Absolute Eosinophils 0.1 10^3/uL (0-0.7); Absolute Lymphocytes 1.7 10^3/uL (1.2-3.4); Absolute Monocytes 0.9 10^3/uL (0.1-0.6); Absolute Neutrophils 5.1 10^3/uL (1.4-6.5); Hematocrit 40.4 % (39.0-52.0); Hemoglobin 13.4 g/dL (13.0-18.0); Mean Corp Hgb Conc. 33.2 g/dL (33.0-37.0); Mean Corpuscular Hgb 30.4 pg (27.0-31.0); Mean Corpuscular Volume 91.6 fL (80.0-94.0); Mean Platelet Volume 10.7 fL (7.4-10.4); Nucleated Red Blood Cells % 0 % (-); Platelet Count 186 10^3/uL (130-400); Red Blood Cell Count 4.41 10^6/uL (4.70-6.10); Red Cell Dist. Width 13.9 % (11.5-14.5); White Blood Cell Count 7.8 10^3/uL (4.8-10.8)
[2024-12-05 04:05] LABS: Troponin I < 0.012 ng/ml
[2024-12-05 04:11] LABS: ALT (SGPT) 27 U/L (0-50); AST (SGOT) 22 U/L (17-59); Albumin 3.4 g/dl (3.5-5.0); Alkaline Phosphatase 89 U/L (38-126); Blood Urea Nitrogen 26 mg/dl (9-20); Calcium 8.5 mg/dl (8.4-10.2); Carbon Dioxide 24 mmol/L (22-30); Chloride 99 mmol/L (98-107); Estimated Creatinine Clearance 65 ml/min; Glucose 125 mg/dl (70-99); Potassium 4.6 mmol/L (3.5-5.1); Sodium 134 mmol/L (135-145); Total Bilirubin 1.4 mg/dl (0.2-1.3); Total Protein 6.1 g/dl (6.3-8.2); eGFR 56.37
[2024-12-05] MEDS: DILAUDID 0.5 MG IV ×3 (04:37→22:55)
[2024-12-05] MEDS: TORADOL 15 MG IV (06:26)
[2024-12-05] MEDS: FOLVITE 1 MG PO (07:47)
[2024-12-05] MEDS: HEPARIN 5000 UNITS SC ×2 (07:47→19:10)
[2024-12-05] MEDS: COLCHICINE 0.3 MG PO ×2 (07:48→19:10)
[2024-12-05] MEDS: COREG 1.5625 MG PO ×2 (07:48→19:10)
[2024-12-05] MEDS: THIAMINE INJECTION 200 MG IV ×2 (08:47→19:10)
--- NOTE | 2024-12-05 09:05 | W.PN.CARDCBS ---
Today's Communication / Plan
-
Try to limit diluted
Etiology of chest pain unclear as only Dilaudid relieves the pain
Echocardiogram without pericardial effusion
Follow creatinine closely which has increased to 1.5 possibly from CAT scan dye
Arrange outpatient follow-up at [facility] and look into getting MRI of heart for etiology of cardiomyopathy
Impression / Plan
-
PCP: Jessica Sanders
Tankman: Dr. Erickson
Impression:
Presents 12/04/2024 with complaints of epigastric and chest discomfort radiating upwards worse with inspiration and deep breaths
Elevated D-dimer
Concern for pericarditis
Chronic Heart failure with reduced ejection fraction
Nonischemic cardiomyopathy, EF 10%
Nonobstructive CAD on [facility] 11/16/2024
NSVT on [facility] 11/16/2024
Moderate mitral regurgitation
Pulmonary hypertension
CKD
Hepatomegaly
h/o Pleural effusion
Alpha-Gal syndrome
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
status post IR biopsy of left inguinal lymph node
Tobacco abuse
Daily alcohol use
History of [place] Spotted Fever
Asthma
Echo 11/11/2024: EF 10% with severe global hypokinesis. Moderately dilated left ventricle. Mild concentric LVH. Stage III DD. Moderate MR, mild to moderate TR, PAP 35 to 40 mmHg
LHC/RHC 11/16/2024: Elevated right/left ventricular filling pressures, normal coronary arteries; recommendation cease all alcohol, IV diuresis for elevated pressures.
Echocardiogram 12/04/2024: Ejection fraction 18%, severely dilated ventricle with global hypokinesis and septal akinesis, dilated and hypokinetic right ventricle with PA pressure of 33-38 mmHg, no pericardial effusion
Plan:
He is felt initially to have pericarditis. Of note he has only had relief with Dilaudid
Etiology of chest pain unclear and echocardiogram without pericardial effusion
Will try to limit Dilaudid and cut back from every 4 hours as needed to every 8 hours as needed and tried to use more Toradol
He has a lot of questions about outpatient follow-up
He was scheduled for an outpatient MRI and is trying to get it done as an inpatient
He inquires about getting seen at [facility]
He continues with abdominal pain which can be assessed by primary service
Creatinine is increased to 1.5. May need to consider holding Lasix. This could be from the CAT scan dye
HPI 12/04/2024:
Patient is a 49-year-old male with past medical history significant for heart failure with reduced ejection fraction, nonischemic cardiomyopathy, nonobstructive coronary artery disease on catheterization October 2024, nonsustained ventricular
tachycardia, moderate MR, pulmonary hypertension, CKD, hepatomegaly with history of ascites, asthma, [place] spotted fever and history of tobacco and alcohol abuse. Patient had recent admission in 11/11/2024 with abdominal distention, lower
extremity edema, palpable adenopathy he was found to have significant ascites and peripheral edema. He was found to have a nonischemic cardiomyopathy with a EF of 10% and nonobstructive coronary artery disease on catheterization. He had moderate
MR and pulmonary hypertension on catheterization. Given his diffuse adenopathy had lymph node biopsy for concerns of cattleman's disease. Per review of records was also diagnosed with Alpha-gal syndrome. Patient was also seen in late October
with complaints of cellulitis of right foot and was placed on Keflex then started on Bactrim by primary doctor.
Presents 12/04/2024 with intermittent epigastric/chest discomfort for several days which has now become more persistent and severe in nature prompting him to seek emergency medical attention. Patient reports he develops a epigastric pain that is
sharp and when he takes a deep breath or tries to move it radiates upwards into his chest into his back and neck. He reports it is worse with taking deep breaths. He notes some mild associated nausea. Initial troponin negative. EKG shows sinus
rhythm with nonspecific T wave abnormality similar to prior tracings. D-dimer 1.28. Chest x-ray with low lung volumes and bibasilar atelectasis with possible small right effusion. Blood pressure low but appears to be his baseline compared to
prior blood pressures during recent admission. Given ongoing pain patient was given 3 doses of IV Dilaudid and IV acetaminophen with some improvement of symptoms. Also was provided colchicine. At time of this evaluation patient still
uncomfortable reporting epigastric discomfort radiating into the chest worse with taking deep breaths.
Progress Note - Tankman
Subjective
Date of Service: December 05, 2024
Continues with chest discomfort that is relieved with Dilaudid
Objective
Labs:
12/05/24 03:22
12/05/24 03:22
Labs
Hgb 13.4 g/dL (13.0-18.0) 12/05/24 03:22
Hct 40.4 % (39.0-52.0) 12/05/24 03:22
Plt Count 186 10^3/uL (130-400) 12/05/24 03:22
PT 15.4 Sec (11.4-14.6) H 12/04/24 11:18
INR 1.19 12/04/24 11:18
APTT 29.6 Sec (23.4-35.0) 12/04/24 11:18
Sodium 134 mmol/L (135-145) L 12/05/24 03:22
Potassium 4.6 mmol/L (3.5-5.1) 12/05/24 03:22
BUN 26 mg/dl (9-20) H 12/05/24 03:22
Creatinine 1.5 mg/dL (0.7-1.3) H 12/05/24 03:22
Glucose 125 mg/dl (70-99) H 12/05/24 03:22
Troponins
12/04/24 12/04/24 12/04/24
09:48 15:50 21:37
Troponin I < 0.012 < 0.012 < 0.012
12/05/24
03:22
Troponin I < 0.012
Vital Signs and I&O:
Vital Signs
Temp Pulse Resp BP Pulse Ox
98.1 F 98 20 90/70 90
12/05/24 07:30 12/05/24 06:00 12/05/24 07:30 12/05/24 03:14 12/05/24 07:30
Vital Signs
Temp Pulse Resp BP Pulse Ox
98.1 F 98 20 90/70 90
12/05/24 07:30 12/05/24 06:00 12/05/24 07:30 12/05/24 03:14 12/05/24 07:30
Intake & Output
12/03/24 12/04/24 12/05/24 12/06/24
06:59 06:59 06:59 06:59
Intake Total 480 / 480
Output Total 500 / 500
Balance -20 / -20
Physical Exam
Physical Exam
General: Well developed, well nourished in NAD.
Neck: Supple, no JVD, HJR, carotids +2 B/L, no bruits bilaterally.
Heart: Non displaced PMI, RRR, no murmurs, No S3, S4, no rubs.
Lungs: Scattered rhonchi at the bases
Extremities: No clubbing, cyanosis or edema bilaterally.
Neuro: Grossly nonfocal, awake, alert and oriented x3.
[2024-12-05] MEDS: MIRALAX 17 GRAMS PO (13:53)
[2024-12-05] MEDS: PERCOCET 5/325 1 TABLET PO ×2 (14:26→19:52)
[2024-12-05] MEDS: LASIX 30 MG PO (16:50)
--- NOTE | 2024-12-05 16:55 | W.PN.HOSP.TC ---
Today's Communication/Plan
-
will adjust narcotic analgesics
Miralax scheduled and MOM prn constipation
await further input from cardio as to management of cardiomyopathy
Assessment / Plan
Assessment / Plan
# Acute pericarditis possibly idiopathic/possibly related to [place] Spotted Fever
-EKG shows normal sinus rhythm, prolonged QTc 496, nonspecific T wave changes
-Troponin negative
-Echo:1. Severely dilated left ventricle with global hypokinesis and septal
akinesis, ejection fraction 18%. Restrictive filling pattern stage III
diastolic dysfunction with restrictive filling
2. Thickened mitral leaflets with trace mitral regurgitation and dilated
aortic valve
3. Normal aortic valve
4. Dilated and hypokinetic right ventricle, dilated right atrium, pulmonary
artery systolic pressure 33-38 mmHg
5. No pericardial effusion
-CT chest: 1. No evidence of pulmonary embolism.
2. Small left and moderate right pleural effusions, stable.
3. Stable mild intrathoracic lymphadenopathy.
4. Mild upper abdominal ascites.
-Colchicine started
-NSAID being held due to history of SHANELL in the past
-Dilaudid for severe pain. Will start Percocet prn for moderate pain
#Nonischemic dilated cardiomyopathy with LifeVest
#Chronic HFrEF
-Recent echo with EF of 10%, severe global left ventricular hypokinesis
-Systolic BP 90s which is acceptable
-Continue Lasix 30 mg twice daily
-Continue lisinopril
-Continue Coreg
-Jardiance has not been started yet supposed to start today, hold for now
Await MRI of heart
Nonobstructive CAD
Constipation
most likely due to narcotic analgesic. Will order Miralax scheduled and MOM prn
History of NSVT
Moderate mitral regurgitation
Pulmonary hypertension
CKD
Alpha gal syndrome
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
Asthma
History of [place] spotted fever
History of alcohol use
History of tobacco use
reviewed with in room on 2nd visit
Full code
DVT prophylaxis�heparin
Cardiac diet
Anticipated Discharge: > 48 hours
Subjective/Interval History
-
Date of Service: December 05, 2024
Continues to require narcotic analgesic due to chest pain and is also c/o constipation
Objective Data
-
Vital Signs:
Vital Signs
Temp Pulse Resp BP Pulse Ox
97.9 F 89 20 104/73 99
12/05/24 14:43 12/05/24 16:00 12/05/24 14:43 12/05/24 14:46 12/05/24 14:45
I&O
12/04/24 12/05/24 12/06/24
06:59 06:59 06:59
Intake Total 480 / 480
Output Total 500 / 500
Balance -20 / -20
Review of Systems
-
History Source: Patient and Family (met with in room)
Constitutional: Denies Fever
EENT: Reports No Symptoms Reported
Cardiac: Reports Chest Pain (lower substernal, increases in intensity more with movement than with deep breaths)
Abdomen/GI: Reports Abdominal Pain (pain is located lower substernal/epigastric)
Physical Exam
-
General: Well Developed, Well Nourished and Pain
HEENT: Normocephalic, Atraumatic and Moist Mucous Membranes
Respiratory: Clear to Auscultation (on shallow respirations)
Cardiac: Regular Rhythm and S1/S2
GI: Soft, Nontender and Nondistended
Musculoskeletal: No Clubbing, No Cyanosis and No Edema
--- NOTE | 2024-12-05 17:55 | PTCARENOTE ---
12/05/2024 Received patient from previous shift laying in bed. Pt in NSR-ST, afebrile. On room air 96%. Pt's pain is better controlled today. IV Toradol discontinued, Percocet started, IV Dilaudid still PRN. Pt c/o constipation- made aware, Miralax
ordered and MOM PRN. Pt up walking around room. Pt with no complaints of n/v. Call tim within reach. Care ongoing.
--- NOTE | 2024-12-05 20:04 | PTCARENOTE ---
Patient received at change of shift resting comfortably in the bed. Endorses moderate sternal chest pain, see MAR for PRN medication administration. Patient denies N/V. Oxygen saturation 97% on room air. Sinus tachycardia to normal sinus rhythm on
photographer aerial. Plan of care discussed with patient. Call tim within reach. Care ongoing.
[2024-12-06] VITALS (8 sets, daily range): BP systolic 93–146; BP diastolic 64–126
[2024-12-06] MEDS: PERCOCET 5/325 1 TABLET PO ×3 (00:07→19:39)
[2024-12-06] MEDS: MILK OF MAGNESIA 30 ML PO (00:08)
[2024-12-06 04:44] LABS: Blood Urea Nitrogen 32 mg/dl (9-20); Calcium 8.6 mg/dl (8.4-10.2); Carbon Dioxide 29 mmol/L (22-30); Chloride 96 mmol/L (98-107); Estimated Creatinine Clearance 69 ml/min; Glucose 100 mg/dl (70-99); Potassium 5.2 mmol/L (3.5-5.1); Sodium 134 mmol/L (135-145); eGFR > 60.00
[2024-12-06] MEDS: MIRALAX 17 GRAMS PO (08:34)
[2024-12-06] MEDS: COREG 1.5625 MG PO ×2 (08:35→19:41)
[2024-12-06] MEDS: THIAMINE INJECTION 200 MG IV ×2 (08:35→19:42)
[2024-12-06] MEDS: HEPARIN 5000 UNITS SC ×2 (08:35→19:42)
[2024-12-06] MEDS: LASIX 30 MG PO ×2 (08:36→15:42)
[2024-12-06] MEDS: COLCHICINE 0.3 MG PO ×2 (08:37→19:40)
[2024-12-06] MEDS: FOLVITE 1 MG PO (08:37)
[2024-12-06] MEDS: FLUSH (NSS) 1 FLUSH IV ×2 (08:40→15:45)
--- NOTE | 2024-12-06 08:58 | W.PN.CARDCBS ---
Addendum entered and electronically signed by Ramu Dougherty MD 12/06/24 18:18:
Patient reports that his chest discomfort is down to 3 out of 10, on presentation was a '12.'. His mom is at bedside.
Current medications: Carvedilol 1.5625 twice daily, colchicine 0.3 mg twice daily, folic acid, furosemide 30 mL a bit grams by mouth twice daily, subcu heparin, Dilaudid as needed, Ativan, magnesium hydroxide, oxycodone, MiraLAX,
110/78, pulse 94, no distress, diminished breath sounds right greater than left base, regular rate and rhythm, no obvious murmurs, trace to 1+ edema JVD not dramatically elevated, No rub, was clearly apparent on exam at admission
Potassium is 5.2, BUN/creatinine are 32 and 1.4
Impression:
Pericarditis, improved on colchicine
Chronic HFpEF
Nonischemic cardiomyopathy, EF 18%
Nonobstructive CAD
CKD stage III
Abdominal discomfort
Alpha gal syndrome
History of adenopathy
Alcohol use
Tobacco abuse
History of [place] spotted fever
Plan:
Patient seems largely unchanged from a heart failure standpoint. He is only on a very low-dose of the beta-shelly. Systolic blood pressure typically in the 90s.
He is relatively tachycardic. Would be in favor of initiation of ivabradine therapy, start 5 mg twice daily, we will begin prior authorization through our office.
Okay to proceed with endoscopic evaluation tomorrow from cardiac standpoint
His pericardial pain seems improved. Continue colchicine at 0.3 mg twice daily. There is a carvedilol-colchicine interaction so probably best not to push colchicine higher.
Original Note:
Today's Communication / Plan
-
Pain control per primary service
Consider increasing Colchicine to 0.6 mg BID
T/c abdominal imaging
Impression / Plan
-
PCP: Jessica Sanders
[employer]: Dr. Erickson
Impression:
Presents 12/04/2024 with complaints of epigastric and chest discomfort radiating upwards worse with inspiration and deep breaths
Elevated D-dimer
Concern for pericarditis
Chronic Heart failure with reduced ejection fraction
Nonischemic cardiomyopathy, EF 18%
Nonobstructive CAD on [facility] 11/16/2024
NSVT on [facility] 11/16/2024
Pulmonary hypertension
CKD
Hepatomegaly
h/o Pleural effusion
Alpha-Gal syndrome
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
status post IR biopsy of left inguinal lymph node
Tobacco abuse
Daily alcohol use
History of [place] Spotted Fever
Asthma
Echo 11/11/2024: EF 10% with severe global hypokinesis. Moderately dilated left ventricle. Mild concentric LVH. Stage III DD. Moderate MR, mild to moderate TR, PAP 35 to 40 mmHg
[facility] 11/16/2024: Elevated right/left ventricular filling pressures, normal coronary arteries; recommendation cease all alcohol, IV diuresis for elevated pressures.
Echocardiogram 12/04/2024: Ejection fraction 18%, severely dilated ventricle with global hypokinesis and septal akinesis, dilated and hypokinetic right ventricle with PA pressure of 33-38 mmHg, no pericardial effusion
Plan:
-Presented 12/04/2024 with complaints of epigastric and chest discomfort radiating upwards worse with inspiration and deep breaths which started several days [employer] but has increased in frequency and intensity.
-Troponin x 4 undetectable. Patient had no obstructive coronary artery disease on cardiac catheterization in October 2024. CT of chest negative for PE, dissection or pericardial effusion.
-Echocardiogram 12/04/2024 showed EF of 18% with improved MR which is now trace. There was no evidence of pericardial effusion.
-Patient continues to have pain, although better and has been getting frequent narcotics initially IV Dilaudid now on Percocet.
-Patient being treated for presumed pericarditis unknown etiology. Now on colchicine 0.3 mg BID. Creat clearance >90. Would consider increasing dose to 0.6 mg BID
-Continues to complain of epigastric/substernal chest discomfort, abdominal bloating. He was able to have bowel movement today. Discussed with hospitalist about possible imaging of abdomen to rule out GI cause of ongoing symptoms
-Patient with none nonischemic cardiomyopathy with EF of 10%, now improved to 18%. proBNP 7300. Although patient does not appear to be acutely volume overloaded on examination. Ongoing diuresis with Lasix 30 mg BID.
-Creatinine 1.4. Was 1.5. Suspect creat is from the CT scan dye. Continue to monitor and trend
-He was scheduled for an outpatient MRI. Not sure if he can lye flat at this time for inpt MRI. Discussed he can wait for outpt MRI and he is agreeable
-Hypotension has limited up titration of GDMT. Continue carvedilol. Could consider addition of SGLT2 inhibitor. However at admission several weeks ago this was cost prohibitive. Our office as outpt was working on authorization for cost coverage
for Farxiga. If creat stable over next 24 hours would start Farxiga 10 mg with in next 24 hours
Plan discussed with patient, nursing and hospitalist Dr. Cleveland
HPI 12/04/2024:
Patient is a 49-year-old male with past medical history significant for heart failure with reduced ejection fraction, nonischemic cardiomyopathy, nonobstructive coronary artery disease on catheterization October 2024, nonsustained ventricular
tachycardia, moderate MR, pulmonary hypertension, CKD, hepatomegaly with history of ascites, asthma, [place] spotted fever and history of tobacco and alcohol abuse. Patient had recent admission in 11/11/2024 with abdominal distention, lower
extremity edema, palpable adenopathy he was found to have significant ascites and peripheral edema. He was found to have a nonischemic cardiomyopathy with a EF of 10% and nonobstructive coronary artery disease on catheterization. He had moderate
MR and pulmonary hypertension on catheterization. Given his diffuse adenopathy had lymph node biopsy for concerns of cattleman's disease. Per review of records was also diagnosed with Alpha-gal syndrome. Patient was also seen in late October
with complaints of cellulitis of right foot and was placed on Keflex then started on Bactrim by primary doctor.
Presents 12/04/2024 with intermittent epigastric/chest discomfort for several days which has now become more persistent and severe in nature prompting him to seek emergency medical attention. Patient reports he develops a epigastric pain that is
sharp and when he takes a deep breath or tries to move it radiates upwards into his chest into his back and neck. He reports it is worse with taking deep breaths. He notes some mild associated nausea. Initial troponin negative. EKG shows sinus
rhythm with nonspecific T wave abnormality similar to prior tracings. D-dimer 1.28. Chest x-ray with low lung volumes and bibasilar atelectasis with possible small right effusion. Blood pressure low but appears to be his baseline compared to
prior blood pressures during recent admission. Given ongoing pain patient was given 3 doses of IV Dilaudid and IV acetaminophen with some improvement of symptoms. Also was provided colchicine. At time of this evaluation patient still
uncomfortable reporting epigastric discomfort radiating into the chest worse with taking deep breaths.
Progress Note - [employer]
Subjective
Date of Service: December 06, 2024
Patient seen and examined today. Patient overall reports some improvement of pain but not resolved. Still feels abdominal bloating, epigastric discomfort that radiates upward. Worse with laying down. Was able to have bowel movement today
Objective
Labs:
12/05/24 03:22
12/06/24 03:19
Labs
Hgb 13.4 g/dL (13.0-18.0) 12/05/24 03:22
Hct 40.4 % (39.0-52.0) 12/05/24 03:22
Plt Count 186 10^3/uL (130-400) 12/05/24 03:22
PT 15.4 Sec (11.4-14.6) H 12/04/24 11:18
INR 1.19 12/04/24 11:18
APTT 29.6 Sec (23.4-35.0) 12/04/24 11:18
Sodium 134 mmol/L (135-145) L 12/06/24 03:19
Potassium 5.2 mmol/L (3.5-5.1) H 12/06/24 03:19
BUN 32 mg/dl (9-20) H 12/06/24 03:19
Creatinine 1.4 mg/dL (0.7-1.3) H 12/06/24 03:19
Glucose 100 mg/dl (70-99) H 12/06/24 03:19
Troponins
12/04/24 12/04/24 12/04/24
09:48 15:50 21:37
Troponin I < 0.012 < 0.012 < 0.012
12/05/24 12/05/24
03:22 09:25
Troponin I < 0.012 Cancelled
Vital Signs and I&O:
Vital Signs
Temp Pulse Resp BP Pulse Ox
98.2 F 94 18 93/64 98
12/06/24 08:29 12/06/24 08:36 12/06/24 08:29 12/06/24 08:36 12/06/24 08:29
Vital Signs
Temp Pulse Resp BP Pulse Ox
98.2 F 94 18 93/64 98
12/06/24 08:29 12/06/24 08:36 12/06/24 08:29 12/06/24 08:36 12/06/24 08:29
Intake & Output
12/04/24 12/05/24 12/06/24 12/07/24
06:59 06:59 06:59 06:59
Intake Total 480 / 480 480 / 480
Output Total 500 / 500
Balance -20 / -20 480 / 480
Physical Exam
Physical Exam
GEN: No distress, awake, Ox3
HEENT: supple, anicteric, mmm
LUNGS: Few scattered crackles at bases otherwise CTA, no wheezes/rales
CV: Reg, S1/S2, 1/6 syst murmur at apex, +pericardial rub
ABD: soft, BS+, NT/ND
EXT: No edema, clubbing or cyanosis
NEURO: Gross non-focal
SKIN: No rash, warm, dry, pink
--- NOTE | 2024-12-06 09:59 | W.PN.HOSP.TC ---
Today's Communication/Plan
-
Consult GI
Assessment / Plan
Assessment / Plan
#Epigastric pressure/fullness/pain
Consult GI
# Acute pericarditis ruled out
-EKG shows normal sinus rhythm, prolonged QTc 496, nonspecific T wave changes
-Troponin negative
-Echo:1. Severely dilated left ventricle with global hypokinesis and septal
akinesis, ejection fraction 18%. Restrictive filling pattern stage III
diastolic dysfunction with restrictive filling
2. Thickened mitral leaflets with trace mitral regurgitation and dilated
aortic valve
3. Normal aortic valve
4. Dilated and hypokinetic right ventricle, dilated right atrium, pulmonary
artery systolic pressure 33-38 mmHg
5. No pericardial effusion
-CT chest: 1. No evidence of pulmonary embolism.
2. Small left and moderate right pleural effusions, stable.
3. Stable mild intrathoracic lymphadenopathy.
4. Mild upper abdominal ascites.
-Colchicine started
-NSAID being held due to history of SHANELL in the past
-Dilaudid for severe pain. Will start Percocet prn for moderate pain
#Nonischemic dilated cardiomyopathy with LifeVest
#Chronic HFrEF
-Recent echo with EF of 10%, severe global left ventricular hypokinesis
-Systolic BP 90s which is acceptable
-Continue Lasix 30 mg twice daily
-Continue lisinopril
-Continue Coreg
-Jardiance has not been started yet
Nonobstructive CAD
Constipation
most likely due to narcotic analgesic. Will order Miralax scheduled and MOM prn
History of NSVT
Moderate mitral regurgitation
Pulmonary hypertension
CKD
Alpha gal syndrome
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
Asthma
History of [place] spotted fever
History of alcohol use
History of tobacco use
DVT prophylaxis�SCDs
Full code
Updated on phone 12/06
Total time spent to see the patient on the floor, examine the patient, review data and lab results, discuss treatment plan with patient, nursing staff around 51 minutes.
Physical Exam
General: Obese, no acute distress
HEENT: Normocephalic, Atraumatic, EOMI, MMM
Respiratory: Clear to Auscultation bilaterally
Cardiac: Normal S1/S2, Regular Rate and Rhythm
GI: Soft, Nontender, Nondistended, Normal Bowel Sounds
Extremities: No Clubbing, Cyanosis, or Edema
Neuro: Nonfocal/Grossly Intact
Psych: Calm, Cooperative
Derm: No Visible lesions
Anticipated Discharge: 24 - 48 hours
Subjective/Interval History
-
Date of Service: December 06, 2024
Patient complains of epigastric pressure and fullness. Denies nausea, vomiting. No fever.
Objective Data
-
Labs:
Laboratory Results
12/06/24
03:19
Sodium 134 L
Potassium 5.2 H
Chloride 96 L
Carbon Dioxide 29
BUN 32 H
Creatinine 1.4 H
Glucose 100 H
Calcium 8.6
Vital Signs:
Vital Signs
Temp Pulse Resp BP Pulse Ox
98.2 F 92 18 93/64 98
12/06/24 08:29 12/06/24 09:00 12/06/24 08:29 12/06/24 08:36 12/06/24 08:30
I&O
12/05/24 12/06/24 12/07/24
06:59 06:59 06:59
Intake Total 480 / 480 480 / 480
Output Total 500 / 500
Balance -20 / -20 480 / 480
--- NOTE | 2024-12-06 10:02 | PTCARENOTE ---
received patient this am in bed watching TV. very pleasant, cooperative. patient continues to c/o upper abd. region discomfort, Percocet po given as per patients request. monitor shows NSR, BP 93/64. INT. right ant. flushes well. patient c/o
constipation, miralax po given. +1 LE edema, weak pulses.
--- NOTE | 2024-12-06 12:45 | CON.GI ---
Addendum entered and electronically signed by Dorinda Adler DO 12/06/24 16:25:
The patient was seen and examined by me independently in collaboration with the nurse practitioner.
Past medical history/social history/medications/allergies/family history reviewed.
Lab data and imaging data reviewed.
49-year-old male with past medical history of asthma, eczema, tobacco abuse, alcohol abuse for entheses case of beer a week, abstinent since last hospitalization), possible mild Crohn's disease (diagnosed 2011, although has not seen GI since 2014
was placed on 'pills and a suppository'), hyperplastic colon polyps, [place] spotted fever symptoms starting in 2018 however not treated until 2020 at which time he took doxy and prednisone and intermittently canine doxy during 2020 and 2021
Of note, he was recently admitted last month with complicated hospitalization, new onset HFrEF (EF 10%), NICM, nonobstructive CAD, SVT with lifevest, moderate MR, pulmonary HTN, CKD, lymphadenopathy with small amount of ascites, dx with alphga gal
syndrome. He had lymph node biopsy that was nondiagnostic. He had a recent skin biopsy which was also nondiagnostic. 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 GI is consulted for complaints of epigastric pain with radiation to his chest and neck with PO
and dysphagia. He reports these symptoms started in October. He denies regurgitation of food, nausea or vomiting. Mother at bedside during evaluation, reports he had a milk allergy as a child as well as issues with eczema, but grew out of it until
recent issues. No prior EGD or Colonoscopy.
A/P:
Puzzling patient with multisystem organ involvement with unclear etiology. Broad ddx for his dysphagia including EoE vs. erosive esophagitis vs pill esophagitis vs. ulcer vs. stricture vs. diverticulum vs. web vs. extrinsic compression from
lymphadenopathy vs. malignancy vs. esophageal dysmotility
Trial of PPI
Recommend proceeding with EGD tomorrow, patient agreeable
Original Note:
Consultation
-
Date/Time Consultation Requested: 12/06/24 1118
Date/Time Consultation Performed: 12/06/24 1245
Requesting Provider: Dr. Cleveland
Performing Provider: Dr. Adler/DANNIELLE Bolden
Reason for Consultation: epigastric/abd pain/pressure
Medical History
Chief Complaint / HPI
Chief Complaint: epigastric chest discomfort
History of Present Illness:
49-year-old male with past medical history of asthma, eczema, tobacco abuse (1 pack/day), alcohol abuse for entheses case of beer a week, abstinent since last hospitalization), possible mild Crohn's disease (diagnosed 2011, although has not seen GI
since 2015 was placed on 'pills and a suppository'), hyperplastic colon polyps, [place] spotted fever symptoms starting in 2018 however not treated until 2020 with doxycycline and prednisone for 10 days but then subsequently took his dogs
doxycycline intermittently in 2020 and 2021, lower extremity edema treated intermittently with prednisone by PCP, recently admitted in October 2024 for heart failure with reduced ejection fraction 10%, nonischemic cardiomyopathy, nonobstructive
CAD, and SVT with outpatient LifeVest, moderate MR, pulmonary hypertension, CKD, hepatomegaly, ascites, lymphadenopathy status post lymph node biopsy, alpha gal syndrome diagnosed in October (patient states he is now adherent with diet) right foot
cellulitis status posttreatment, right pleural effusion who presents to the emergency room with epigastric/chest discomfort/pressure. We are asked to evaluate for the same. The patient states that for the past month he has had a pain/pressure in
the epigastric area. He states that this is intermittent, dull, worse with lying down, better with sitting up. When he lies down he has intermittent discomfort that radiates up through his neck into his head that is a pressure-like sensation. He
also has issues where when he eats he feels that foods will get stuck in the mid chest area. This can be solid or liquid. If it is liquid he feels that it 'swishes around' it eventually passes. This can happen with solids as well. After a few
minutes it eventually passes. When he has a sensation he just waits for it to pass and then he moves along. He never has episodes where he builds the food up in the esophagus and regurgitates. He never needs to force regurgitate. He does not
experience any reflux or heartburn. He does have belching which can improve the symptoms. He does not take any NSAIDs at home. He did stop drinking alcohol at the time of last admission. He uses Tylenol for discomfort from cellulitis. He has
never had an endoscopy before. He does have 2 small ulcers on the side of his tongue. He does have a history of having a milk allergy as a child per his mother. She was not able to give him milk. He had to take soy products. Patient states he
was also told he had an orange allergy. He does have a bag of clementines at his bedside. Patient states he also has history of constipation more recently. States he needs medication in order to produce bowel movement as of late. He denies any
fevers, chills, nausea, vomiting, melena, hematochezia, odynophagia, early satiety or unintentional weight loss. He states he is actually gained weight from water retention.
Past Medical History
Past Medical History: Other (Alpha-gal syndrome, asthma, eczema, Puk[place]ani spotted fever, ETOH abuse, tobacco abuse, non obstructive CAD, NICM EF 10% pleural effusions, moderate MR and pulmonary hypertension, lower extremity edema, NSVT , SHANELL,
Adenopathy, Castleman's disease, right foot cellulitis, colon polyps )
Past Surgical History: Other (left inguinal lymph node bx, bilateral shoulder surgeries, right hand surgery, ORIF right ankle/foot, wisdom teeth extraction)
Social History
Tobacco: Smoker
Alcohol: Daily (4 daily)
Personal:
Living: With Family
Employment: Employed
Family History
Family History: Other (Family history gastrointestinal malignancy or IBD)
Allergies / Home Medications
Allergy/AdvReac Type Severity Reaction Status Date / Time
coconut oil Allergy Rash Verified 12/04/24 09:40
grass Allergy Rash Uncoded 12/04/24 09:40
pollen Allergy Rash Uncoded 12/04/24 09:40
�Medication �Instructions �Recorded
albuterol sulfate 90 mcg/actuation 2 puff inhalation R Q6HPRN PRN sob 11/10/24
aerosol inhaler
fluticasone 250 mcg-salmeterol 50 1 inh inhalation R QPM 11/10/24
mcg/dose blistr powdr for Lung/Breathing Issues
inhalation
carvedilol 3.125 mg tablet 1.5625 mg PO BID Heart 12/05/24
Disease/Condition
furosemide 40 mg tablet 40 mg PO NOON Fluid 12/06/24
Retention/Swelling
lisinopril 2.5 mg tablet 2.5 mg PO HS Blood Pressure 12/06/24
Review of Systems
-
All other systems: A 12 pt ROS was Negative except as stated above in HPI
Vital Signs
Temp Pulse Resp BP Pulse Ox
97.6 F 105 18 93/72 97
12/06/24 11:32 12/06/24 12:00 12/06/24 11:32 12/06/24 11:32 12/06/24 11:32
Physical Exam
Exam
General: No Apparent Distress
HEENT: Anicteric
Respiratory: Clear (Decreased right base)
Cardiac: Regular Rhythm
GI: Soft, Non Tender, Non Distended and Normal Bowel Sounds
Musculoskeletal: Edema (+2 edema to mid coffey bilaterally)
Skin: Warm, Dry and Other (Weathered appearing skin, dry leathery, few spider angiomata nasal bridge)
Neuro: AO x 3
Psych: Calm
Results
WBC 7.8 10^3/uL (4.8-10.8) 12/05/24 03:22
Hgb 13.4 g/dL (13.0-18.0) 12/05/24 03:22
Hct 40.4 % (39.0-52.0) 12/05/24 03:22
MCV 91.6 fL (80.0-94.0) 12/05/24 03:22
Plt Count 186 10^3/uL (130-400) 12/05/24 03:22
Absolute Neuts (auto) 5.1 10^3/uL (1.4-6.5) 12/05/24 03:22
PT 15.4 Sec (11.4-14.6) H 12/04/24 11:18
INR 1.19 12/04/24 11:18
APTT 29.6 Sec (23.4-35.0) 12/04/24 11:18
Sodium 134 mmol/L (135-145) L 12/06/24 03:19
Potassium 5.2 mmol/L (3.5-5.1) H 12/06/24 03:19
Chloride 96 mmol/L (98-107) L 12/06/24 03:19
Carbon Dioxide 29 mmol/L (22-30) 12/06/24 03:19
BUN 32 mg/dl (9-20) H 12/06/24 03:19
Creatinine 1.4 mg/dL (0.7-1.3) H 12/06/24 03:19
Calcium 8.6 mg/dl (8.4-10.2) 12/06/24 03:19
Total Bilirubin 1.4 mg/dl (0.2-1.3) H 12/05/24 03:22
AST 22 U/L (17-59) 12/05/24 03:22
ALT 27 U/L (0-50) 12/05/24 03:22
Alkaline Phosphatase 89 U/L (38-126) 12/05/24 03:22
Diagnostic Image Results:
CT Chest PE 12/04/24:
IMPRESSION:
1. No evidence of pulmonary embolism.
2. Small left and moderate right pleural effusions, stable.
3. Stable mild intrathoracic lymphadenopathy.
4. Mild upper abdominal ascites.
CXR 12/04/24:
IMPRESSION: Low lung volumes and bibasilar atelectasis. Question small right effusion. Unchanged cardiomegaly.
CT PE abdomen pelvis with 11/10/2024:
IMPRESSION:
No pulmonary embolism.
Mild to moderate cardiac enlargement.
Moderate and mild left pleural effusion. Adjacent pulmonary parenchymal consolidation, right greater than left, atelectasis versus pneumonia.
Mild hepatomegaly.
Mild ascites.
No obstructive uropathy.
No bowel obstruction. Minor colonic fecal burden.
Mild hilar, axillary, external iliac, and inguinal adenopathy.
No mass or extrinsic compression of the inferior vena cava or iliac vessels.
Electronically signed by Baljinder Reza MD, 11/10/2024 10:41 PM
Prior GI Procedures:
EGD: Never
Colonoscopy 09/04/2015 (Dr. Delong) - Two polyps in the sigmoid colon. Resected and
retrieved.
- One 5 mm polyp at the splenic flexure. Resected and
retrieved.
- Erythematous mucosa at the appendiceal orifice.
Biopsied.
- Localized mild inflammation was found in the ascending
colon. Biopsied.
- The examined portion of the ileum was normal.
- Several biopsies were obtained in the rectum, in the
sigmoid colon, in the descending colon, at the splenic
flexure, in the transverse colon, at the hepatic
flexure, in the ascending colon an
Colonoscopy: 01/07/2012 (Dr. Crane) - Preparation of the colon was fair.
- Patchy mild inflammation was found in the distal
rectum, in the proximal ascending colon and at the
appendiceal orifice secondary to colitis. This was
biopsied.
- One 6 mm polyp in the mid rectum. Resected and
retrieved.
- Two 2 to 4 mm polyps in the rectum. Resected and
retrieved.
- Nodular ileal mucosa. This was biopsied.
- Normal mucosa sigmoid colon, descending colon, splenic
flexure, transverse colon and hepatic flexure. This was
biopsied.
Assessment / Plan
-
49-year-old male with past medical history of asthma, eczema, tobacco abuse (1 pack/day), alcohol abuse for entheses case of beer a week, abstinent since last hospitalization), possible mild Crohn's disease (diagnosed 2011, although has not seen GI
since 2015 was placed on 'pills and a suppository'), hyperplastic colon polyps, Pukalani spotted fever symptoms starting in 2018 however not treated until 2020 with doxycycline and prednisone for 10 days but then subsequently took his dogs
doxycycline intermittently in 2020 and 2021, lower extremity edema treated intermittently with prednisone by PCP, recently admitted in October 2024 for heart failure with reduced ejection fraction 10%, nonischemic cardiomyopathy, nonobstructive
CAD, and SVT with outpatient LifeVest, moderate MR, pulmonary hypertension, CKD, hepatomegaly, ascites, lymphadenopathy status post lymph node biopsy, alpha gal syndrome diagnosed in October (patient states he is now adherent with diet) right foot
cellulitis status posttreatment, right pleural effusion who presents to the emergency room with epigastric/chest discomfort/pressure. We are asked to evaluate for the same. WBC 7.8, hemoglobin 13.4, hematocrit 40.4, MCV 91.6, MCH 30.4, platelets
186,PT 15.4, INR 1.19, D-dimer 1.28, sodium 134, potassium 5.2, BUN 32, creatinine 1.4, glucose 100, total bilirubin 1.4, AST 22, ALT 27, alk phos 89.
Impression:
Epigastric pain/chest pressure
-Patient has been evaluated by cardiology
-Associated issues with dysphagia, new since October
Dysphagia
Constipation
Heart failure with reduced ejection fraction
NSVT
Right pleural effusion
Ascites
CKD
Right pleural effusion
Alpha gal syndrome
Diffuse adenopathy
Alcohol abuse(abstinent since last admission)
Tobacco abuse
Possible Crohn's disease (has not seen GI since 2014)
Plan:
-EGD tomorrow to evaluate for dysphagia
-To consider paracentesis or thoracentesis sampling
-Recommend outpatient follow-up with GI for colonoscopy when medically optimized
-Continue bowel regimen
-Further recommendations to be forthcoming
-
-
Thank you for consultation and allowing me to participate in the patient's care. Please call the internal combustion engine assembler GI physician during the after hours with any questions or concerns.
[2024-12-06] MEDS: DILAUDID 0.5 MG IV ×2 (15:43→23:42)
--- NOTE | 2024-12-06 15:46 | CM ---
spoke to pt in room, he is prev indep, lives with his in a 1 story home with 3 steps to enter. he applied for medical assist last admission and has not heard if he qualified. [facility] on pts behalf. plan is for dc to home when
medically stable.
--- NOTE | 2024-12-06 15:48 | PTCARENOTE ---
patient called out c/o pain in upper abd. requested Dilaudid, given as ordered.
[2024-12-07] VITALS (15 sets, daily range): BP systolic 30–129; BP diastolic 71–112; BMI 29.9
[2024-12-07 05:05] LABS: Hematocrit 40.5 % (39.0-52.0); Hemoglobin 13.5 g/dL (13.0-18.0); Mean Corp Hgb Conc. 33.3 g/dL (33.0-37.0); Mean Corpuscular Hgb 30.3 pg (27.0-31.0); Mean Corpuscular Volume 90.8 fL (80.0-94.0); Mean Platelet Volume 10.7 fL (7.4-10.4); Platelet Count 212 10^3/uL (130-400); Red Blood Cell Count 4.46 10^6/uL (4.70-6.10); Red Cell Dist. Width 13.8 % (11.5-14.5)
[2024-12-07 05:31] LABS: Blood Urea Nitrogen 29 mg/dl (9-20); Calcium 8.5 mg/dl (8.4-10.2); Carbon Dioxide 25 mmol/L (22-30); Chloride 98 mmol/L (98-107); Estimated Creatinine Clearance 81 ml/min; Glucose 94 mg/dl (70-99); Potassium 4.5 mmol/L (3.5-5.1); Sodium 132 mmol/L (135-145); eGFR > 60.00
--- NOTE | 2024-12-07 07:03 | PTCARENOTE ---
NSR on monitor. c/o mild mid chest pain. PRN meds given and effective. Pt ambulates independently. NPO for EGD
--- NOTE | 2024-12-07 09:21 | PTCARENOTE ---
received patient this am sleeping in bed, easily aroused. patient remains NPO for EGD this am. report called to GI lab.
--- NOTE | 2024-12-07 09:22 | W.PN.HOSP.TC ---
Addendum entered and electronically signed by Bj Cleveland MD 12/07/24 16:41:
Discussed with cardiology, who wishes patient to continue colchicine for 6 weeks.
Original Note:
Today's Communication/Plan
-
Consult hematology
Assessment / Plan
Assessment / Plan
#Epigastric pressure/fullness/pain
#Gastritis
12/07 EGD shows gastritis, extrinsic compression of the mid esophagus, biopsies taken
GI recommends Protonix 40 mg p.o. daily, outpatient follow-up for possible manometry
#Intrathoracic lymphadenopathy
12/04 CT shows stable mild intrathoracic lymphadenopathy, recent biopsy shows it is reactive, negative for malignancy
Consult hematology/oncology as per request
# Acute pericarditis ruled out
-Appreciate cardiology input, echo not suggestive of pericarditis
-Recommend outpatient cardiac MRI
-Discontinue colchicine
-NSAID being held due to history of SHANELL in the past
#Insomnia
Start melatonin 10 mg and hydroxyzine 50 mg at bedtime
#Constipation
Most likely due to narcotic analgesic. Continue laxatives
#Nonischemic dilated cardiomyopathy with LifeVest
#Chronic HFrEF
-Recent echo with EF of 10%, severe global left ventricular hypokinesis
-Systolic BP 90s which is acceptable
-Continue Lasix 30 mg twice daily
-Continue lisinopril
-Continue Coreg
-Jardiance has not been started yet
Nonobstructive CAD
History of NSVT
Moderate mitral regurgitation
Pulmonary hypertension
CKD
Alpha gal syndrome
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
Asthma
History of [place] spotted fever
History of alcohol use
History of tobacco use
DVT prophylaxis�SCDs secondary to alpha-gal syndrome
Full code
Updated on phone 12/07
Total time spent to see the patient on the floor, examine the patient, review data and lab results, discuss treatment plan with patient, nursing staff around 52 minutes.
Physical Exam
General: Obese, no acute distress
HEENT: Normocephalic, Atraumatic, EOMI, MMM
Respiratory: Clear to Auscultation bilaterally
Cardiac: Normal S1/S2, Regular Rate and Rhythm
GI: Soft, Nontender, Nondistended, Normal Bowel Sounds
Extremities: No Clubbing, Cyanosis, or Edema
Neuro: Nonfocal/Grossly Intact
Psych: Calm, Cooperative
Derm: No Visible lesions
Anticipated Discharge: 24 - 48 hours
Subjective/Interval History
-
Date of Service: December 07, 2024
Abd pain improved. No fever. No shortness of breath, no vomiting.
Objective Data
-
Labs:
Laboratory Results
12/07/24
04:39
WBC 7.0
Hgb 13.5
Hct 40.5
Plt Count 212
Sodium 132 L
Potassium 4.5
Chloride 98
Carbon Dioxide 25
BUN 29 H
Creatinine 1.2
Glucose 94
Calcium 8.5
Vital Signs:
Vital Signs
Temp Pulse Resp BP Pulse Ox
97.9 F 85 16 93/71 94
12/07/24 07:48 12/07/24 08:00 12/07/24 07:48 12/07/24 07:49 12/07/24 07:48
I&O
12/06/24 12/07/24 12/08/24
06:59 06:59 06:59
Intake Total 480 / 480 730 / 730
Output Total 800 / 800
Balance 480 / 480 -70 / -70
[2024-12-07] MEDS: HEPARIN SC (10:56)
[2024-12-07] MEDS: COLCHICINE 0.3 MG PO ×2 (11:10→20:12)
[2024-12-07] MEDS: LASIX 30 MG PO ×2 (11:11→15:51)
[2024-12-07] MEDS: COREG 1.5625 MG PO ×2 (11:12→20:13)
[2024-12-07] MEDS: FOLVITE 1 MG PO (11:12)
[2024-12-07] MEDS: THIAMINE INJECTION 200 MG IV (11:13)
[2024-12-07] MEDS: MIRALAX PO (11:14)
--- NOTE | 2024-12-07 11:17 | W.PN.CARDCBS ---
Addendum entered and electronically signed by Quirino Barahona DO 12/07/24 12:45:
I saw and examined the patient.
The [employer]'s note was reviewed and I agree with the note.
Comment:
Plan:
GI work up ongoing. Endoscopy today. Biopsies pending.
Cont colchicine although not clear this is pericarditis.
Outpt cardiac MRI
Remains euvolemic, cont oral lasix
Resume Lisinopril
Original Note:
Today's Communication / Plan
-
Etiology of chest pain could be pericarditis or GI source
Cont colchicine 0.3 mg BID
Restart lisinopril in AM, ordered by me
Impression / Plan
-
PCP: Jessica Sanders
Envelope Folder: Dr. Erickson
Impression:
Presents 12/04/2024 with complaints of epigastric and chest discomfort radiating upwards worse with inspiration and deep breaths
Elevated D-dimer
Possible pericarditis
Possible eosinophilic esophagitis
Extrinsic compression mid esophagus on upper endoscopy 12/07/24
SHANELL
Chronic HFrEF
Nonischemic cardiomyopathy, EF 18%
Nonobstructive CAD on [facility] 11/16/2024
NSVT on tele 11/16/2024
Pulmonary hypertension
Hepatomegaly
h/o Pleural effusion
Alpha-Gal syndrome
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
status post IR biopsy of left inguinal lymph node 11/15/24
Tobacco abuse
Daily alcohol use
History of [place] Spotted Fever
Asthma
Echo 11/11/2024: EF 10% with severe global hypokinesis. Moderately dilated left ventricle. Mild concentric LVH. Stage III DD. Moderate MR, mild to moderate TR, PAP 35 to 40 mmHg
LHC/RHC 11/16/2024: Elevated right/left ventricular filling pressures, normal coronary arteries; recommendation cease all alcohol, IV diuresis for elevated pressures.
Echo 12/04/2024: Ejection fraction 18%, severely dilated ventricle with global hypokinesis and septal akinesis, dilated and hypokinetic right ventricle with PA pressure of 33-38 mmHg, no pericardial effusion
Plan:
-Patient was admitted with new diagnosis of acute HF and NICM 11/11/24 until 11/19/24. Cardiac cath with nonobstructive CAD 11/16/24. Also with diffuse adenopathy during that admission and had lymph node biopsy and there is concern for Castleman
disease. Separately patient has been diagnosed with Alpha-gal syndrome and has a h/o [place] Spotted fever symptoms in 2018, but was not treated until 2020. Patient was d/c'd to home on 11/19/24 and then readmitted on 12/04/24 with epigastric
and chest pain. Troponin levels serially undetectable. Echo without pericardial effusion. Pain was being relieved with Dilaudid which is atypical for pericarditis. Colchicine 0.3 mg BID ordered.
-Patient was seen by GI 12/06/24 and had upper endoscopy 12/07/24 and report describes extrinsic compression in the mid esophagus. Biopsies were taken for eosinophilic esophagitis. Possibly his epigastric and chest pain is due to a GI issue.
-Patient with NICM with EF of 10% by echo 11/11/24 that improved to 18% by echo 12/04/24.
-No evidence of acute HF. Patient was taking Lasix 40 mg PO daily prior to admission and hospitalist attending ordered Lasix 30 mg PO BID. This seems like it might be hard to maintain as an outpatient and would recommend Lasix 60 mg PO daily or 20
mg BID.
-Outpatient dose of lisinopril 2.5 mg daily is on hold due to SHANELL on admission. Cre improving, will restart lisinopril in 12/08/24 AM.
-Cre as high as 1.5 this admission and improved to 1.2 on 12/07/24.
-Outpatient dose of Coreg 1.5625 mg BID has been continued
-SGLT-2 is cost prohibitive
-Patient is scheduled for cardiac MRI 01/13/25
HPI 12/04/2024: Patient is a 49-year-old male with past medical history significant for heart failure with reduced ejection fraction, nonischemic cardiomyopathy, nonobstructive coronary artery disease on catheterization October 2024, nonsustained
ventricular tachycardia, moderate MR, pulmonary hypertension, CKD, hepatomegaly with history of ascites, asthma, [place] spotted fever and history of tobacco and alcohol abuse. Patient had recent admission in 11/11/2024 with abdominal
distention, lower extremity edema, palpable adenopathy he was found to have significant ascites and peripheral edema. He was found to have a nonischemic cardiomyopathy with a EF of 10% and nonobstructive coronary artery disease on catheterization.
He had moderate MR and pulmonary hypertension on catheterization. Given his diffuse adenopathy had lymph node biopsy for concerns of cattleman's disease. Per review of records was also diagnosed with Alpha-gal syndrome. Patient was also seen in
late October with complaints of cellulitis of right foot and was placed on Keflex then started on Bactrim by primary doctor. Presents 12/04/2024 with intermittent epigastric/chest discomfort for several days which has now become more persistent and
severe in nature prompting him to seek emergency medical attention. Patient reports he develops a epigastric pain that is sharp and when he takes a deep breath or tries to move it radiates upwards into his chest into his back and neck. He reports
it is worse with taking deep breaths. He notes some mild associated nausea. Initial troponin negative. EKG shows sinus rhythm with nonspecific T wave abnormality similar to prior tracings. D-dimer 1.28. Chest x-ray with low lung volumes and
bibasilar atelectasis with possible small right effusion. Blood pressure low but appears to be his baseline compared to prior blood pressures during recent admission. Given ongoing pain patient was given 3 doses of IV Dilaudid and IV acetaminophen
with some improvement of symptoms. Also was provided colchicine. At time of this evaluation patient still uncomfortable reporting epigastric discomfort radiating into the chest worse with taking deep breaths.
Progress Note - Envelope Folder
Subjective
Date of Service: December 07, 2024
Hungry after upper endoscopy
Objective
Labs:
12/07/24 04:39
12/07/24 04:39
Labs
Hgb 13.5 g/dL (13.0-18.0) 12/07/24 04:39
Hct 40.5 % (39.0-52.0) 12/07/24 04:39
Plt Count 212 10^3/uL (130-400) 12/07/24 04:39
PT 15.4 Sec (11.4-14.6) H 12/04/24 11:18
INR 1.19 12/04/24 11:18
APTT 29.6 Sec (23.4-35.0) 12/04/24 11:18
Sodium 132 mmol/L (135-145) L 12/07/24 04:39
Potassium 4.5 mmol/L (3.5-5.1) 12/07/24 04:39
BUN 29 mg/dl (9-20) H 12/07/24 04:39
Creatinine 1.2 mg/dL (0.7-1.3) 12/07/24 04:39
Glucose 94 mg/dl (70-99) 12/07/24 04:39
Troponins
12/04/24 12/04/24 12/05/24
15:50 21:37 03:22
Troponin I < 0.012 < 0.012 < 0.012
12/05/24
09:25
Troponin I Cancelled
Vital Signs and I&O:
Vital Signs
Temp Pulse Resp BP Pulse Ox
98.5 F 90 16 95/73 97
12/07/24 11:17 12/07/24 11:17 12/07/24 11:17 12/07/24 11:17 12/07/24 11:17
Vital Signs
Temp Pulse Resp BP Pulse Ox
98.5 F 90 16 95/73 97
12/07/24 11:17 12/07/24 11:17 12/07/24 11:17 12/07/24 11:17 12/07/24 11:17
Intake & Output
12/05/24 12/06/24 12/07/24 12/08/24
06:59 06:59 06:59 06:59
Intake Total 480 / 480 480 / 480 730 / 730
Output Total 500 / 500 800 / 800
Balance -20 / -20 480 / 480 -70 / -70
Physical Exam
Physical Exam
GEN: AAOx3
HEENT: MMM
LUNGS: RA. No audible wheeze
CV: SR on tele
ABD: ND
EXT: No edema B/L
NEURO: Gross non-focal
SKIN: No rash
--- NOTE | 2024-12-07 11:45 | PTCARENOTE ---
patient returned from GI lab, monitor placed NSR, VSS. patient awake, voices no concerns. patient will order lunch. am medications given.
--- NOTE | 2024-12-07 13:55 | W.PN.UPDATE ---
Update Note
Progress Note Update
Talked with patient's , Salena, by phone for 32 minutes and 31 seconds. Issues and topics discussed as below:
Patient and are willing to pay for generic Farxiga (dapagliflozin) and or using the [employer] hilda and will pay $180 a month for this
Gave patient's the information for Corlanor and that the dose would be 5 mg twice daily and she is going to use good Rx for this as well to see if it has something they can afford. Patient does not have medical insurance or prescription plan.
Patient had previously been receiving heparin SQ for DVT prophylaxis, the patient's reminded me that with his history of alpha gal syndrome that any mammal product could cause him to have a reaction. The patient should not receive heparin or
any gel coated capsules. Reached out to pharmacy to make sure that his chart is marked.
Patient's PCP has been seeing him for talking to the family on an almost daily basis and helping to micromanage meds as an outpatient. Lisinopril had been stopped prior to admission due to hypotension with reported SBP as low as 60-70 and feelings
of fatigue. Will still plan to restart lisinopril 2.5 mg daily tomorrow but placed a hold parameter for SBP less than 100.
Patient will not be able to have cardiac MRI as an inpatient, but will call the MRI department to see if we can move that appointment up from end of December
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 The
pathology report from lymph node biopsy on 11/15/2024 did not completely rule out lymphoma or other nonhematologic malignancies.
TT to the hospitalist attending to see if they would be willing to have heme/onc see the patient again this admission to review the pathology report and see if additional workup is needed. Again the patient does not have insurance and so I do not
know how they could conceivably be seen in the oncology office or what that might cost them and we do not yet know if he has qualified for Medicaid.
TT to the CM to ask if patient has been approved for Medicaid yet, the application was placed last admission
32 minutes of critical care time updating the patient's by phone to help make crucial decisions as noted above.
[2024-12-07] MEDS: FARXIGA 10 MG PO (13:56)
[2024-12-07] MEDS: MILK OF MAGNESIA 30 ML PO (14:12)
[2024-12-07] MEDS: DILAUDID 0.5 MG IV (14:15)
--- NOTE | 2024-12-07 14:18 | PTCARENOTE ---
patient c/o constipation, MOM given as ordered. patient c/o upper abd. pain, patient requested Dilaudid, given as ordered.
--- NOTE | 2024-12-07 14:49 | CON.ONC ---
Impression
Impression
p/w chest pain/epigastric pain
ETOH/smoking cessation since October 2024
Diffuse adenopathy s/p LN bx October 2024 non-malignant - Reactive sinus histiocytosis
skin bx w/o Tcell lymphoma per PCP report to pt
suspected pericarditis management per cardiology
suspected eosinophilic esophagitis and gastritis on PPI - GI following
Plan
Plan
Reactive sinus histiocytosis is usually a benign reaction as a result of inflammation, infection, or foreign material in the lymph nodes. Pathology results reviewed with the pathologist. The tissue morphology and immunostain results show no evidence
of lymphoma and outweigh the ambiguity of the flow cytometry.
To consider colonoscopy, diagnostic para. f/u EDG biopsies - management per GI
Medical oncology will sign off, please reach out with any questions or concerns
Patient History
History of Present Illness
49y M presented with epigastric and chest discomfort radiating upwards on 12/04/2024. Symptoms worsen with inspiration and deep breaths for 3 days prior to admission. He was unable to lye down due to worsening of discomfort in supine. His CTA
chest showed no evidence of pulmonary embolism, however, did show stable small left and moderate right pleural effusions, stable mild intrathoracic lymphadenopathy, and mild upper abdominal ascites. He was admitted for further evaluation and
management. His EGD today showed extrinsic compression in the mid esophagus for which biopsies were taken due to concern for eosinophilic esophagitis and gastritis which was also biopsied. He is on PPI. He is also on colchicine for suspected
pericarditis, however, outpatient cardiac MRI is pending.
Recall that he presented in October 2024 with abdominal distention, LE swelling rashes and palpable adenopathy. He reported that his symptoms initially started about 5 years ago when he was bitten by a tick. He has intermittently been treated with
antibiotics and prednisone without complete resolution. He underwent a left inguinal LN biopsy October 2024 that showed reactive sinus histiocytosis, the flow showed increased CD4:CD8 ratio among T cells. He also had a skin biospy for which he
showed me communication from PCP that pathology showed inflammation/allergy. No atypical lymphoid infiltrate. Though I do not have pathology to confirm.
Clinically, he denies fever, chills, cough, SOB, RODARTE, palpitations, n/v/d or lower abdominal pain. He has been using Miralax for narcotic induced constipation. He denies any changes in bowel patterns, appetite, or unintentional weight loss. He does
report a 15lb wt loss from diuretics in october. He reports chronic stable LE edema. He reports ETOH and smoking abstinence since October 2024 hospitalization.
Past-Medical/Surgical History
Past Medical History
Lowman Spotted Fever
Asthma
Diffuse eczema
nonischemic cardiomyopathy
HFrEF
CAD
NSVT
moderate mitralregurgitation
pulmonary HTN
CKD
alpha gal syndrome
Past Surgical History
Bilateral Shoulder Surgeries
R Hand Surgery
ORIF Right Ankle / Foot
Social History
Tobacco: Smoker (Current every day smoker. 1/ ppd.)
Alcohol: Daily (3-4 glasses of wine daily.)
Drug: None
Family History
Family History: Other (Mother: Lymph Node Cancer Sister: Eczema / Alopecia)
Patient Medication
�Medication �Instructions �Recorded �Confirmed �Last Taken �Type
albuterol sulfate 90 mcg/actuation 2 puff inhalation R Q6HPRN PRN sob 11/10/24 12/05/24 Unknown History
aerosol inhaler
fluticasone 250 mcg-salmeterol 50 1 inh inhalation R QPM 11/10/24 12/05/24 11/10/24 History
mcg/dose blistr powdr for Lung/Breathing Issues
inhalation
carvedilol 3.125 mg tablet 1.5625 mg PO BID Heart 12/05/24 12/05/24 Unknown History
Disease/Condition
furosemide 40 mg tablet 40 mg PO NOON Fluid 12/06/24 12/05/24 Unknown History
Retention/Swelling
lisinopril 2.5 mg tablet 2.5 mg PO HS Blood Pressure 12/06/24 12/05/24 Unknown History
Active Medications
Generic Name Dose Route Start Last Admin
Trade Name Freq PRN Reason Stop Dose Admin
Carvedilol 1.5625 mg 12/04/24 20:00 12/07/24 11:12
Carvedilol 3.125 Mg Tablet PO 01/01/25 19:59 1.5625 mg
BID ARMANI Administration
Colchicine 0.3 mg 12/04/24 20:00 12/07/24 11:10
Colchicine 0.6 Mg Tablet PO 01/01/25 19:59 0.3 mg
BID ARMANI Administration
Dapagliflozin 10 mg 12/07/24 13:30 12/07/24 13:56
Dapagliflozin (Farxiga) 10 Mg Tablet PO 01/04/25 13:29 10 mg
DAILY ARMANI Administration
Folic Acid 1 mg 12/05/24 08:00 12/07/24 11:12
Folic Acid 1 Mg Tablet PO 01/02/25 07:59 1 mg
DAILY ARMANI Administration
Furosemide 30 mg 12/05/24 17:00 12/07/24 11:11
Furosemide 20 Mg Tablet PO 01/02/25 16:59 30 mg
BID AT 0800,1600 ARMANI Administration
Hydroxyzine HCl 50 mg 12/07/24 22:00
Hydroxyzine 25 Mg Tablet PO 01/04/25 21:59
HS ARMANI
Folic Acid 1 mg/ Sodium 50.2 mls @ 200.8 mls/hr 12/04/24 16:49
Chloride IV 01/01/25 16:48
DAILYPRN PRN
if NPO
Lisinopril 2.5 mg 12/08/24 08:00
Lisinopril 2.5 Mg Tablet PO 01/05/25 07:59
DAILY ARMANI
Lorazepam 1 mg 12/04/24 16:49
Lorazepam 1 Mg Tablet PO 01/01/25 16:48
Q2HPRN PRN
MSAS 5-7
Lorazepam 1 mg 12/04/24 16:55
Lorazepam 2 Mg/Ml Vial IV 01/01/25 16:54
Q1HPRN PRN
MSAS 8-11
Lorazepam 2 mg 12/04/24 16:49
Lorazepam 2 Mg/Ml Vial IV 01/01/25 16:48
Q1HPRN PRN
MSAS > 11
Magnesium Hydroxide 30 ml 12/05/24 13:25 12/07/24 14:12
Milk Of Magnesia 30 Ml Cup PO 01/02/25 13:24 30 ml
QIDPRN PRN Administration
constipation
Melatonin 10 mg 12/07/24 20:00
Melatonin 5 Mg Tablet PO 01/04/25 19:59
DAILY@2000 ARMANI
Oxycodone/Acetaminophen 1 tablet 12/05/24 13:25 12/06/24 19:39
Oxycodone 5 Mg/Apap 325 Mg (Percocet) PO 12/19/24 13:24 1 tablet
Q4HPRN PRN Administration
moderate pain
Polyethylene Glycol 17 grams 12/05/24 14:00 12/07/24 11:14
Polyethylene Glycol Powder 17 Grams Packet PO 01/02/25 13:59 Not Given
DAILY ARMANI
Sodium Chloride 0 flush 12/04/24 17:00 12/06/24 15:45
Sodium Chloride 0.9% (Flush) Syringe IV 01/01/25 16:59 1 flush
PER PROTOCOL ARMANI Administration
Sodium Chloride 0 ml 12/04/24 16:49
Sodium Chloride 0.9% (Preservative Free) 10 Ml Vial IV 01/01/25 16:48
PRN PRN
To dilute IV Ativan
Protocol
Thiamine HCl 100 mg 12/07/24 20:00
Thiamine 100 Mg Tablet PO 01/04/25 19:59
BID ARMANI
Review of Systems
-
ROS notable for HPI, otherwise negative
Physical Exam
-
General: Resting comfortably
HEENT: No scleral icterus.
Respiratory: Clear; No Wheezes, Rales or Rhonchi
Cardiac: S1/S2 and Tachycardia; No Murmur
GI: Soft, Non Tender, Non Distended and Normal Bowel Sounds
Musculoskeletal: LE edema - mostly non-pitting - extending to the groin
Skin: Generalized erythema diffusely with eczema skin changes / superficial excoriations patient relates this is typical of his eczema
Neuro: AO x 3 and Nonfocal/grossly intact
Hematologic/Lymphatic: Prominent axillary and inguinal adenopathy
Labs
Lab Results
WBC 7.0 10^3/uL (4.8-10.8) 12/07/24 04:39
RBC 4.46 10^6/uL (4.70-6.10) L 12/07/24 04:39
Hgb 13.5 g/dL (13.0-18.0) 12/07/24 04:39
Hct 40.5 % (39.0-52.0) 12/07/24 04:39
MCV 90.8 fL (80.0-94.0) 12/07/24 04:39
MCH 30.3 pg (27.0-31.0) 12/07/24 04:39
MCHC 33.3 g/dL (33.0-37.0) 12/07/24 04:39
RDW 13.8 % (11.5-14.5) 12/07/24 04:39
Plt Count 212 10^3/uL (130-400) 12/07/24 04:39
MPV 10.7 fL (7.4-10.4) H 12/07/24 04:39
Abs Immat Gran (auto) 0.0 10^3/uL (0-0.05) 12/05/24 03:22
Absolute Neuts (auto) 5.1 10^3/uL (1.4-6.5) 12/05/24 03:22
Absolute Lymphs (auto) 1.7 10^3/uL (1.2-3.4) 12/05/24 03:22
Absolute Monos (auto) 0.9 10^3/uL (0.1-0.6) H 12/05/24 03:22
Absolute Eos (auto) 0.1 10^3/uL (0-0.7) 12/05/24 03:22
Absolute Basos (auto) 0.0 10^3/uL (0-0.2) 12/05/24 03:22
Immature Gran % 0.4 % (0-0.5) 12/05/24 03:22
Neutrophils % 65.8 % (42.2-75.2) 12/05/24 03:22
Lymphocytes % 21.5 % (20.5-51.1) 12/05/24 03:22
Monocytes % 11.0 % (1.7-9.3) H 12/05/24 03:22
Eosinophils % 0.8 % (0-6) 12/05/24 03:22
Basophils % 0.5 % (0-2) 12/05/24 03:22
Creatinine 1.2 mg/dL (0.7-1.3) 12/07/24 04:39
Vital Signs
Vital Signs
Temp Pulse Resp BP Pulse Ox
98.5 F 90 16 95/73 97
12/07/24 11:17 12/07/24 11:17 12/07/24 11:17 12/07/24 11:17 12/07/24 11:17
[2024-12-07] MEDS: VITAMIN B1 100 MG PO (20:12)
[2024-12-07] MEDS: PERCOCET 5/325 1 TABLET PO (20:14)
[2024-12-07] MEDS: ATARAX 50 MG PO (22:40)
[2024-12-07] MEDS: MELATONIN 10 MG PO (22:40)
--- NOTE | 2024-12-07 23:40 | PTCARENOTE ---
Assumed care of the patient @ 5090. AAOx3 c/o mid sternal pain the extends from upper abd to neck. See MAR for pain administration. SR on the monitor. Independent in the room Call tim within reach.
[2024-12-08] VITALS (16 sets, daily range): BP systolic 83–103; BP diastolic 63–79; BMI 29.7; BMI 29.3
[2024-12-08] MEDS: PERCOCET 5/325 1 TABLET PO (00:39)
[2024-12-08 04:15] LABS: Blood Urea Nitrogen 32 mg/dl (9-20); Calcium 8.6 mg/dl (8.4-10.2); Carbon Dioxide 25 mmol/L (22-30); Chloride 100 mmol/L (98-107); Estimated Creatinine Clearance 75 ml/min; Glucose 91 mg/dl (70-99); Potassium 4.1 mmol/L (3.5-5.1); Sodium 134 mmol/L (135-145); eGFR > 60.00
[2024-12-08] MEDS: LASIX 30 MG PO (08:38)
[2024-12-08] MEDS: FARXIGA 10 MG PO (08:38)
[2024-12-08] MEDS: COLCHICINE 0.3 MG PO ×2 (08:42→20:55)
[2024-12-08] MEDS: COREG 1.5625 MG PO ×2 (08:42→20:48)
[2024-12-08] MEDS: FOLVITE 1 MG PO (08:42)
[2024-12-08] MEDS: MIRALAX PO (08:45)
[2024-12-08] MEDS: VITAMIN B1 100 MG PO ×2 (08:45→20:55)
--- NOTE | 2024-12-08 09:06 | W.PN.CARDCBS ---
Addendum entered and electronically signed by Mary Zambrano MD 12/08/24 10:37:
I saw and examined the patient.
The Supervisor Mechanic [employer]'s note was reviewed and I agree with the note.
Comment: Patient's exam with volume overload. JVD 9 cm and positive HJR. He has biventricular heart failure with RV and LV dysfunction which is a new diagnosis. He has some unusual conditions that have been assessed as an outpatient by report
including alpha gal disease and Castleman's disease. Nonischemic cardiomyopathy (cardiac catheterization without obstructive coronary disease) may also be in part related to alcohol use 4 beers a day for which she quit about 2 weeks ago. His blood
pressure is marginal and difficult to institute/uptitrate guideline directed medical therapy. Plan at this time:
-Continue to uptitrate guideline directed medical therapy as tolerates
-He is wet on exam lets continue to diurese and will give a dose of 40 mg of IV Lasix now, continue oral Lasix and continue to follow.
-Continue to follow telemetry.
-At the 90-day kaylah to reassess left ventricular function to rule stratify for sudden cardiac . In the interim continue to watch for arrhythmia.
Original Note:
Today's Communication / Plan
-
Stop colchicine
Change Lasix to 20 mg PO BID and this should be his outpatient dose as well
51 min in coordination of care and talking with patient
Impression / Plan
-
PCP: Jessica Sanders
Fan Runner: Dr. Erickson
Impression:
Presents 12/04/2024 with complaints of epigastric and chest discomfort radiating upwards worse with inspiration and deep breaths
Elevated D-dimer
Possible pericarditis
no effusion on echo, inflammatory markers not checked on admission, Troponin serially undetectable
colchicine stopped prior to d/c
Possible eosinophilic esophagitis
Extrinsic compression mid esophagus on upper endoscopy 12/07/24
SHANELL
Chronic HFrEF
Nonischemic cardiomyopathy, EF 18%
Nonobstructive CAD on C 11/16/2024
NSVT on tele 11/16/2024
Pulmonary hypertension
Hepatomegaly
h/o Pleural effusion
Alpha-Gal syndrome
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
status post IR biopsy of left inguinal lymph node, no evidence of lymphoma 11/15/24
Tobacco abuse
Daily alcohol use
History of Sultan Spotted Fever
Asthma
Echo 11/11/2024: EF 10% with severe global hypokinesis. Moderately dilated left ventricle. Mild concentric LVH. Stage III DD. Moderate MR, mild to moderate TR, PAP 35 to 40 mmHg
LHC/RHC 11/16/2024: Elevated right/left ventricular filling pressures, normal coronary arteries; recommendation cease all alcohol, IV diuresis for elevated pressures.
Echo 12/04/2024: Ejection fraction 18%, severely dilated ventricle with global hypokinesis and septal akinesis, dilated and hypokinetic right ventricle with PA pressure of 33-38 mmHg, no pericardial effusion
Plan:
-Patient was admitted with new diagnosis of acute HF and NICM 11/11/24 until 11/19/24. Cardiac cath with nonobstructive CAD 11/16/24. Also with diffuse adenopathy during that admission and had lymph node biopsy and there is concern for Castleman
disease,. Separately patient has been diagnosed with Alpha-gal syndrome and has a h/o Sultan Spotted fever symptoms in 2018, but was not treated until 2020. Patient was d/c'd to home on 11/19/24 and then readmitted on 12/04/24 with epigastric
and chest pain. Troponin levels serially undetectable. Echo without pericardial effusion. Pain was being relieved with Dilaudid which is atypical for pericarditis. Colchicine 0.3 mg BID ordered.
-Upper endoscopy 12/07/24 report describes extrinsic compression in the mid esophagus. Biopsies were taken for eosinophilic esophagitis. Possibly his epigastric and chest pain is due to a GI issue. GI has signed off.
-Heme/Onc saw patient 12/07/24 to review lymph node biopsy and skin biopsy last admission and there is no evidence of lymphoma. 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 CT chest from 12/04/24 describes stable mild mediastinal,
hilar and bilateral axillary adenopathy.
-Patient with h/o Sultan Spotted Fever and subsequent Alpha-gal syndrome. Pharmacy updated and alpha-gal listed as an allergy so that patient will no be given any mammal protein products including heparin and gel coated capsules.
-From a cardiac standpoint, patient with chest and epigastric pain on admission. Patient was not started on NSAID due to SHANELL from contrast. Patient was started on colchicine 0.3 mg BID due to interaction with Coreg. Despite addition of colchicine
the patient continued with pain prompting GI eval as noted above. Pain relief has been challenging and patient requiring Dilaudid PRN (now d/c'd) and Percocet PRN. Will stop colchicine as this is not clearly pericarditis.
-Echo repeated this admission shows mild improvement in EF to 18%. No pericardial effusion.
-No evidence of acute HF. Talked with patient's on 12/07/24 and patient was taking Lasix 20 mg PO BID prior to admission, will change standing Lasix order to 20 mg PO BID and this should be his outpatient dose as well.
-Outpatient dose of lisinopril 2.5 mg daily was ordered to be held by patient's PCP due to symptomatic hypotension as an outpatient, he had essentially not taken a dose for a week prior to admission. Restarted lisinopril 2.5 mg daily 12/08/24, but
holding for SBP less than 100 due to outpatient symptomatic hypotension.
-Patient's says that they are going to pay out of pocket for generic dapagliflozin (Farxiga) 10 mg daily, it will be $180/month. Farxiga 10 mg daily started 12/07/24.
-Outpatient dose of Coreg 1.5625 mg BID has been continued
-SHANELL this admission Cre as high as 1.5 and improved to 1.3 on 12/08/24. This was likely due to contrast from CT on admission. No indication that patient has CKD.
-Patient is scheduled for cardiac MRI 01/13/25. I called MRI dept on 12/08/24 and then sent a TT to the 'urgent MRI' team to ask about moving up the study. Patient planning to pay [employer] and will give information for the rashid line to patient's .
-Talked with CM on 12/07/24 and patient still does not have a determination from [employer] on Medicaid. Patient also asking about SSD and CM was asking [employer] about that as well.
-Cardiology follow up arranged
HPI 12/04/2024: Patient is a 49-year-old male with past medical history significant for heart failure with reduced ejection fraction, nonischemic cardiomyopathy, nonobstructive coronary artery disease on catheterization October 2024, nonsustained
ventricular tachycardia, moderate MR, pulmonary hypertension, CKD, hepatomegaly with history of ascites, asthma, Sultan spotted fever and history of tobacco and alcohol abuse. Patient had recent admission in 11/11/2024 with abdominal
distention, lower extremity edema, palpable adenopathy he was found to have significant ascites and peripheral edema. He was found to have a nonischemic cardiomyopathy with a EF of 10% and nonobstructive coronary artery disease on catheterization.
He had moderate MR and pulmonary hypertension on catheterization. Given his diffuse adenopathy had lymph node biopsy for concerns of cattleman's disease. Per review of records was also diagnosed with Alpha-gal syndrome. Patient was also seen in
late October with complaints of cellulitis of right foot and was placed on Keflex then started on Bactrim by primary doctor. Presents 12/04/2024 with intermittent epigastric/chest discomfort for several days which has now become more persistent and
severe in nature prompting him to seek emergency medical attention. Patient reports he develops a epigastric pain that is sharp and when he takes a deep breath or tries to move it radiates upwards into his chest into his back and neck. He reports
it is worse with taking deep breaths. He notes some mild associated nausea. Initial troponin negative. EKG shows sinus rhythm with nonspecific T wave abnormality similar to prior tracings. D-dimer 1.28. Chest x-ray with low lung volumes and
bibasilar atelectasis with possible small right effusion. Blood pressure low but appears to be his baseline compared to prior blood pressures during recent admission. Given ongoing pain patient was given 3 doses of IV Dilaudid and IV acetaminophen
with some improvement of symptoms. Also was provided colchicine. At time of this evaluation patient still uncomfortable reporting epigastric discomfort radiating into the chest worse with taking deep breaths.
Progress Note - Fan Runner
Subjective
Date of Service: December 08, 2024
He wants to shower, denies chest pain
Objective
Labs:
12/07/24 04:39
12/08/24 03:43
Labs
Hgb 13.5 g/dL (13.0-18.0) 12/07/24 04:39
Hct 40.5 % (39.0-52.0) 12/07/24 04:39
Plt Count 212 10^3/uL (130-400) 12/07/24 04:39
PT 15.4 Sec (11.4-14.6) H 12/04/24 11:18
INR 1.19 12/04/24 11:18
APTT 29.6 Sec (23.4-35.0) 12/04/24 11:18
Sodium 134 mmol/L (135-145) L 12/08/24 03:43
Potassium 4.1 mmol/L (3.5-5.1) 12/08/24 03:43
BUN 32 mg/dl (9-20) H 12/08/24 03:43
Creatinine 1.3 mg/dL (0.7-1.3) 12/08/24 03:43
Glucose 91 mg/dl (70-99) 12/08/24 03:43
Troponins
12/05/24
09:25
Troponin I Cancelled
Vital Signs and I&O:
Vital Signs
Temp Pulse Resp BP Pulse Ox
97.9 F 84 18 98/75 95
12/08/24 07:12 12/08/24 08:42 12/08/24 07:12 12/08/24 08:42 12/08/24 07:12
Vital Signs
Temp Pulse Resp BP Pulse Ox
97.9 F 84 18 98/75 95
12/08/24 07:12 12/08/24 08:42 12/08/24 07:12 12/08/24 08:42 12/08/24 07:12
Intake & Output
12/06/24 12/07/24 12/08/24 12/09/24
06:59 06:59 06:59 06:59
Intake Total 480 / 480 730 / 730
Output Total 800 / 800 600 / 600
Balance 480 / 480 -70 / -70 -600 / -600
Physical Exam
Physical Exam
GEN: NAD. AAOx3
HEENT: MMM
LUNGS: RA. No audible wheeze
CV: SR on tele
ABD: ND
EXT: No edema B/L
NEURO: Gross non-focal
SKIN: No rash
--- NOTE | 2024-12-08 10:02 | W.PN.CARDCBS ---
Addendum entered and electronically signed by Stephanie Torres PA-C 12/09/24 17:05:
Please note that this note is for today, 12/09/24 even though it's dated 12/08/24.
Addendum entered and electronically signed by Mary Zambrano MD 12/09/24 10:12:
I saw and examined the patient.
The Sinter Feeder's note was reviewed and I agree with the note.
Comment: He underwent right thoracentesis for 700 mL yesterday. Appears grossly transudative. Cell counts not ordered. We have added on cell cultures. Pathology is also pending. Suspect pleural effusion secondary to heart failure in the setting
of heart failure with severely reduced ejection fraction and limited ability to take guideline directed medical therapy because of low blood pressure. He is feeling okay overall except for tired not sleeping last night.
Heart regular rate and rhythm with no new murmurs. Extremities with trace to +1 lower extremity edema which has improved. Lungs with crackles at the bases right greater than left.
-Plan at this time is to give another dose of IV Lasix 20 mg today and hold oral Lasix continue to follow. His weight is down 3 pounds overnight. Continue cautiously given low blood pressure.
-Continue guideline directed medical therapy as tolerates (limited by low blood pressure).
-In the future could consider Corlanor if affordable.
-Medicaid application is underway.
-Patient has LifeVest at home and family will bring in.
-Nursing will walk patient in hallway today to assess status.
-Pending status later today consider discharge today or tomorrow. More likely tomorrow.
-I did communicate with Dr. Henriquez of heart failure/transplant at [facility] yesterday and his office will call to make expedited arrangements for patient to be seen as an outpatient. We also have outpatient plans arranged.
Original Note:
Documented by User: Mary Zambrano MD 12/08/24 10:09
Impression / Plan
-
PCP: Jessica Sanders
Senior Network Engineer: Dr. Erickson
Impression:
Presents 12/04/2024 with complaints of epigastric and chest discomfort radiating upwards worse with inspiration and deep breaths
Elevated D-dimer
Possible pericarditis
no effusion on echo, inflammatory markers not checked on admission, Troponin serially undetectable
colchicine stopped prior to d/c
Possible eosinophilic esophagitis
Extrinsic compression mid esophagus on upper endoscopy 12/07/24
SHANELL
Chronic HFrEF
Nonischemic cardiomyopathy, EF 18%
Nonobstructive CAD on [facility] 11/16/2024
NSVT on [facility] 11/16/2024
Pulmonary hypertension
Hepatomegaly
h/o Pleural effusion
Alpha-Gal syndrome
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
status post IR biopsy of left inguinal lymph node, no evidence of lymphoma 11/15/24
Tobacco abuse
Daily alcohol use
History of [place] Spotted Fever
Asthma
Echo 11/11/2024: EF 10% with severe global hypokinesis. Moderately dilated left ventricle. Mild concentric LVH. Stage III DD. Moderate MR, mild to moderate TR, PAP 35 to 40 mmHg
LHC/RHC 11/16/2024: Elevated right/left ventricular filling pressures, normal coronary arteries; recommendation cease all alcohol, IV diuresis for elevated pressures.
Echo 12/04/2024: Ejection fraction 18%, severely dilated ventricle with global hypokinesis and septal akinesis, dilated and hypokinetic right ventricle with PA pressure of 33-38 mmHg, no pericardial effusion
Plan:
-Patient was admitted with new diagnosis of acute HF and NICM 11/11/24 until 11/19/24. Cardiac cath with nonobstructive CAD 11/16/24. Also with diffuse adenopathy during that admission and had lymph node biopsy and there is concern for Castleman
disease. Separately patient has been diagnosed with Alpha-gal syndrome and has a h/o [place] Spotted fever symptoms in 2018, but was not treated until 2020. Patient was d/c'd to home on 11/19/24 and then readmitted on 12/04/24 with epigastric
and chest pain. Troponin levels serially undetectable. Echo without pericardial effusion. Transiently started on colchicine. Then underwent GI procedure and GI etiology more likely.
-
-Upper endoscopy 12/07/24 report describes extrinsic compression in the mid esophagus. Biopsies were taken for eosinophilic esophagitis. Possibly his epigastric and chest pain is due to a GI issue. GI has signed off.
-Heme/Onc saw patient 12/07/24 to review lymph node biopsy and skin biopsy last admission and there is no evidence of lymphoma. 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 CT chest from 12/04/24 describes stable mild mediastinal,
hilar and bilateral axillary adenopathy.
-Patient with h/o [place] Spotted Fever and subsequent Alpha-gal syndrome. Pharmacy updated and alpha-gal listed as an allergy so that patient will no be given any mammal protein products including heparin and gel coated capsules.
-From a cardiac standpoint, patient with chest and epigastric pain on admission. Patient was not started on NSAID due to SHANELL from contrast. Patient was started on colchicine 0.3 mg BID due to interaction with Coreg. Despite addition of colchicine
the patient continued with pain prompting GI eval as noted above. Pain relief has been challenging and patient requiring Dilaudid PRN (now d/c'd) and Percocet PRN. Will stop colchicine as this is not clearly pericarditis.
-Echo repeated this admission shows mild improvement in EF to 18%. No pericardial effusion.
-No evidence of acute HF. Talked with patient's on 12/07/24 and patient was taking Lasix 20 mg PO BID prior to admission, will change standing Lasix order to 20 mg PO BID and this should be his outpatient dose as well.
-Outpatient dose of lisinopril 2.5 mg daily was ordered to be held by patient's PCP due to symptomatic hypotension as an outpatient, he had essentially not taken a dose for a week prior to admission. Restarted lisinopril 2.5 mg daily 12/08/24, but
holding for SBP less than 100 due to outpatient symptomatic hypotension.
-Patient's says that they are going to pay out of pocket for generic dapagliflozin (Farxiga) 10 mg daily, it will be $180/month. Farxiga 10 mg daily started 12/07/24.
-Outpatient dose of Coreg 1.5625 mg BID has been continued
-SHANELL this admission Cre as high as 1.5 and improved to 1.3 on 12/08/24. This was likely due to contrast from CT on admission. No indication that patient has CKD.
-Patient is scheduled for cardiac MRI 01/13/25. I called MRI dept on 12/08/24 and then sent a TT to the 'urgent MRI' team to ask about moving up the study. Patient planning to pay [employer] and will give information for the rashid line to patient's .
-Talked with CM on 12/07/24 and patient still does not have a determination from [facility] [place] on Medicaid. Patient also asking about SSD and CM was asking [employer] about that as well.
-Cardiology follow up arranged
HPI 12/04/2024: Patient is a 49-year-old male with past medical history significant for heart failure with reduced ejection fraction, nonischemic cardiomyopathy, nonobstructive coronary artery disease on catheterization October 2024, nonsustained
ventricular tachycardia, moderate MR, pulmonary hypertension, CKD, hepatomegaly with history of ascites, asthma, [place] spotted fever and history of tobacco and alcohol abuse. Patient had recent admission in 11/11/2024 with abdominal
distention, lower extremity edema, palpable adenopathy he was found to have significant ascites and peripheral edema. He was found to have a nonischemic cardiomyopathy with a EF of 10% and nonobstructive coronary artery disease on catheterization.
He had moderate MR and pulmonary hypertension on catheterization. Given his diffuse adenopathy had lymph node biopsy for concerns of cattleman's disease. Per review of records was also diagnosed with Alpha-gal syndrome. Patient was also seen in
late October with complaints of cellulitis of right foot and was placed on Keflex then started on Bactrim by primary doctor. Presents 12/04/2024 with intermittent epigastric/chest discomfort for several days which has now become more persistent and
severe in nature prompting him to seek emergency medical attention. Patient reports he develops a epigastric pain that is sharp and when he takes a deep breath or tries to move it radiates upwards into his chest into his back and neck. He reports
it is worse with taking deep breaths. He notes some mild associated nausea. Initial troponin negative. EKG shows sinus rhythm with nonspecific T wave abnormality similar to prior tracings. D-dimer 1.28. Chest x-ray with low lung volumes and
bibasilar atelectasis with possible small right effusion. Blood pressure low but appears to be his baseline compared to prior blood pressures during recent admission. Given ongoing pain patient was given 3 doses of IV Dilaudid and IV acetaminophen
with some improvement of symptoms. Also was provided colchicine. At time of this evaluation patient still uncomfortable reporting epigastric discomfort radiating into the chest worse with taking deep breaths.
Progress Note - Senior Network Engineer
Subjective
Date of Service: December 08, 2024
Objective
Labs:
12/07/24 04:39
12/08/24 03:43
Labs
Hgb 13.5 g/dL (13.0-18.0) 12/07/24 04:39
Hct 40.5 % (39.0-52.0) 12/07/24 04:39
Plt Count 212 10^3/uL (130-400) 12/07/24 04:39
PT 15.4 Sec (11.4-14.6) H 12/04/24 11:18
INR 1.19 12/04/24 11:18
APTT 29.6 Sec (23.4-35.0) 12/04/24 11:18
Sodium 134 mmol/L (135-145) L 12/08/24 03:43
Potassium 4.1 mmol/L (3.5-5.1) 12/08/24 03:43
BUN 32 mg/dl (9-20) H 12/08/24 03:43
Creatinine 1.3 mg/dL (0.7-1.3) 12/08/24 03:43
Glucose 91 mg/dl (70-99) 12/08/24 03:43
Vital Signs and I&O:
Vital Signs
Temp Pulse Resp BP Pulse Ox
97.9 F 84 18 98/75 95
12/08/24 07:12 12/08/24 08:42 12/08/24 07:12 12/08/24 08:42 12/08/24 07:12
Vital Signs
Temp Pulse Resp BP Pulse Ox
97.9 F 84 18 98/75 95
12/08/24 07:12 12/08/24 08:42 12/08/24 07:12 12/08/24 08:42 12/08/24 07:12
Intake & Output
12/06/24 12/07/24 12/08/24 12/09/24
06:59 06:59 06:59 06:59
Intake Total 480 / 480 730 / 730
Output Total 800 / 800 600 / 600
Balance 480 / 480 -70 / -70 -600 / -600

Documented by User: Stephanie Torres PA-C 12/09/24 09:44
Today's Communication / Plan
-
51 min face to face and coordination of care
Will call again later today
Labs ordered and will review when results available
Lasix 20 mg IV x1 now
Colchicine stopped
Home later today or tomorrow from a cardiac standpoint
Impression / Plan
-
PCP: Jessica Sanders
Senior Network Engineer: Dr. Erickson
Impression:
Presents 12/04/2024 with complaints of epigastric and chest discomfort radiating upwards worse with inspiration and deep breaths
Elevated D-dimer
Possible pericarditis
no effusion on echo, inflammatory markers not checked on admission, Troponin serially undetectable
colchicine stopped prior to d/c
Possible eosinophilic esophagitis
Extrinsic compression mid esophagus on upper endoscopy 12/07/24
SHANELL
Chronic HFrEF
Nonischemic cardiomyopathy, EF 18%
Nonobstructive CAD on [facility] 11/16/2024
NSVT on [facility] 11/16/2024
LifeVest as an outpatient
Pulmonary hypertension
Hepatomegaly
h/o Pleural effusion
Alpha-Gal syndrome
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
status post IR biopsy of left inguinal lymph node, no evidence of lymphoma 11/15/24
Tobacco abuse
Daily alcohol use
History of [place] Spotted Fever
Asthma
Echo 11/11/2024: EF 10% with severe global hypokinesis. Moderately dilated left ventricle. Mild concentric LVH. Stage III DD. Moderate MR, mild to moderate TR, PAP 35 to 40 mmHg
C/RHC 11/16/2024: Elevated right/left ventricular filling pressures, normal coronary arteries; recommendation cease all alcohol, IV diuresis for elevated pressures.
Echo 12/04/2024: Ejection fraction 18%, severely dilated ventricle with global hypokinesis and septal akinesis, dilated and hypokinetic right ventricle with PA pressure of 33-38 mmHg, no pericardial effusion
Plan:
-Weight is down 6 lbs with Lasix 40 mg IV x 1 12/08/2024. Will give additional Lasix 20 mg IV times 11/24/1624. Outpatient dose of Lasix 20 mg PO BID on hold for IV diuresis
-Echo repeated this admission shows mild improvement in EF to 18%. No pericardial effusion. Will need repeat echo at 90 days.
-Patient with LifeVest therapy that was initiated last admission and should be resumed upon d/c to home this admission. TT to CM to make sure that re-authorization is needed to resume this service.
-Patient with NICM and had nonobstructive CAD by cath last admission. Previously drinking about 4 beers a day, but has completely eliminated ETOH since his last admission.
-Will need eventual cardiac MRI. Scheduled for cardiac MRI 01/13/25. I called MRI dept on 12/08/24 and then sent a TT to the 'urgent MRI' team to ask about moving up the study. Patient planning to pay [employer] and information for the rashid line to
patient's .
-Outpatient dose of lisinopril 2.5 mg daily was ordered to be held by patient's PCP due to symptomatic hypotension as an outpatient, he had essentially not taken a dose for a week prior to admission. Restarted lisinopril 2.5 mg daily 12/08/24, but
holding for SBP less than 100 due to outpatient symptomatic hypotension.
-Patient's says that they are going to pay out of pocket for generic dapagliflozin (Farxiga) 10 mg daily, it will be $180/month. Farxiga 10 mg daily started 12/07/24.
-Outpatient dose of Coreg 1.5625 mg BID has been continued
-Labs ordered by me for 12/09/24. SHANELL earlier this admission Cre as high as 1.5 was likely due to contrast from CT on admission. No indication that patient has CKD.
-Upper endoscopy 12/07/24 report describes extrinsic compression in the mid esophagus. Biopsies were taken for eosinophilic esophagitis. Possibly his epigastric and chest pain is due to a GI issue. GI has signed off.
-Heme/Onc saw patient 12/07/24 to review lymph node biopsy and skin biopsy last admission and there is no evidence of lymphoma. 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 CT chest from 12/04/24 describes stable mild mediastinal,
hilar and bilateral axillary adenopathy.
-Patient with h/o [place] Spotted Fever and subsequent Alpha-gal syndrome. Pharmacy updated and alpha-gal listed as an allergy so that patient will no be given any mammal protein products including heparin and gel coated capsules.
-Patient with chest and epigastric pain on admission. Patient was not started on NSAID due to SHANELL from contrast. Patient was started on colchicine 0.3 mg BID due to interaction with Coreg. Despite addition of colchicine the patient continued with
pain prompting GI eval as noted above. Pain relief has been challenging and patient requiring Dilaudid PRN (now d/c'd) and Percocet PRN. Stop colchicine as this is not clearly pericarditis.
-Talked with CM on 12/07/24 and patient still does not have a determination from [employer] on Medicaid. Patient also asking about SSD and CM was asking [employer] about that as well.
-Updated patient's by phone 12/07/24 and 12/08/24
Hospital course: Patient was admitted with new diagnosis of acute HF and NICM 11/11/24 until 11/19/24. Cardiac cath with nonobstructive CAD 11/16/24. Also with diffuse adenopathy during that admission and had lymph node biopsy and there is concern
for Castleman disease,. Separately patient has been diagnosed with Alpha-gal syndrome and has a h/o [place] Spotted fever symptoms in 2018, but was not treated until 2020. Patient was d/c'd to home on 11/19/24 and then readmitted on 12/04/24
with epigastric and chest pain. Troponin levels serially undetectable. Echo without pericardial effusion. Pain was being relieved with Dilaudid which is atypical for pericarditis. Colchicine 0.3 mg BID ordered, but then stopped due to lack of
objective evidence for pericarditis. Given Lasix IV 12/08/24 and 12/09/24 with adequate diuresis. GI did upper endoscopy and taken biopsies for eosinophilic esophagitis. Heme/Onc saw patient and reviewed lymph node biopsy path report from last
admission and no evidence of lymphoma.
HPI 12/04/2024: Patient is a 49-year-old male with past medical history significant for heart failure with reduced ejection fraction, nonischemic cardiomyopathy, nonobstructive coronary artery disease on catheterization October 2024, nonsustained
ventricular tachycardia, moderate MR, pulmonary hypertension, CKD, hepatomegaly with history of ascites, asthma, [place] spotted fever and history of tobacco and alcohol abuse. Patient had recent admission in 11/11/2024 with abdominal
distention, lower extremity edema, palpable adenopathy he was found to have significant ascites and peripheral edema. He was found to have a nonischemic cardiomyopathy with a EF of 10% and nonobstructive coronary artery disease on catheterization.
He had moderate MR and pulmonary hypertension on catheterization. Given his diffuse adenopathy had lymph node biopsy for concerns of cattleman's disease. Per review of records was also diagnosed with Alpha-gal syndrome. Patient was also seen in
late October with complaints of cellulitis of right foot and was placed on Keflex then started on Bactrim by primary doctor. Presents 12/04/2024 with intermittent epigastric/chest discomfort for several days which has now become more persistent and
severe in nature prompting him to seek emergency medical attention. Patient reports he develops a epigastric pain that is sharp and when he takes a deep breath or tries to move it radiates upwards into his chest into his back and neck. He reports
it is worse with taking deep breaths. He notes some mild associated nausea. Initial troponin negative. EKG shows sinus rhythm with nonspecific T wave abnormality similar to prior tracings. D-dimer 1.28. Chest x-ray with low lung volumes and
bibasilar atelectasis with possible small right effusion. Blood pressure low but appears to be his baseline compared to prior blood pressures during recent admission. Given ongoing pain patient was given 3 doses of IV Dilaudid and IV acetaminophen
with some improvement of symptoms. Also was provided colchicine. At time of this evaluation patient still uncomfortable reporting epigastric discomfort radiating into the chest worse with taking deep breaths.
Progress Note - Senior Network Engineer
Subjective
Date of Service: December 08, 2024
He denies feeling lightheaded
Physical Exam
Physical Exam
GEN: NAD. AAOx3
HEENT: MMM
LUNGS: RA. No audible wheeze
CV: SR on tele
ABD: ND
EXT: No edema B/L
NEURO: Gross non-focal
SKIN: No rash
--- NOTE | 2024-12-08 10:05 | W.PN.HOSP.TC ---
Today's Communication/Plan
-
IV Lasix as per cardiology
Consult IR for right thoracentesis
Assessment / Plan
Assessment / Plan
#Acute on chronic HFrEF
#Moderate right pleural effusion
-Recent echo with EF of 10%, severe global left ventricular hypokinesis
-Given 1 dose of IV Lasix 12/08, Lasix changed to 20 mg p.o. twice daily
-Consult IR for thoracentesis
-Continue lisinopril and Coreg
-Jardiance has not been started yet
-Trend creatinine, trend daily weights
#Nonischemic dilated cardiomyopathy with LifeVest
Follow-up with [facility] outpatient for cardiac MRI
#Epigastric pressure/fullness/pain
#Gastritis
12/07 EGD shows gastritis, extrinsic compression of the mid esophagus, biopsies taken
GI recommends Protonix 40 mg p.o. daily, outpatient follow-up for possible manometry
#Intrathoracic lymphadenopathy
12/04 CT shows stable mild intrathoracic lymphadenopathy, recent biopsy shows it is reactive, negative for malignancy
Seen by hematology, reassurance provided, they signed off
# Acute pericarditis ruled out
-Appreciate cardiology input, echo not suggestive of pericarditis
-Discontinue colchicine
#History of alcohol use
Used to drink 4 beers a day, quit 2 weeks ago
#Insomnia
Started melatonin 10 mg and hydroxyzine 50 mg at bedtime
#Constipation
Most likely due to narcotic analgesic. Continue laxatives prn
#Hyperkalemia
Resolved
#Acute kidney injury
From receiving contrast for chest CT on 12/04
Resolved
Nonobstructive CAD
History of NSVT
Moderate mitral regurgitation
Pulmonary hypertension
CKD
Alpha gal syndrome
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
Asthma
History of [place] spotted fever
History of alcohol use
History of tobacco use
DVT prophylaxis�SCDs secondary to alpha-gal syndrome
Full code
Updated on phone 12/07
Total time spent to see the patient on the floor, examine the patient, review data and lab results, discuss treatment plan with patient, nursing staff around 51 minutes.
Physical Exam
General: Obese, no acute distress
HEENT: Normocephalic, Atraumatic, EOMI, MMM
Respiratory: Clear to Auscultation bilaterally
Cardiac: Normal S1/S2, Regular Rate and Rhythm
GI: Soft, Nontender, Nondistended, Normal Bowel Sounds
Extremities: No Clubbing, Cyanosis
2-3+ b/l LE edema
Neuro: Nonfocal/Grossly Intact
Psych: Calm, Cooperative
Anticipated Discharge: Within 24 hours
Subjective/Interval History
-
Date of Service: December 07, 2024
Patient complains of shortness of breath with leaning back. Abdominal pain improved, still feels like his abdomen is full. No fever, no vomiting.
Objective Data
-
Labs:
Laboratory Results
12/07/24
04:39
WBC 7.0
Hgb 13.5
Hct 40.5
Plt Count 212
Sodium 132 L
Potassium 4.5
Chloride 98
Carbon Dioxide 25
BUN 29 H
Creatinine 1.2
Glucose 94
Calcium 8.5
Vital Signs:
Vital Signs
Temp Pulse Resp BP Pulse Ox
98.5 F 93 16 95/73 97
12/07/24 11:17 12/07/24 15:00 12/07/24 11:17 12/07/24 11:17 12/07/24 11:17
I&O
12/06/24 12/07/24 12/08/24
06:59 06:59 06:59
Intake Total 480 / 480 730 / 730
Output Total 800 / 800
Balance 480 / 480 -70 / -70
[2024-12-08] MEDS: LASIX 40 MG IV (10:31)
[2024-12-08] MEDS: ZESTRIL PO (10:32)
--- NOTE | 2024-12-08 13:33 | CM ---
CM following for DC planning needs.
Reviewed initial assessment. Pt. resides in a private, 1 story home w/ spouse. Functionally, patient is indep. at baseline w/ ADLs, mobility without the use of any assisted device.
Anticipated DC plan is for home, no needs.
[employer] application in process for [place]. Call to veterans contact representative, Lydia who indicates that application is still PENDING.
Will remain avail.
--- NOTE | 2024-12-08 15:03 | PTCARENOTE ---
Pt is AOx3, no complaints of pain or discomfort. Pt to IRAD today. SR on tele monitor. Call tim within reach.
[2024-12-08 16:16] LABS: Erythrocyte Sed Rate 20 mm/hour (0-20)
[2024-12-08 16:26] LABS: LDH 264 U/L (120-246); Total Protein 6.3 g/dl (6.3-8.2)
--- NOTE | 2024-12-08 16:32 | W.PN.UPDATE ---
Addendum entered and electronically signed by Stephanie Torres PA-C 12/08/24 17:09:
Called again and talked to patient's again today. Talked for 16 min 32 sec.
Generic Corlanor cost for 60 tablets of 5 mg BID is $115. Generic cost for Farxiga is $180 for 30 pills at 10 mg daily at [facility].
Relayed to that I talked to the urgent MRI scheduling team. Also gave patient's the phone number for the rashid line [phone] as they will likely be paying [employer]
Reviewed that the CM team called [employer] yesterday and that it still another 15 days until we get a determination on his Medicaid application
indicated she was already aware of the adjusted appointment coming up next week
related concerns about nursing getting different blood pressure readings on RUE versus LUE. Talked with nursing anastasiia and asked them to record BPs on RUE and LUE back to back.
Original Note:
Update Note
Progress Note Update
Called patient's and no answer so left a message saying I'd call back again in 10 minutes or left IVU nursing statin phone # if she wants to call back sooner.
[2024-12-08 16:41] LABS: Body Fluid LDH 117 U/L; Body Fluid Protein 2.5 g/dl
[2024-12-08] MEDS: ATARAX 50 MG PO (22:10)
[2024-12-08] MEDS: MELATONIN 10 MG PO (22:10)
[2024-12-09] VITALS (13 sets, daily range): BP systolic 80–111; BP diastolic 61–87; BMI 29.3
--- NOTE | 2024-12-09 01:59 | PTCARENOTE ---
Assumed care of the pt @ 1900. Pt AAOX3 SR on the monitor. VSS Rt side back Thoracentesis site c/d/i bandage in place denies SOB. Pt is independent in the room. Call tim within reach.
--- NOTE | 2024-12-09 08:47 | W.PN.HOSP.TC ---
Today's Communication/Plan
-
see bold
Assessment / Plan
Assessment / Plan
#Acute on chronic HFrEF
#Moderate right pleural effusion
-Recent echo with EF of 10%, severe global left ventricular hypokinesis
-Given 1 dose of IV Lasix 12/08, Lasix changed to 20 mg p.o. twice daily - now held 12/09
-Status post right thoracentesis 12/09 draining 700 cc of pleural fluid
-Continue lisinopril and Coreg
-Started on Farxiga
-Trend creatinine, trend daily weights
#Nonischemic dilated cardiomyopathy with LifeVest
Follow-up with [facility] outpatient for cardiac MRI
#Epigastric pressure/fullness/pain
#Gastritis
12/07 EGD shows gastritis, extrinsic compression of the mid esophagus, biopsies taken
GI recommends Protonix 40 mg p.o. daily, outpatient follow-up for possible manometry
#Intrathoracic lymphadenopathy
12/04 CT shows stable mild intrathoracic lymphadenopathy, recent biopsy shows it is reactive, negative for malignancy
Seen by hematology, reassurance provided, they signed off
# Acute pericarditis ruled out
-Appreciate cardiology input, echo not suggestive of pericarditis
-Discontinued colchicine 12/08
#History of alcohol use
Used to drink 4 beers a day, quit 2 weeks ago
#Insomnia
Started melatonin 10 mg and hydroxyzine 50 mg at bedtime
#Constipation
Most likely due to narcotic analgesic. Continue laxatives prn
#Hyperkalemia
Resolved
#Acute kidney injury
From receiving contrast for chest CT on 12/04
Resolved
Nonobstructive CAD
History of NSVT
Moderate mitral regurgitation
Pulmonary hypertension
CKD
Alpha gal syndrome
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
Asthma
History of [place] spotted fever
History of alcohol use
History of tobacco use
DVT prophylaxis�SCDs secondary to alpha-gal syndrome
Full code
Updated on phone 12/07
Total time spent to see the patient on the floor, examine the patient, review data and lab results, discuss treatment plan with patient, nursing staff around 41 minutes.
Physical Exam
General: Obese, no acute distress
HEENT: Normocephalic, Atraumatic, EOMI, MMM
Respiratory: Diminished breath sounds at the bases with right basilar crackles
Cardiac: Normal S1/S2, Regular Rate and Rhythm
GI: Soft, Nontender, Nondistended, Normal Bowel Sounds
Extremities: No Clubbing, Cyanosis
2-3+ b/l LE edema
Neuro: Nonfocal/Grossly Intact
Psych: Calm, Cooperative
Anticipated Discharge: Within 24 hours
Subjective/Interval History
-
Date of Service: December 09, 2024
Patient reports his breathing is slightly improved. Continues to feel pressure around his abdominal area. No fever, no vomiting.
Objective Data
-
Labs:
Laboratory Results
12/09/24
08:05
WBC Pending
Hgb Pending
Hct Pending
Plt Count Pending
Sodium Pending
Potassium Pending
Chloride Pending
Carbon Dioxide Pending
BUN Pending
Creatinine Pending
Glucose Pending
Calcium Pending
Total Bilirubin Pending
AST Pending
ALT Pending
Alkaline Phosphatase Pending
Vital Signs:
Vital Signs
Temp Pulse Resp BP Pulse Ox
97.6 F 84 20 99/82 98
12/09/24 08:01 12/09/24 04:18 12/09/24 08:01 12/09/24 04:18 12/09/24 08:01
I&O
12/08/24 12/09/24 12/10/24
06:59 06:59 06:59
Output Total 600 / 600 1100 / 1100
Balance -600 / -600 -1100 / -1100
[2024-12-09] MEDS: VITAMIN B1 100 MG PO ×2 (09:19→21:03)
[2024-12-09] MEDS: FARXIGA 10 MG PO (09:19)
[2024-12-09] MEDS: FOLVITE 1 MG PO (09:19)
[2024-12-09] MEDS: ZESTRIL PO (09:20)
[2024-12-09] MEDS: MIRALAX PO (09:20)
[2024-12-09] MEDS: COLCHICINE PO (09:33)
[2024-12-09] MEDS: COREG 1.5625 MG PO ×2 (09:39→21:01)
[2024-12-09 09:45] LABS: Hematocrit 41.9 % (39.0-52.0); Hemoglobin 14.4 g/dL (13.0-18.0); Mean Corp Hgb Conc. 34.4 g/dL (33.0-37.0); Mean Corpuscular Hgb 30.6 pg (27.0-31.0); Mean Platelet Volume 10.1 fL (7.4-10.4); Platelet Count 220 10^3/uL (130-400); Red Blood Cell Count 4.71 10^6/uL (4.70-6.10); Red Cell Dist. Width 13.8 % (11.5-14.5); White Blood Cell Count 6.5 10^3/uL (4.8-10.8)
[2024-12-09 10:01] LABS: ALT (SGPT) 20 U/L (0-50); AST (SGOT) 20 U/L (17-59); Albumin 3.5 g/dl (3.5-5.0); Alkaline Phosphatase 110 U/L (38-126); Blood Urea Nitrogen 27 mg/dl (9-20); Calcium 8.7 mg/dl (8.4-10.2); Carbon Dioxide 25 mmol/L (22-30); Chloride 104 mmol/L (98-107); Estimated Creatinine Clearance 75 ml/min; Glucose 100 mg/dl (70-99); Potassium 4.3 mmol/L (3.5-5.1); Sodium 137 mmol/L (135-145); Total Bilirubin 0.7 mg/dl (0.2-1.3); Total Protein 6.2 g/dl (6.3-8.2); eGFR > 60.00
[2024-12-09 10:08] LABS: NT-proBNP 7860 pg/ml
[2024-12-09] MEDS: LASIX 20 MG IV (10:53)
[2024-12-09] MEDS: TORADOL 15 MG IV (13:51)
--- NOTE | 2024-12-09 13:51 | W.PN.UPDATE ---
Update Note
Progress Note Update
Patient complains of chest pain that started towards the end of his walk. Chest pain worse with a deep breath. Chest pain from left shoulder around to left breast. He says this is different than the pain from admission. ECG reviewed by me is SR with
nonspecific ST changes and unchanged form previous. Troponin urgent ordered by me. Will try a dose of Toradol 15 mg IV x1 now. Cre 1.3 today. If patient has significant pain relief then might restart colchicine that we had stopped yesterday. VS
reviewed and pulse ox 97% RA. Appreciate help of nursing. 31 min face to face and non-face to face critical care time.
Update: Troponin undetectable and patient feels better after Toradol. Will restart colchicine 0.3 mg BID
Update: Called and talked to patient's for 13 minutes 27 seconds to update her on the episode of chest pain and the decision to restart colchicine. Will fax patient's office note from today to his PCP at 's request. We discussed that the
patient will likely be stable for discharge to home tomorrow
--- NOTE | 2024-12-09 14:04 | PTCARENOTE ---
Patient used call tim to tell RN he is having left sided chest pain that radiates to back and down L arm. 03/03 pain. EKG obtained. JIG INSPECTOR aware and at bedside to assess. Left arm pain subsided. Toradol ordered. Trop sent. BP 94/78, HR 90, O2
99%RA
[2024-12-09 14:47] LABS: Troponin I < 0.012 ng/ml
[2024-12-09] MEDS: MELATONIN 10 MG PO (21:01)
[2024-12-09] MEDS: COLCHICINE 0.3 MG PO (21:03)
[2024-12-09] MEDS: ATARAX 50 MG PO (21:08)
[2024-12-10] VITALS (7 sets, daily range): BP systolic 83–94; BP diastolic 63–76; BMI 28.9
[2024-12-10] MEDS: BENADRYL 25 MG IV (00:40)
[2024-12-10] MEDS: FARXIGA 10 MG PO (09:01)
[2024-12-10] MEDS: VITAMIN B1 100 MG PO (09:01)
[2024-12-10] MEDS: COREG 1.5625 MG PO (09:01)
[2024-12-10] MEDS: MIRALAX PO (09:01)
[2024-12-10] MEDS: FOLVITE 1 MG PO (09:03)
[2024-12-10] MEDS: COLCHICINE 0.3 MG PO (09:03)
[2024-12-10] MEDS: ZESTRIL 2.5 MG PO (09:03)
--- NOTE | 2024-12-10 09:07 | W.PN.HOSP.TC ---
Today's Communication/Plan
-
Cleared by cardiology for discharge today
Assessment / Plan
Assessment / Plan
#Acute on chronic HFrEF
#Moderate right pleural effusion
-Recent echo with EF of 10%, severe global left ventricular hypokinesis
-Given 1 dose of IV Lasix 12/08, Lasix changed to 40 mg p.o. twice daily
-Status post right thoracentesis 12/09 draining 700 cc of pleural fluid
-Continue lisinopril and Coreg
-Started on Farxiga
-Trend creatinine, trend daily weights
-Cleared by cardiology for discharge
#Possible pericarditis
-Cardiology recommends continuing colchicine 0.3 mg twice a day, follow-up with cardiology in the office -has appointment on 12/14/24
#Nonischemic dilated cardiomyopathy with LifeVest
Follow-up with [facility] outpatient for cardiac MRI
#Epigastric pressure/fullness/pain
#Gastritis
12/07 EGD shows gastritis, extrinsic compression of the mid esophagus, biopsies taken
GI recommends Protonix 40 mg p.o. daily, outpatient follow-up for possible manometry
#Intrathoracic lymphadenopathy
12/04 CT shows stable mild intrathoracic lymphadenopathy, recent biopsy shows it is reactive, negative for malignancy
Seen by hematology, reassurance provided, they signed off
#History of alcohol use
Used to drink 4 beers a day, quit 2 weeks ago
#Insomnia
Started melatonin 10 mg and hydroxyzine 50 mg at bedtime
#Constipation
Most likely due to narcotic analgesic. Continue laxatives prn
#Hyperkalemia
Resolved
#Acute kidney injury
From receiving contrast for chest CT on 12/04
Resolved
Nonobstructive CAD
History of NSVT
Moderate mitral regurgitation
Pulmonary hypertension
CKD
Alpha gal syndrome
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
Asthma
History of [place] spotted fever
History of alcohol use
History of tobacco use
DVT prophylaxis�SCDs secondary to alpha-gal syndrome
Full code
Updated on phone 12/07
Physical Exam
General: Obese, no acute distress
HEENT: Normocephalic, Atraumatic, EOMI, MMM
Respiratory: Diminished breath sounds at the bases with right basilar crackles
Cardiac: Normal S1/S2, Regular Rate and Rhythm
GI: Soft, Nontender, Nondistended, Normal Bowel Sounds
Extremities: No Clubbing, Cyanosis
2-3+ b/l LE edema
Neuro: Nonfocal/Grossly Intact
Psych: Calm, Cooperative
Anticipated Discharge: Today
Subjective/Interval History
-
Date of Service: December 10, 2024
Patient denies shortness of breath, denies dyspnea with activity. Abdominal pressure, improved. No fever, no vomiting.
Objective Data
-
Vital Signs:
Vital Signs
Temp Pulse Resp BP Pulse Ox
98.7 F 83 18 94/67 87
12/10/24 03:11 12/10/24 09:03 12/10/24 03:11 12/10/24 09:03 12/10/24 03:12
I&O
12/09/24 12/10/24 12/11/24
06:59 06:59 06:59
Intake Total 1600 / 1600
Output Total 1100 / 1100 275 / 275
Balance -1100 / -1100 1325 / 1325
--- NOTE | 2024-12-10 09:15 | PTCARENOTE ---
received patient this am in bed, awake. monitor shows NSR, BP 94/67, HR 87. patient c/o vague pain in left upper shoulder, 'sometimes radiates to chest', informed patient if pain becomes worse to please notify me. patient stated, 'I always have
this'.
--- NOTE | 2024-12-10 11:12 | CM ---
CM following for DC planning needs.
Reviewed DC plan for home w/ spouse without needs.
CM will cont. to follow.
--- NOTE | 2024-12-10 11:22 | W.PN.CARDCBS ---
Addendum entered and electronically signed by Chevy Chandra MD 12/10/24 14:14:
I saw and examined the patient.
The Key Punch Operator's note was reviewed and I agree with the note.
Comment: Briefly, 49-year-old man past medical history of heart failure with severely reduced ejection fraction presenting with chest discomfort
By his description, presenting symptoms seem most consistent with decompensated heart failure
Treated with IV Lasix and underwent thoracentesis. With this he tells me breathing has improved significantly.
Appears relatively well compensated from a volume standpoint today
Would discharge home on a higher dose of Lasix, 40 mg twice daily
Counseled on daily weights, salt/fluid restriction
Continue Coreg, lisinopril and Farxiga�blood pressure is unlikely to tolerate up titration of these medications
With concern for pericarditis he is also being treated for with colchicine, okay to continue from my standpoint
Underwent GI workup as well and was identified as having gastritis which may be contributing to his symptoms
Stable for discharge from my perspective
Outpatient cardiology follow-up has been arranged
Original Note:
Today's Communication / Plan
-
-d/c today
-increase outpt Lasix to 40 mg bid
-cont low dose Colchicine
-cont Farxiga, low dose Lisinopril, and Coreg
-close outpt f/u
Impression / Plan
-
PCP: Jessica Sanders
Pan Helper: Dr. Erickson
Impression:
Presents 12/04/2024 with complaints of epigastric and chest discomfort radiating upwards worse with inspiration and deep breaths
Elevated D-dimer
Possible pericarditis
no effusion on echo, inflammatory markers not checked on admission, Troponin serially undetectable
colchicine stopped prior to d/c
Possible eosinophilic esophagitis
Extrinsic compression mid esophagus on upper endoscopy 12/07/24
SHANELL
Chronic HFrEF
Nonischemic cardiomyopathy, EF 18%
Nonobstructive CAD on C 11/16/2024
NSVT on tele 11/16/2024
LifeVest as an outpatient
Pulmonary hypertension
Hepatomegaly
h/o Pleural effusion
Alpha-Gal syndrome
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
status post IR biopsy of left inguinal lymph node, no evidence of lymphoma 11/15/24
Tobacco abuse
Daily alcohol use
History of [place] Spotted Fever
Asthma
Echo 11/11/2024: EF 10% with severe global hypokinesis. Moderately dilated left ventricle. Mild concentric LVH. Stage III DD. Moderate MR, mild to moderate TR, PAP 35 to 40 mmHg
LHC/RHC 11/16/2024: Elevated right/left ventricular filling pressures, normal coronary arteries; recommendation cease all alcohol, IV diuresis for elevated pressures.
Echo 12/04/2024: Ejection fraction 18%, severely dilated ventricle with global hypokinesis and septal akinesis, dilated and hypokinetic right ventricle with PA pressure of 33-38 mmHg, no pericardial effusion
Plan:
-Weight is down 9 lbs since admission. Wt today 213 lbs. Last dose Lasix 20 mg IV times 12/09/24. Resume oral Lasix but increase dose to 40 mg bid.
-s/p thoracentesis R 12/09/2024
-Echo repeated this admission shows mild improvement in EF to 18%. No pericardial effusion. Will need repeat echo at 90 days.
-Patient with LifeVest therapy that was initiated last admission and should be resumed upon d/c to home this admission. TT to CM to make sure that re-authorization is needed to resume this service.
-Patient with NICM and had nonobstructive CAD by cath last admission. Previously drinking about 4 beers a day, but has completely eliminated ETOH since his last admission.
-Will need eventual cardiac MRI. Scheduled for cardiac MRI 01/13/25. I called MRI dept on 12/08/24 and then sent a TT to the 'urgent MRI' team to ask about moving up the study. Patient planning to pay [employer] and information for the rashid line to
patient's .
-Outpatient dose of lisinopril 2.5 mg daily was ordered to be held by patient's PCP due to symptomatic hypotension as an outpatient, he had essentially not taken a dose for a week prior to admission. Restarted lisinopril 2.5 mg daily 12/08/24, but
holding for SBP less than 100 due to outpatient symptomatic hypotension.
-Patient's says that they are going to pay out of pocket for generic dapagliflozin (Farxiga) 10 mg daily, it will be $180/month. Farxiga 10 mg daily started 12/07/24.
-Outpatient dose of Coreg 1.5625 mg BID has been continued
-Labs ordered by me for 12/09/24. SHANELL earlier this admission Cre as high as 1.5 was likely due to contrast from CT on admission. No indication that patient has CKD. Creat 1.3 12/10/2024
-Upper endoscopy 12/07/24 report describes extrinsic compression in the mid esophagus. Biopsies were taken for eosinophilic esophagitis. Possibly his epigastric and chest pain is due to a GI issue. GI has signed off.
-Heme/Onc saw patient 12/07/24 to review lymph node biopsy and skin biopsy last admission and there is no evidence of lymphoma. 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 CT chest from 12/04/24 describes stable mild mediastinal,
hilar and bilateral axillary adenopathy.
-Patient with h/o [place] Spotted Fever and subsequent Alpha-gal syndrome. Pharmacy updated and alpha-gal listed as an allergy so that patient will no be given any mammal protein products including heparin and gel coated capsules.
-Patient with chest and epigastric pain on admission. Patient was not started on NSAID due to SHANELL from contrast. Patient was started on colchicine 0.3 mg BID due to interaction with Coreg. Despite addition of colchicine the patient continued with
pain prompting GI eval as noted above. Pain relief has been challenging and patient requiring Dilaudid PRN (now d/c'd) and Percocet PRN, and Toradol PRN. . Colchicine was stopped but then restarted 12/09/2024 due to recurrent pain after walking.
Troponin was checked 12/09/24 and was negative. Unclear if pain due to pericarditis, but has had recurrent pain whenever we've stopped Colchicine in past so will continue it in outpatient setting at 0.3 mg BID.
-Talked with CM on 12/07/24 and patient still does not have a determination from [employer] on [employer]. Patient also asking about SSD and CM was asking [employer] about that as well.
-Stephaniejose alejandro Maldonadorakesh updated patient's by phone 12/07/24 and 12/08/24
Hospital course: Patient was admitted with new diagnosis of acute HF and NICM 11/11/24 until 11/19/24. Cardiac cath with nonobstructive CAD 11/16/24. Also with diffuse adenopathy during that admission and had lymph node biopsy and there is concern
for Castleman disease,. Separately patient has been diagnosed with Alpha-gal syndrome and has a h/o [place] Spotted fever symptoms in 2018, but was not treated until 2020. Patient was d/c'd to home on 11/19/24 and then readmitted on 12/04/24
with epigastric and chest pain. Troponin levels serially undetectable. Echo without pericardial effusion. Pain was being relieved with Dilaudid which is atypical for pericarditis. Colchicine 0.3 mg BID ordered, but then stopped due to lack of
objective evidence for pericarditis. Given Lasix IV 12/08/24 and 12/09/24 with adequate diuresis. GI did upper endoscopy and taken biopsies for eosinophilic esophagitis. Heme/Onc saw patient and reviewed lymph node biopsy path report from last
admission and no evidence of lymphoma.
HPI 12/04/2024: Patient is a 49-year-old male with past medical history significant for heart failure with reduced ejection fraction, nonischemic cardiomyopathy, nonobstructive coronary artery disease on catheterization October 2024, nonsustained
ventricular tachycardia, moderate MR, pulmonary hypertension, CKD, hepatomegaly with history of ascites, asthma, [place] spotted fever and history of tobacco and alcohol abuse. Patient had recent admission in 11/11/2024 with abdominal
distention, lower extremity edema, palpable adenopathy he was found to have significant ascites and peripheral edema. He was found to have a nonischemic cardiomyopathy with a EF of 10% and nonobstructive coronary artery disease on catheterization.
He had moderate MR and pulmonary hypertension on catheterization. Given his diffuse adenopathy had lymph node biopsy for concerns of cattleman's disease. Per review of records was also diagnosed with Alpha-gal syndrome. Patient was also seen in
late October with complaints of cellulitis of right foot and was placed on Keflex then started on Bactrim by primary doctor. Presents 12/04/2024 with intermittent epigastric/chest discomfort for several days which has now become more persistent and
severe in nature prompting him to seek emergency medical attention. Patient reports he develops a epigastric pain that is sharp and when he takes a deep breath or tries to move it radiates upwards into his chest into his back and neck. He reports
it is worse with taking deep breaths. He notes some mild associated nausea. Initial troponin negative. EKG shows sinus rhythm with nonspecific T wave abnormality similar to prior tracings. D-dimer 1.28. Chest x-ray with low lung volumes and
bibasilar atelectasis with possible small right effusion. Blood pressure low but appears to be his baseline compared to prior blood pressures during recent admission. Given ongoing pain patient was given 3 doses of IV Dilaudid and IV acetaminophen
with some improvement of symptoms. Also was provided colchicine. At time of this evaluation patient still uncomfortable reporting epigastric discomfort radiating into the chest worse with taking deep breaths.
Progress Note - Pan Helper
Subjective
Date of Service: December 10, 2024
-wt down 9 lbs since admission
-was able to shower this morning without SOB, CP
-back on Colchicine 0.3 mg bid, but not clear this has improved symptoms
-BPs mostly 90s/60s
-s/p R thoracentesis 12/09/2024 for 700 cc clear yellow pleural fluid-cultures pending
Objective
Labs:
12/09/24 09:37
12/09/24 09:37
Labs
Hgb 14.4 g/dL (13.0-18.0) 12/09/24 09:37
Hct 41.9 % (39.0-52.0) 12/09/24 09:37
Plt Count 220 10^3/uL (130-400) 12/09/24 09:37
PT 15.4 Sec (11.4-14.6) H 12/04/24 11:18
INR 1.19 12/04/24 11:18
APTT 29.6 Sec (23.4-35.0) 12/04/24 11:18
Sodium 137 mmol/L (135-145) 12/09/24 09:37
Potassium 4.3 mmol/L (3.5-5.1) 12/09/24 09:37
BUN 27 mg/dl (9-20) H 12/09/24 09:37
Creatinine 1.3 mg/dL (0.7-1.3) 12/09/24 09:37
Glucose 100 mg/dl (70-99) H 12/09/24 09:37
Troponins
12/09/24
13:58
Troponin I < 0.012
Vital Signs and I&O:
Vital Signs
Temp Pulse Resp BP Pulse Ox
97.7 F 87 16 9467 98
12/10/24 09:08 12/10/24 09:08 12/10/24 09:08 12/10/24 09:08 12/10/24 09:08
Vital Signs
Temp Pulse Resp BP Pulse Ox
97.7 F 87 16 9467 98
12/10/24 09:08 12/10/24 09:08 12/10/24 09:08 12/10/24 09:08 12/10/24 09:08
Intake & Output
12/08/24 12/09/24 12/10/24 12/11/24
06:59 06:59 06:59 06:59
Intake Total 1600 / 1600
Output Total 600 / 600 1100 / 1100 275 / 275
Balance -600 / -600 -1100 / -1100 1325 / 1325
Physical Exam
Physical Exam
GEN: No distress, awake, Ox3
HEENT: supple, anicteric, mmm
LUNGS: CTA, no wheezes/rales
CV: Reg, S1/S2, no murmur
ABD: soft, BS+, NT/ND
EXT: No edema
NEURO: Gross non-focal
SKIN: No rash
--- NOTE | 2024-12-10 14:35 | W.DCSUMMARY ---
Discharge Summary
Discharge Data
Date of Admission: 12/04/24
Date of Discharge: 12/10/24
-
Pending Results: No
Hospital Course
Discharge diagnosis:
Acute on chronic heart failure with a reduced ejection fraction
Moderate right pleural effusion status post thoracentesis
Possible pericarditis
Nonischemic dilated cardiomyopathy with LifeVest
Gastritis
Epigastric pressure
Mild stable intrathoracic lymphadenopathy
Insomnia
Constipation
Hyperkalemia
Acute kidney injury
Alpha gal syndrome
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
History of [place] spotted fever
Pulmonary hypertension
Former alcohol use
Former tobacco use
Consults: Cardiology, GI, oncology
Chest CT:
1. No evidence of pulmonary embolism.
2. Small left and moderate right pleural effusions, stable.
3. Stable mild intrathoracic lymphadenopathy.
4. Mild upper abdominal ascites.
Echocardiogram 12/04/2024:
Ejection fraction 18%, severely dilated ventricle with global hypokinesis and septal akinesis, dilated and hypokinetic right ventricle with PA pressure of 33-38 mmHg, no pericardial effusion
12/07/2024 endoscopy
Impression: - Extrinsic compression in the mid esophagus.
- Biopsies were taken with a cold forceps for
evaluation of eosinophilic esophagitis.
- Erythematous mucosa in the stomach.
- Gastritis. Biopsied.
- Normal examined duodenum. Biopsied.
Recommendation: - Await pathology results.
- Use Protonix (pantoprazole) 40 mg PO daily today.
-Consider outpatient esophageal manometry if it is not
felt that extrinsic compression on the esophagus is
causing his symptoms.
12/08/2024 right thoracentesis draining 700 cc of pleural fluid
Hospital course:
49-year-old male with a past medical history of cardiomyopathy with LifeVest, CHF, pulmonary hypertension, alpha gal syndrome, and [place] spotted fever who presented with chest pain concerning for pericarditis. He was started on colchicine
0.3 mg twice a day. Patient was seen in conjunction with cardiology. It is unclear if patient actually has pericarditis. Echocardiogram did not show pericardial effusion. In either case, cardiology recommends continuing colchicine for 6 weeks.
Patient had acute kidney injury from receiving contrast for his chest CT. His creatinine was monitored, and normalized. He had hyperkalemia, this resolved. He also was constipated, and received laxatives.
Patient complained of epigastric pressure and abdominal fullness. He was seen in conjunction with GI, and had endoscopy which shows gastritis. GI recommends pantoprazole 40 mg daily, and follow-up in the office for possible esophageal manometry.
The endoscopy noted mild extrinsic compression in the mid-esophagus. His chest CT showed mild stable intrathoracic lymphadenopathy. Patient was seen in conjunction with oncology. He had a recent lymph node biopsy, that was reactive. Oncology
provided reassurance.
Patient had increased swelling of his lower extremities, and shortness of breath. Cardiology treated him with IV Lasix, and increased his oral Lasix to 40 mg twice a day. Patient had a right pleural effusion. He had a thoracentesis that drained
700 cc. His cardiac medications were limited by soft blood pressure. Cardiology recommends he be discharged on low doses of Coreg, lisinopril, and Jardiance.
Patient's multiple medical conditions have been optimized. He is cleared by cardiology for discharge. He has an appointment with cardiology in the office on 12/14/2024. He also needs to follow-up with his primary care doctor in 1 week.
Disposition: Home self-care
Discharge planning: Required 40 minutes
Discharge Plan
-
Patient Disposition: Home (Routine Discharge)
Discharge Diagnosis/Procedures: Possible pericarditis, gastritis, chronic heart failure, acute kidney injury, nonischemic cardiomyopathy, pulmonary hypertension, moderate right pleural effusion status post thoracentesis, mild thoracic
lymphadenopathy
Condition: Fair
Diet: 2 Gram Sodium and Restrict fluids to 64 oz
Activity: As tolerated
Driving Restrictions: As prior to admission
Specialty Instructions: Weigh Daily- Call MD for wt gain/loss 3 lbs overnight/5 lbs in 1 week
Activity Restrictions/Additional Instructions:
-Your appt to see cardiology has been rescheduled to 12/14/24 at 1:[address] Mary Zambrano and her PA Stephanie at the [place] office.
Referrals:
Jessica Sanders MD [Family Provider] - in one week
Mary Zambrano MD [Active] - 12/14/24 3:20 pm (Please not change in appt time, you are now scheduled to see Dr. Mary Zambrano and her physician urology physician assistant, Stephanie, at the [place] office on 12/14/24 at 3:20 PM. Please call [phone] if you
need to reschedule.)
Additional Discharge Medication Instructions: -Start taking dapagliflozin (Farxiga) 10 mg once a day
-Do not take lisinopril if your systolic blood pressure is less than 100.
-Take Lasix (furosemide) 40 mg twice a day (8AM and 4 PM suggested)
Prescriptions:
New
dapagliflozin propanediol 10 mg tablet
10 mg PO DAILY Qty: 30 11RF
colchicine 0.6 mg Tablet
0.3 mg PO BID Qty: 60 0RF
pantoprazole 40 mg tablet,delayed release (DR/EC)
40 mg PO DAILY Qty: 30 0RF
Continued
fluticasone propion-salmeterol 250-50 mcg/dose Blister With Device
1 inh INHALATION R QPM
albuterol sulfate 90 mcg/actuation Hfa Aerosol Inhaler
2 puff INHALATION R Q6HPRN PRN (Reason: sob)
carvedilol 3.125 mg tablet
1.5625 mg PO BID
lisinopril 2.5 mg tablet
2.5 mg PO HS
Changed
furosemide 40 mg tablet
40 mg PO BID@0800,1600 Qty: 60 0RF
Discharge Orders:
Discharge Patient (As Directed); Ordered 12/10/24
Ordered By: Bj Cleveland
Care Plan Goals
Care Plan Goals:
Problem: Readiness for enhanced knowledge related to diagnosis and treatment plan
Goal: Understand your diagnosis and treatment plan needs, including medications if applicable.
Instructions: Know your diagnosis, underlying causes and treatment plan options, including medications if applicable. Consult with your health care team to learn about your diagnosis and treatment plan, including medications if applicable.
Discharge Date and Time
Discharge Date/Time: 12/10/24 16:16
Print Language: SAMOAN
[2024-12-10] MEDS: PROTONIX 40 MG PO (14:37)
--- NOTE | 2024-12-10 16:03 | PTCARENOTE ---
D/C instructions given to patient and both verbalizes understanding. INT D/C'd, telemetry D/C'd, and Life Vest placed. personal belongings packed and sent home with patient. D/C to home via wc accompanied by vol. services.
== END 2024-12-10 16:16 | disposition home or self-care (01) | DRG 391 ==
LOC: IVU 14:52
PROVIDERS: Emergency Medicine; Internal Medicine Cardiovascular Disease; Nurse Practitioner; Physician Assistant Medical; Radiology Vascular & Interventional Radiology; ADMITTING PHYSICIAN Hospitalist; ATTENDING PHYSICIAN Family Medicine; CONSULT PHYSICIAN Internal Medicine; CONSULT PHYSICIAN Internal Medicine Cardiovascular Disease; EMERGENCY PHYSICIAN Emergency Medicine; FAMILY PHYSICIAN Family Medicine; OTHER PHYSICIAN Nurse Practitioner Acute Care
PROC: 0DB68ZX Excision of Stomach, Via Natural or Artificial Opening Endoscopic, Diagnostic (ICD-10-PCS; 2024-12-07)
PROC: 0DB98ZX Excision of Duodenum, Via Natural or Artificial Opening Endoscopic, Diagnostic (ICD-10-PCS; 2024-12-07)
PROC: 0DB38ZX Excision of Lower Esophagus, Via Natural or Artificial Opening Endoscopic, Diagnostic (ICD-10-PCS; 2024-12-07)
PROC: 0DB18ZX Excision of Upper Esophagus, Via Natural or Artificial Opening Endoscopic, Diagnostic (ICD-10-PCS; 2024-12-07)
PROC: 0W993ZZ Drainage of Right Pleural Cavity, Percutaneous Approach (ICD-10-PCS; 2024-12-08)
DX: K20.0 Eosinophilic esophagitis (principal); I50.23 Acute on chronic systolic (congestive) heart failure; D47.Z2 Castleman disease; I30.9 Acute pericarditis, unspecified; I42.0 Dilated cardiomyopathy; N17.9 Acute kidney failure, unspecified; R18.8 Other ascites; I47.20 Ventricular tachycardia, unspecified; J98.11 Atelectasis; E74.29 Other disorders of galactose metabolism; D76.3 Other histiocytosis syndromes; I27.20 Pulmonary hypertension, unspecified; K29.60 Other gastritis without bleeding; G47.00 Insomnia, unspecified; T40.605A Adverse effect of unspecified narcotics, initial encounter; K59.03 Drug induced constipation; E87.5 Hyperkalemia; F17.210 Nicotine dependence, cigarettes, uncomplicated; I25.10 Atherosclerotic heart disease of native coronary artery without angina pectoris; I08.1 Rheumatic disorders of both mitral and tricuspid valves; N18.9 Chronic kidney disease, unspecified; J45.909 Unspecified asthma, uncomplicated; Z79.899 Other long term (current) drug therapy; Z86.0100 Personal history of colon polyps, unspecified; Z91.011 Allergy to milk products; Z80.0 Family history of malignant neoplasm of digestive organs; F10.21 Alcohol dependence, in remission; K22.2 Esophageal obstruction
CPT/HCPCS: 88305; 93308; 32555; 71045; 71275; 80048; 80053; 83615; 83880; 84155; 84157; 84484; 85025; 85027; 85379; 85610; 85652; 85730; 86140; 87015; 87070; 87205; 88313; 88342; 93005; 93321; 93325; 96374; 96375; 96376; 99291; 99406; Q9967

== ENCOUNTER → 2025-01-04 12:28 | Outpatient (REF) | payer MEDICAID, SELFPAY ==
[2025-01-04 16:10] LABS: D-Dimer 0.83 ug/mlFEU (0.00-0.50)
[2025-01-04 16:27] LABS: NT-proBNP 9050 pg/ml
[2025-01-04 17:27] LABS: Blood Urea Nitrogen 24 mg/dl (9-20); Calcium 8.9 mg/dl (8.4-10.2); Carbon Dioxide 27 mmol/L (22-30); Chloride 99 mmol/L (98-107); Glucose 106 mg/dl (70-99); Magnesium 2.1 mg/dl (1.6-2.3); Potassium 3.8 mmol/L (3.5-5.1); Sodium 136 mmol/L (135-145); eGFR > 60.00
== END ==
LOC: HWLAB 12:28
PROVIDERS: ATTENDING PHYSICIAN Nurse Practitioner; FAMILY PHYSICIAN Family Medicine; REFERRING PHYSICIAN Physician Assistant Medical
DX: I50.21 Acute systolic (congestive) heart failure (principal); I27.20 Pulmonary hypertension, unspecified; N18.9 Chronic kidney disease, unspecified
CPT/HCPCS: 36415; 71046; 80048; 83735; 83880; 85379

== ENCOUNTER → 2025-01-11 11:01 | Outpatient (REF) | payer MEDICAID, SELFPAY ==
[2025-01-11 12:58] LABS: Blood Urea Nitrogen 18 mg/dl (9-20); Calcium 8.9 mg/dl (8.4-10.2); Carbon Dioxide 29 mmol/L (22-30); Chloride 103 mmol/L (98-107); Glucose 93 mg/dl (70-99); Magnesium 2.3 mg/dl (1.6-2.3); Potassium 4.1 mmol/L (3.5-5.1); Sodium 139 mmol/L (135-145); eGFR > 60.00
[2025-01-11 13:00] LABS: D-Dimer 1.02 ug/mlFEU (0.00-0.50)
[2025-01-11 13:17] LABS: NT-proBNP 7170 pg/ml
== END ==
LOC: HWLAB 11:01
PROVIDERS: ATTENDING PHYSICIAN Physician Assistant Medical
DX: I27.20 Pulmonary hypertension, unspecified (principal); I25.10 Atherosclerotic heart disease of native coronary artery without angina pectoris; N18.9 Chronic kidney disease, unspecified
CPT/HCPCS: 36415; 80048; 83735; 83880; 85379

== ENCOUNTER → 2025-01-13 08:36 | Outpatient (REF) | payer MEDICAID, SELFPAY | LOC: PAVMRI 08:36 | PROVIDERS: ATTENDING PHYSICIAN Nurse Practitioner; FAMILY PHYSICIAN Family Medicine; REFERRING PHYSICIAN Internal Medicine Cardiovascular Disease | DX: I50.21 Acute systolic (congestive) heart failure (principal); I34.0 Nonrheumatic mitral (valve) insufficiency | CPT/HCPCS: 75561; 75565; A9585 ==

== ENCOUNTER → 2025-01-14 13:00 | Outpatient (REF) | payer MEDICAID, SELFPAY ==
[2025-01-14 15:28] LABS: % Basophils 0.8 % (0-2); % Eosinophils 3.1 % (0-6); % Immature Granulocytes 0.1 % (0-0.5); % Lymphocytes 30.3 % (20.5-51.1); % Monocytes 6.8 % (1.7-9.3); % Neutrophils 58.9 % (42.2-75.2); Absolute Basophils 0.1 10^3/uL (0-0.2); Absolute Eosinophils 0.2 10^3/uL (0-0.7); Absolute Lymphocytes 2.2 10^3/uL (1.2-3.4); Absolute Monocytes 0.5 10^3/uL (0.1-0.6); Absolute Neutrophils 4.2 10^3/uL (1.4-6.5); Hematocrit 42.7 % (39.0-52.0); Hemoglobin 14.1 g/dL (13.0-18.0); Mean Corpuscular Hgb 29.7 pg (27.0-31.0); Mean Corpuscular Volume 89.9 fL (80.0-94.0); Mean Platelet Volume 10.7 fL (7.4-10.4); Nucleated Red Blood Cells % 0 % (-); Platelet Count 188 10^3/uL (130-400); Red Blood Cell Count 4.75 10^6/uL (4.70-6.10); Red Cell Dist. Width 14.9 % (11.5-14.5); White Blood Cell Count 7.1 10^3/uL (4.8-10.8)
[2025-01-14 15:36] LABS: Blood Urea Nitrogen 16 mg/dl (9-20); Carbon Dioxide 27 mmol/L (22-30); Chloride 103 mmol/L (98-107); Glucose 83 mg/dl (70-99); Magnesium 2.2 mg/dl (1.6-2.3); Potassium 4.1 mmol/L (3.5-5.1); Sodium 138 mmol/L (135-145); eGFR > 60.00
== END ==
LOC: HWLAB 13:00
PROVIDERS: ATTENDING PHYSICIAN Internal Medicine Cardiovascular Disease
DX: N17.9 Acute kidney failure, unspecified (principal); I50.20 Unspecified systolic (congestive) heart failure
CPT/HCPCS: 36415; 80048; 83735; 85025

== ENCOUNTER → 2025-05-05 08:35 | Outpatient (REF) | payer OTHER, SELFPAY | LOC: WDC 08:35 | PROVIDERS: ATTENDING PHYSICIAN Physician Assistant | DX: N64.4 Mastodynia (principal) | CPT/HCPCS: 76642; 77062; 77066 ==